=== PATIENT | female | born 1960 | race Caucasian/White ===

== ENCOUNTER 2016-11-17 15:39 | Inpatient (IN) | payer OTHER ==
[~2016-11-17] VITALS: Ht 152.4 cm; Wt 108.3 kg
[~2016-11-17 15:39] MED LIST: AMLO-114 PO; ASPEC81 PO; ATOR-24 PO; ATRIN INH; CARV25TA PO; CLON0.2T PO; CLOP1TAB15 PO; CMBIN INH; EFFSR375 PO; FLV1 PO; HYG/25 PO; LISI40TA PO; MGNO400 PO; NORT50CA PO; POTA20TA13 PO; PRV100 PO; PYR50 PO; VTMB12 PO; XNX25 PO
[2016-11-17 17:12] LABS: BASO % 0.3 %; BASO ABS # 0.03 K/uL (0-0.2); COMPLETE YES; EOS % 0.7 %; HEMATOCRIT 43.4 % (37-47); IG% 0.4 %; LYMPH % 19.7 %; LYMPH ABS # 2.19 K/uL (1.2-3.4); MEAN CELL VOLUME 98.9 fL (80-100); MEAN CORPUSCULAR HEMOGLOBIN 29.4 pg (25-34); MEAN CORPUSCULAR HGB CONC 29.7 g/dl (32-36); MEAN PLATELET VOLUME 11.1 fL (7.4-10.4); MONO % 5.9 %; PLATELET COUNT 243 K/uL (130-400); RED BLOOD COUNT 4.39 M/uL (4.2-5.4); WHITE BLOOD COUNT 11.12 K/uL (4.8-10.8)
[2016-11-17 17:20] LABS: ALT/SGPT 32 U/L (12-78); AST/SGOT 27 U/L (15-37); BLOOD UREA NITROGEN 7 mg/dl (7-18); BUN/CREATININE RATIO 10.3 (10-20); CALCIUM 8.9 mg/dl (8.5-10.1); CHLORIDE 95 mmol/L (98-107); CREATININE 0.64 mg/dl (0.60-1.20); GLUCOSE 88 mg/dl (70-99); POTASSIUM 2.9 mmol/L (3.5-5.1); SODIUM 143 mmol/L (136-145)
[2016-11-17 17:24] LABS: ALB/GLOB RATIO 0.8 (0.9-2); ALKALINE PHOSPHATASE 102 U/L (45-117)
[2016-11-17] MEDS ORDERED: LISI-725 PO (17:32)
[2016-11-17] MEDS ORDERED: MAGN400T6 PO (17:32)
[2016-11-17] MEDS ORDERED: AMLO10TA2 PO (17:32)
[2016-11-17] MEDS ORDERED: ASPI81TA28 PO (17:32)
[2016-11-17] MEDS ORDERED: ALPR0.25 PO (17:32)
[2016-11-17] MEDS ORDERED: CTP/1 PO (17:32)
[2016-11-17] MEDS ORDERED: FOLI1TAB7 PO (17:32)
[2016-11-17] MEDS ORDERED: CARV12.52 PO (17:32)
[2016-11-17] MEDS ORDERED: VENL150T33 PO (17:32)
[2016-11-17] MEDS ORDERED: IPRA1AER2 INH (17:32)
[2016-11-17] MEDS ORDERED: CYAN100020 PO (17:32)
[2016-11-17] MEDS ORDERED: VENL-271 PO (17:32)
--- NOTE | 2016-11-17 17:38 | DIAGNOSTIC IMAGING REPORT ---
CHEST 2 VIEWS ROUTINE CLINICAL HISTORY: Respiratory distress. Dyspnea. COMPARISON STUDY: Chest radiograph June 26, 2016. FINDINGS: There is no pneumothorax. Small left and tlzzx-up-jejamlop right pleural effusions are present. There is associated bibasilar opacities. There is pulmonary vascular congestion. Cardiomegaly is unchanged. IMPRESSION: 1. Small to moderate right and small left pleural effusions with associated bibasilar opacities which favor atelectasis. 2. Pulmonary vascular congestion with suspected mild pulmonary edema. 3. Stable cardiomegaly. Electronically signed by: Wesley Love M.D. 11/17/2016 5:37 PM Dictated Date/Time: 11/17/2016 5:35 PM
[2016-11-17 17:53] LABS: CARBON DIOXIDE 47 mmol/L (21-32)
[2016-11-17] MEDS ORDERED: POTASSIUM CHLORIDE 10 MEQ TABCR PO STA (18:52)
[2016-11-17 19:05] LABS: VEN BLD GAS O2 SATURATION 86.1 %; VEN BLOOD GAS BASE EXCESS 18.2 mmol/L
[2016-11-17] MEDS ORDERED: ONDANSETRON INJ 2 MG/ML 2 ML VIAL IV PRN (20:00)
[2016-11-17] MEDS ORDERED: ACETAMINOPHEN 325 MG TAB PO PRN (20:00)
[2016-11-17] MEDS ORDERED: ALPRAZOLAM 0.25 MG TAB PO PRN (20:00)
[2016-11-17] MEDS ORDERED: NITROGLYCERIN 0.4 MG SL PER TAB CHARGE SL PRN (20:00)
[2016-11-17] MEDS ORDERED: MODA100T17 PO (20:06)
[2016-11-17 20:15] VITALS: PULSE 77; O2SAT 94
[2016-11-17] MEDS ORDERED: ALBUTEROL 0.083% NEBU SOLN 3 ML VIAL INH PRN (20:15)
--- NOTE | 2016-11-17 20:23 | History and Physical ---
History & Physical Date & Time of Service: Nov 17, 2016 at 20:14 Chief Complaint: Retaining Fluid, Trouble Breathing Primary Care Physician: No Doctor, Assigned History of Present Illness Source: patient Patient is a 56 yr old female with PMH of CKD II, Diastolic CHF, Tobacco use disorder, Sleep apnea, COPD, HTN, H/O CVA and other comorbidities presents with history of worsening SOB with exertion since 2 weeks. Also reports chest congestion since 2 days. Chest discomfort is retrosternal in location, dull, radiates to back, increases with exertion and deep breathing, associated with nausea, vomiting, diaphoresis and dizziness. States gaining 30 pounds and worsening bilateral leg swelling. Admits to missing her home medications intermittently. Patient is on 4lNC at baseline and denies any excess requirement. Also reports dry cough and chills but denies wheezing, fever. Also denies orthopnea, PND, abd pain, diarrhea, urinary symptoms, palpitations, headache, blurry vision bt states having generalized weakness. Past Medical/Surgical History Medical Problems: (1) CVA (cerebral vascular accident) Status: Chronic (2) Depression with anxiety Status: Chronic (3) Dyslipidemia Status: Chronic (4) HTN (hypertension) Status: Chronic (5) Hypokalemia Status: Chronic (6) MTHFR mutation Status: Chronic Surgical Problems: (1) History of hysterectomy Status: Chronic (2) Hx of cholecystectomy Status: Chronic (3) Hx of tubal ligation Status: Chronic Family History FH: CHF (congestive heart failure) BROTHER FH: brain aneurysm MOTHER ( in her 40s) FH: diabetes mellitus FATHER ( in his 70s) FH: multiple sclerosis BROTHER Social History Smoking Status: Former Smoker Alcohol Use: none Drug Use: none Housing status: lives alone Immunizations History of Influenza Vaccine: Yes Influenza Vaccine Date: Apr 06, 2015 History of Tetanus Vaccine?: Yes Tetanus Immunization Date: December 19, 2007 History of Pneumococcal: Yes Pneumococcal Date: Jan 24, 2007 Multi-Drug Resistant Organisms History of MDRO: No Allergies Coded Allergies: Penicillins (Verified Allergy, Unknown, 06/21/16) Home Medications Scheduled Amlodipine Besylate (Norvasc), 10 MG PO DAILY Aspirin (Aspirin Ec), 81 MG PO DAILY Atorvastatin (Lipitor), 40 MG PO DAILY Carvedilol (Coreg), 12.5 MG PO BID Chlorthalidone (Hygroton), 25 MG PO QAM Clonidine Hcl (Catapres), 0.1 MG PO BID Clopidogrel (Plavix), 75 MG PO DAILY Cyanocobalamin (Vitamin B12), 500 MCG PO DAILY Folic Acid (Folvite), 1 MG PO DAILY Ipratropium-Albuterol (Combivent Respimat), 1 PUFF INH QID Lisinopril (Zestril), 20 MG PO DAILY Magnesium Oxide (Mag-Ox), 400 MG PO DAILY Modafinil (Provigil), 100 MG PO DAILY Nortriptyline (Pamelor), 50 MG PO HS Potassium Chloride Microencaps (Potassium Chloride Er), 20 MEQ PO DAILY Venlafaxine Hcl (Venlafaxine Hcl Er), 37.5 MG PO DAILY Venlafaxine Hcl (Venlafaxine Hcl Er), 150 MG PO DAILY Scheduled PRN Alprazolam (Xanax), 0.25 MG PO TID PRN for Anxiety Review of Systems See HPI for pertinent positives & negatives. A total of 10 systems reviewed and were otherwise negative. Physical Exam Vital Signs Date Time Temp Pulse Resp B/P Pulse Ox O2 Delivery O2 Flow Rate FiO2 11/17/16 18:24 76 19 147/95 94 Nasal Cannula 3.0 11/17/16 17:28 74 22 150/98 97 Nasal Cannula 3.0 11/17/16 17:05 99 Nasal Cannula 3.0 11/17/16 16:40 96 Nasal Cannula 3.0 11/17/16 16:37 73 11/17/16 16:26 81 20 167/89 99 Nasal Cannula 3.0 11/17/16 15:44 36.8 70 24 142/84 97 Room Air General Appearance: WD/WN, no apparent distress, + obese Head: normocephalic, atraumatic Eyes: normal inspection, PERRL, EOMI, sclerae normal ENT: normal ENT inspection, hearing grossly normal Neck: supple, no JVD, trachea midline Respiratory/Chest: lungs clear, no respiratory distress, no accessory muscle use, + decreased breath sounds, + pertinent finding (Positive chest tenderness) Cardiovascular: regular rate, rhythm, no murmur, + pertinent finding (B/L LE edema) Abdomen/GI: normal bowel sounds, non tender, soft, + pertinent finding (Obese) Back: normal inspection, normal range of motion Extremities/Musculoskelatal: normal inspection, + swelling (B/L LE) 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, no motor/sensory deficits, alert, normal mood/affect, oriented x 3 Skin: normal color, warm/dry, no rash Diagnostics Laboratory Results Results Past 24 Hours Test 11/17/16 16:40 11/17/16 18:50 11/17/16 19:54 11/17/16 20:11 Range/Units White Blood Count 11.12 4.8-10.8 K/uL Red Blood Count 4.39 4.2-5.4 M/uL Hemoglobin 12.9 12.0-16.0 g/dL Hematocrit 43.4 37-47 % Mean Corpuscular Volume 98.9 80-100 fL Mean Corpuscular Hemoglobin 29.4 25-34 pg Mean Corpuscular Hemoglobin Concent 29.7 32-36 g/dl Platelet Count 243 130-400 K/uL Mean Platelet Volume 11.1 7.4-10.4 fL Neutrophils (%) (Auto) 73.0 % Lymphocytes (%) (Auto) 19.7 % Monocytes (%) (Auto) 5.9 % Eosinophils (%) (Auto) 0.7 % Basophils (%) (Auto) 0.3 % Neutrophils # (Auto) 8.11 1.4-6.5 K/uL Lymphocytes # (Auto) 2.19 1.2-3.4 K/uL Monocytes # (Auto) 0.66 0.11-0.59 K/uL Eosinophils # (Auto) 0.08 0-0.5 K/uL Basophils # (Auto) 0.03 0-0.2 K/uL RDW Standard Deviation 49.0 36.4-46.3 fL RDW Coefficient of Variation 13.6 11.5-14.5 % Immature Granulocyte % (Auto) 0.4 % Immature Granulocyte # (Auto) 0.05 0.00-0.02 K/uL Sodium Level 143 136-145 mmol/L Potassium Level 2.9 3.5-5.1 mmol/L Chloride Level 95 98-107 mmol/L Carbon Dioxide Level 47 21-32 mmol/L Anion Gap 1.0 3-11 mmol/L Blood Urea Nitrogen 7 7-18 mg/dl Creatinine 0.64 0.60-1.20 mg/dl Est Creatinine Clear Calc Drug Dose 115.6 ml/min Estimated GFR () 116.4 Estimated GFR (Non- 100.5 BUN/Creatinine Ratio 10.3 10-20 Random Glucose 88 70-99 mg/dl Calcium Level 8.9 8.5-10.1 mg/dl Total Bilirubin 0.9 0.2-1 mg/dl Aspartate Amino Transf (AST/SGOT) 27 15-37 U/L Alanine Aminotransferase (ALT/SGPT) 32 12-78 U/L Alkaline Phosphatase 102 45-117 U/L Troponin I < 0.015 0-0.045 ng/ml Pro-B-Type Natriuretic Peptide 3729 0-900 pg/ml Total Protein 8.0 6.4-8.2 gm/dl Albumin 3.5 3.4-5.0 gm/dl Globulin 4.5 2.5-4.0 gm/dl Albumin/Globulin Ratio 0.8 0.9-2 Venous Blood pH 7.36 7.36-7.41 Venous Blood Partial Pressure CO2 87 38.0-50.0 mmHg Venous Blood Partial Pressure O2 52 mmHg Venous Blood HCO3 48 mmol/L Venous Blood Oxygen Saturation 86.1 % Venous Blood Base Excess 18.2 mmol/L Diagnostic Radiology CXR: 1. Small to moderate right and small left pleural effusions with associated bibasilar opacities which favor atelectasis. 2. Pulmonary vascular congestion with suspected mild pulmonary edema. 3. Stable cardiomegaly. EKG EKG:pending Impression Assessment and Plan ACUTE ON CHRONIC DIASTOLIC HEART FAILURE HYPOXIC/HYPERCAPNIC RESPIRATORY FAILURE AND OXYGEN DEPENDENCY Admit to tele Presents with worsening SOB on exertion and chest congestion, dry cough, weight gain and leg swelling CXR: Pulm vascular congestion with pleural effusions Has underlying COPD, Former smoker, sleep apnea. ? suspect obesity hypoventilation syndrome Last ECHO: May 2016: Preserved EF, grade I diastolic Admits to medication non compliance Start IV lasix 40mg BID Daily weight, I/Os, Fluid and salt restriction Oxygen support Update ECHO CHEST PAIN Less likely: As pleuritic type, reproducible R/O ACS Check serial cardiac enzymes, EKG Initial Troponin: normal Check resting echo for wall motion abnormalities Consider stress test if needed HYPOKALEMIA Likely to secondary to home diuretics:chlorthalidone Will replace potassium Check Mag levels Monitor while on IV diuretics HTN Slightly elevated continue carvedilol, amlodipine, lisinopril, and clonidine chlorthalidone on hold while on Lasix HX CVA, MTHFR MUTATION continue statin, ASA, and Plavix DEPRESSION, ANXIETY continue Effexor, Nortriptyline COPD: No signs of exacerbation Continue inhalers CKD II: Stable Monitor renal function Obesity: BMI:49.9 DVT PX SQ Heparin CODE STATUS: Full code DISPOSITION: Monitor in Tele VTE Prophylaxis VTE Risk Assessment Done? Y/N: Yes Risk Level: Low
[2016-11-17 20:48] LABS: INR 1.1 (0.9-1.1); PROTHROMBIN TIME (PATIENT) 11.4 SECONDS (9.0-12.0)
[2016-11-17] MEDS ORDERED: NORTRIPTYLINE HCL 25 MG CAP PO SCH (21:00)
[2016-11-17 21:05] VITALS: PULSE 90; O2SAT 94
[2016-11-17 21:37] VITALS: BP 146/85; PULSE 76; TEMP 36.7; O2SAT 94; Ht 152.4 cm; Wt 108.3 kg
[2016-11-17 22:47] VITALS: BP 146/92; PULSE 76
[2016-11-17] MEDS: POTASSIUM CHLR 10 MEQ / WTR 10 MEQ in PREMIXED WATER 100 ML IV SCH (22:48)
[2016-11-17] MEDS: FUROSEMIDE INJ 40 MG in SYRINGE 0 ML IV SCH (22:48)
[2016-11-17] MEDS: CLONIDINE HCL 0.1 MG TAB PO SCH (22:55)
[2016-11-17] MEDS: NORTRIPTYLINE HCL 25 MG CAP PO SCH (22:55)
[2016-11-17] MEDS: CARVEDILOL 12.5 MG TAB PO SCH (22:56)
[2016-11-17] MEDS: IPRATROPIUM BROMIDE/ALBUTEROL respimat INH INH SCH (22:57)
[2016-11-17] MEDS: HEPARIN SOD 5000 UNIT/0.5 ML CARP SQ SCH (23:01)
[2016-11-17 23:07] VITALS: PULSE 76; O2SAT 95
--- NOTE | 2016-11-17 23:31 | EMERGENCY ROOM VISIT NOTE ---
History Report prepared by Abdulaziz: Nina Munoz Under the Supervision of: Dr. Elliot Nixon D.O. 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 The patient states that she normally wears 4 L of oxygen all the time but has still been experiencing worsening shortness of breath. She states that over the last month she also has some chest tightness and congestion as well as a cough. The patient states that she saw her PCP today and they referred her to come into the ED. The patient states that along with her SOB she has had a weight gain of about 30 lbs in the last month. She states that she does not weight herself daily even though her PCP told her to due to her history of CHF. The patient states that she takes a diuretic daily but states she has missed a dose once in a while. The patient states that she also has some increased swelling in her legs. The patient states that she has a history of COPD but no history of using blood thinners or any history of atrial fibrillation or blood clots. The patient states that she normal is able to ambulate by herself but the last few days she has felt too weak and worsening shortness of breath with exertion to ambulate on her own. The patient states that she has had a hard time sleeping recently but states she sleeps lying flat with only one pillow and has not had to increase the amount of pillow she uses to sit up more straight when she sleeps. 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 increased swelling in legs, 30 lbs weight gain over last month, unable to ambulate, difficulty sleeping. Review of Systems See above for pertinent positives & negatives. A total of 10 systems reviewed and were otherwise negative. Past Medical & Surgical Medical Problems: (1) CVA (cerebral vascular accident) (2) Depression with anxiety (3) Dyslipidemia (4) HTN (hypertension) (5) Hypokalemia (6) MTHFR mutation (7) SOB (shortness of breath) Surgical Problems: (1) History of hysterectomy (2) Hx of cholecystectomy (3) Hx of tubal ligation Family History FH: CHF (congestive heart failure) BROTHER FH: brain aneurysm MOTHER ( in her 40s) FH: diabetes mellitus FATHER ( in his 70s) FH: multiple sclerosis BROTHER Social History Smoking Status: Former Smoker Marital Status: single Occupation Status: disabled Current/Historical Medications Scheduled Amlodipine Besylate (Norvasc), 10 MG PO DAILY Aspirin (Aspirin Ec), 81 MG PO DAILY Atorvastatin (Lipitor), 40 MG PO DAILY Carvedilol (Coreg), 12.5 MG PO BID Chlorthalidone (Hygroton), 25 MG PO QAM Clonidine Hcl (Catapres), 0.1 MG PO BID Clopidogrel (Plavix), 75 MG PO DAILY Cyanocobalamin (Vitamin B12), 500 MCG PO DAILY Folic Acid (Folvite), 1 MG PO DAILY Ipratropium-Albuterol (Combivent Respimat), 1 PUFF INH QID Lisinopril (Zestril), 20 MG PO DAILY Magnesium Oxide (Mag-Ox), 400 MG PO DAILY Modafinil (Provigil), 100 MG PO DAILY Nortriptyline (Pamelor), 50 MG PO HS Potassium Chloride Microencaps (Potassium Chloride Er), 20 MEQ PO DAILY Venlafaxine Hcl (Venlafaxine Hcl Er), 37.5 MG PO DAILY Venlafaxine Hcl (Venlafaxine Hcl Er), 150 MG PO DAILY Scheduled PRN Alprazolam (Xanax), 0.25 MG PO TID PRN for Anxiety Allergies Coded Allergies: Penicillins (Verified Allergy, Unknown, 06/21/16) Physical Exam Vital Signs Date Time Temp Pulse Resp B/P Pulse Ox O2 Delivery O2 Flow Rate FiO2 11/17/16 18:24 76 19 147/95 94 Nasal Cannula 3.0 11/17/16 17:28 74 22 150/98 97 Nasal Cannula 3.0 11/17/16 17:05 99 Nasal Cannula 3.0 11/17/16 16:40 96 Nasal Cannula 3.0 11/17/16 16:37 73 11/17/16 16:26 81 20 167/89 99 Nasal Cannula 3.0 11/17/16 15:44 36.8 70 24 142/84 97 Room Air Physical Exam GENERAL: Morbidly obese, sitting up in bed on nasal cannula, disheveled. EYE EXAM: normal conjunctiva OROPHARYNX: no exudate, no erythema, lips, buccal mucosa, and tongue normal and mucous membranes are moist NECK: supple, no nuchal rigidity, no adenopathy, non-tender LUNGS: Diminished and course bilaterally. Normal chest wall mechanics HEART: distant, no murmurs, S1 normal and S2 normal ABDOMEN: abdomen soft, non-tender, normo-active bowel sounds, no masses, no rebound or guarding. BACK: Back is symmetrical on inspection and there is no deformity, no midline tenderness, no CVA tenderness. SKIN: no rashes and no bruising UPPER EXTREMITIES: upper extremities are grossly normal. LOWER EXTREMITIES: faint pitting edema. NEURO EXAM: Normal sensorium, cranial nerves II-XII intact, normal speech, no weakness of arms, no weakness of legs. Gross sensation intact Medical Decision & Procedures ER Provider Diagnostic Interpretation: Radiology results as stated below per my review and the radiologist's interpretation: CHEST 2 VIEWS ROUTINE CLINICAL HISTORY: Respiratory distress. Dyspnea. COMPARISON STUDY: Chest radiograph June 26, 2016. FINDINGS: There is no pneumothorax. Small left and hqwiu-am-prchakal right pleural effusions are present. There is associated bibasilar opacities. There is pulmonary vascular congestion. Cardiomegaly is unchanged. IMPRESSION: 1. Small to moderate right and small left pleural effusions with associated bibasilar opacities which favor atelectasis. 2. Pulmonary vascular congestion with suspected mild pulmonary edema. 3. Stable cardiomegaly. Electronically signed by: Wesley Love M.D. 11/17/2016 5:37 PM Dictated Date/Time: 11/17/2016 5:35 PM Laboratory Results 11/17/16 16:40 Red Blood Count 4.39, Mean Corpuscular Volume 98.9, Mean Corpuscular Hemoglobin 29.4, Mean Corpuscular Hemoglobin Concent 29.7, Mean Platelet Volume 11.1, Neutrophils (%) (Auto) 73.0, Lymphocytes (%) (Auto) 19.7, Monocytes (%) (Auto) 5.9, Eosinophils (%) (Auto) 0.7, Basophils (%) (Auto) 0.3, Neutrophils # (Auto) 8.11, Lymphocytes # (Auto) 2.19, Monocytes # (Auto) 0.66, Eosinophils # (Auto) 0.08, Basophils # (Auto) 0.03 11/17/16 16:40 Test 11/17/16 16:40 11/17/16 18:50 White Blood Count 11.12 K/uL (4.8-10.8) Red Blood Count 4.39 M/uL (4.2-5.4) Hemoglobin 12.9 g/dL (12.0-16.0) Hematocrit 43.4 % (37-47) Mean Corpuscular Volume 98.9 fL (80-100) Mean Corpuscular Hemoglobin 29.4 pg (25-34) Mean Corpuscular Hemoglobin Concent 29.7 g/dl (32-36) Platelet Count 243 K/uL (130-400) Mean Platelet Volume 11.1 fL (7.4-10.4) Neutrophils (%) (Auto) 73.0 % Lymphocytes (%) (Auto) 19.7 % Monocytes (%) (Auto) 5.9 % Eosinophils (%) (Auto) 0.7 % Basophils (%) (Auto) 0.3 % Neutrophils # (Auto) 8.11 K/uL (1.4-6.5) Lymphocytes # (Auto) 2.19 K/uL (1.2-3.4) Monocytes # (Auto) 0.66 K/uL (0.11-0.59) Eosinophils # (Auto) 0.08 K/uL (0-0.5) Basophils # (Auto) 0.03 K/uL (0-0.2) RDW Standard Deviation 49.0 fL (36.4-46.3) RDW Coefficient of Variation 13.6 % (11.5-14.5) Immature Granulocyte % (Auto) 0.4 % Immature Granulocyte # (Auto) 0.05 K/uL (0.00-0.02) Anion Gap 1.0 mmol/L (3-11) Est Creatinine Clear Calc Drug Dose 115.6 ml/min Estimated GFR () 116.4 Estimated GFR (Non- 100.5 BUN/Creatinine Ratio 10.3 (10-20) Calcium Level 8.9 mg/dl (8.5-10.1) Total Bilirubin 0.9 mg/dl (0.2-1) Aspartate Amino Transf (AST/SGOT) 27 U/L (15-37) Alanine Aminotransferase (ALT/SGPT) 32 U/L (12-78) Alkaline Phosphatase 102 U/L (45-117) Pro-B-Type Natriuretic Peptide 3729 pg/ml (0-900) Total Protein 8.0 gm/dl (6.4-8.2) Albumin 3.5 gm/dl (3.4-5.0) Globulin 4.5 gm/dl (2.5-4.0) Albumin/Globulin Ratio 0.8 (0.9-2) Venous Blood pH 7.36 (7.36-7.41) Venous Blood Partial Pressure CO2 87 mmHg (38.0-50.0) Venous Blood Partial Pressure O2 52 mmHg Venous Blood HCO3 48 mmol/L Venous Blood Oxygen Saturation 86.1 % Venous Blood Base Excess 18.2 mmol/L Laboratory results per my review. Medications Administered Medications (Trade) Dose Ordered Sig/Serjio Route Start Time Stop Time Status Last Admin Dose Admin Potassium Chloride (Klor-Con M10) 40 meq NOW STAT PO 11/17/16 18:52 11/17/16 18:53 DC 11/17/16 19:10 40 MEQ ECG Indication: SOB/dyspnea Rate (beats per minute): 67 Rhythm: sinus rhythm Findings: other (Normal intervals, Normal axis, poor baseline in inferior leads. ) ED Course ED COURSE: Vital signs were reviewed and showed Normal vitals The patients medical record was reviewed The above diagnostic studies were performed and reviewed. ED treatments and interventions as stated above. 1644: The patient was evaluated in room A11. A complete history and physical examination was performed. 1851: Ordered Potassium Chloride 40 meq PO. 1856: I revaluated the patient and she was hemodynamically stable. .I discussed my findings with the patient and she understands and agrees with being admitted to the hospital for further management and care of her symptoms.Based on the patients age, coexisting illnesses, exam and lab findings the decision to treat as an inpatient was made. 1917: I discussed the case with Dr. Emmanuelle Stacy Hospitalist. He agreed to evaluate the patient for further management and care. Medical Decision Differential diagnoses includes but is not limited to pneumonia, bronchitis, COPD/Asthma exacerbation, pneumothorax, pulmonary embolism, congestive heart failure, acute coronary syndrome Patient is a 56-year-old female who presents the ER for shortness of breath which has been worsening over the past month associated with a dry cough. She notes that she has gained 30 pounds in the past 3 weeks. She also admits to chest pain and congestion for the past several weeks as well. She chronically wears 4 L nasal cannula. Labs show no significant leukocytosis, BMP shows hypokalemia at 2.9 which was repleted along with an elevated CO2 of 47. BMP was elevated at 4000. VBG shows a CO2 of 87. Patient remained on nasal cannula and was placed on BiPAP for her hypercarbic respiratory failure. I do believe that there is component of CHF with her chest x-ray supports a bilateral pleural effusions and pulmonary edema which I believe is slightly worse than her previous. EKG was unchanged. Patient was updated bedside and discussed with internal medicine for admission. Consults Time Called: 1914 Consulting Physician: Dr. Emmanuelle Stacy [facility]. Returned Call: 1917 I discussed the case with Dr. Emmanuelle Stacy Hospitalist. He agreed to evaluate the patient for further management and care. Impression Primary Impression: Acute respiratory failure with hypoxia and hypercarbia Additional Impressions: Pleural effusion SOB (shortness of breath) Scribe Attestation The scribe's documentation has been prepared under my direction and personally reviewed by me in its entirety. I confirm that the note above accurately reflects all work, treatment, procedures, and medical decision making performed by me. Departure Information Dispostion Being Evaluated By Hospitalist Referrals Toan Dozier M.D. (PCP) Patient Instructions My [facility] Problem Qualifiers
[2016-11-18] VITALS (13 sets, daily range): BP systolic 98–153; BP diastolic 65–93; PULSE 63–72; TEMP 36.4–37.1; O2SAT 91–96
[2016-11-18] MEDS: POTASSIUM CHLR 10 MEQ / WTR 10 MEQ in PREMIXED WATER 100 ML IV SCH ×3 (00:11→02:36)
[2016-11-18] MEDS: HEPARIN SOD 5000 UNIT/0.5 ML CARP SQ SCH ×3 (05:55→20:44)
[2016-11-18 06:29] LABS: URINE APPEARANCE CLEAR (CLEAR); URINE BILIRUBIN NEG (NEG); URINE COLOR YELLOW; URINE NITRITE NEG (NEG); URINE PH 6.5 (4.5-7.5); URINE SPECIFIC GRAVITY 1.012 (1.000-1.030); UROBILINOGEN NEG (NEG)
[2016-11-18 06:33] LABS: MANUAL MICROSCOPIC REQUIRED? NO; REVIEW REQ? NO
[2016-11-18 07:55] LABS: BASO % 0.3 %; BASO ABS # 0.03 K/uL (0-0.2); HEMATOCRIT 39.9 % (37-47); IG% 0.1 %; LYMPH % 28.9 %; LYMPH ABS # 2.72 K/uL (1.2-3.4); MEAN CORPUSCULAR HEMOGLOBIN 29.2 pg (25-34); MEAN CORPUSCULAR HGB CONC 29.8 g/dl (32-36); MEAN PLATELET VOLUME 10.8 fL (7.4-10.4); MONO % 6.5 %; NEUT % 62.2 %; PLATELET COUNT 227 K/uL (130-400); RED BLOOD COUNT 4.07 M/uL (4.2-5.4); WHITE BLOOD COUNT 9.41 K/uL (4.8-10.8)
[2016-11-18] MEDS ORDERED: PERFLUTREN LIPID MICROSPHERE (DEFINITY) IV ONE (08:03)
[2016-11-18 08:17] LABS: COMPLETE YES; STOMATOCYTE 2+
[2016-11-18] MEDS: FUROSEMIDE INJ 40 MG in SYRINGE 0 ML IV SCH ×2 (08:23→17:12)
[2016-11-18] MEDS: MAGNESIUM OXIDE 400 MG TAB PO SCH (08:24)
[2016-11-18] MEDS: CLONIDINE HCL 0.1 MG TAB PO SCH ×2 (08:24→20:40)
[2016-11-18] MEDS: ASPIRIN 81 MG ECTAB PO SCH (08:24)
[2016-11-18 08:25] LABS: BUN/CREATININE RATIO 11.1 (10-20); CREATININE 0.63 mg/dl (0.60-1.20); POTASSIUM 2.9 mmol/L (3.5-5.1)
[2016-11-18] MEDS: LISINOPRIL 20 MG TAB PO SCH (08:25)
[2016-11-18] MEDS: VENLAFAXINE HCL XR 150 MG CAPXR PO SCH (08:25)
[2016-11-18] MEDS: CARVEDILOL 12.5 MG TAB PO SCH ×2 (08:25→20:40)
[2016-11-18] MEDS: ATORVASTATIN 40 MG TAB PO SCH (08:26)
[2016-11-18] MEDS: AMLODIPINE BESYLATE 5 MG TAB PO SCH (08:26)
[2016-11-18] MEDS: CLOPIDOGREL BISULFATE 75 MG TAB PO SCH (08:26)
[2016-11-18] MEDS: POTASSIUM CHLORIDE 20 MEQ TABCR PO SCH (08:27)
[2016-11-18] MEDS: IPRATROPIUM BROMIDE/ALBUTEROL respimat INH INH SCH (08:31)
[2016-11-18] MEDS: MODAFINIL 100 MG TAB PO SCH (08:31)
[2016-11-18 08:49] LABS: CALCIUM 8.6 mg/dl (8.5-10.1)
--- NOTE | 2016-11-18 10:58 | Progress Note ---
Medicine Progress Note Date & Time of Visit: Nov 18, 2016 at 10:43. Subjective patient seen resting in bed, comfortable on nasal cannula states her breathing has improved compared to yesterday cough is less, no sputum no chest pain denies other symptoms Objective Last 8 Hrs Date Time Temp Pulse Resp B/P Pulse Ox O2 Delivery O2 Flow Rate FiO2 11/18/16 07:35 36.4 68 20 153/93 94 BiPAP 11/18/16 05:53 68 94 40 11/18/16 04:18 36.8 72 18 119/67 93 CPAP 11/18/16 04:00 BiPAP Physical Exam: General-oriented x 3, not in distress, speaks in sentences with no effort Head- atraumatic Eyes- EOMI, anicteric ENT- oropharynx clear Neck- supple, no JVD, no adenopathy, no thyromegaly; no bruits appreciated Lungs- mild rales at the right base, no wheezing Heart- regular rhythm; no murmur, normal rate Abdomen- normal bowel sounds, soft, nontender Extremities- no pretibial edema, no calf tenderness; peripheral pulses intact Neuro- alert, oriented x 3;no gross focal deficits Skin- warm & dry Laboratory Results: Last 24 Hours Test 11/17/16 16:40 11/17/16 18:50 11/17/16 20:31 11/18/16 02:22 White Blood Count 11.12 K/uL Red Blood Count 4.39 M/uL Hemoglobin 12.9 g/dL Hematocrit 43.4 % Mean Corpuscular Volume 98.9 fL Mean Corpuscular Hemoglobin 29.4 pg Mean Corpuscular Hemoglobin Concent 29.7 g/dl Platelet Count 243 K/uL Mean Platelet Volume 11.1 fL Neutrophils (%) (Auto) 73.0 % Lymphocytes (%) (Auto) 19.7 % Monocytes (%) (Auto) 5.9 % Eosinophils (%) (Auto) 0.7 % Basophils (%) (Auto) 0.3 % Neutrophils # (Auto) 8.11 K/uL Lymphocytes # (Auto) 2.19 K/uL Monocytes # (Auto) 0.66 K/uL Eosinophils # (Auto) 0.08 K/uL Basophils # (Auto) 0.03 K/uL RDW Standard Deviation 49.0 fL RDW Coefficient of Variation 13.6 % Immature Granulocyte % (Auto) 0.4 % Immature Granulocyte # (Auto) 0.05 K/uL Sodium Level 143 mmol/L Potassium Level 2.9 mmol/L Chloride Level 95 mmol/L Carbon Dioxide Level 47 mmol/L Anion Gap 1.0 mmol/L Blood Urea Nitrogen 7 mg/dl Creatinine 0.64 mg/dl Est Creatinine Clear Calc Drug Dose 115.6 ml/min Estimated GFR () 116.4 Estimated GFR (Non- 100.5 BUN/Creatinine Ratio 10.3 Random Glucose 88 mg/dl Calcium Level 8.9 mg/dl Total Bilirubin 0.9 mg/dl Aspartate Amino Transf (AST/SGOT) 27 U/L Alanine Aminotransferase (ALT/SGPT) 32 U/L Alkaline Phosphatase 102 U/L Troponin I < 0.015 ng/ml < 0.015 ng/ml < 0.015 ng/ml Pro-B-Type Natriuretic Peptide 3729 pg/ml Total Protein 8.0 gm/dl Albumin 3.5 gm/dl Globulin 4.5 gm/dl Albumin/Globulin Ratio 0.8 Venous Blood pH 7.36 Venous Blood Partial Pressure CO2 87 mmHg Venous Blood Partial Pressure O2 52 mmHg Venous Blood HCO3 48 mmol/L Venous Blood Oxygen Saturation 86.1 % Venous Blood Base Excess 18.2 mmol/L Prothrombin Time 11.4 SECONDS Prothromb Time International Ratio 1.1 Hepatitis C Antibody Screen NEG Test 11/18/16 06:09 11/18/16 07:35 11/18/16 10:25 Urine Color YELLOW Urine Appearance CLEAR Urine pH 6.5 Urine Specific [place] 1.012 Urine Protein NEG Urine Glucose (UA) NEG Urine Ketones 2+ Urine Occult Blood NEG Urine Nitrite NEG Urine Bilirubin NEG Urine Urobilinogen NEG Urine Leukocyte Esterase NEG White Blood Count 9.41 K/uL Red Blood Count 4.07 M/uL Hemoglobin 11.9 g/dL Hematocrit 39.9 % Mean Corpuscular Volume 98.0 fL Mean Corpuscular Hemoglobin 29.2 pg Mean Corpuscular Hemoglobin Concent 29.8 g/dl Platelet Count 227 K/uL Mean Platelet Volume 10.8 fL Neutrophils (%) (Auto) 62.2 % Lymphocytes (%) (Auto) 28.9 % Monocytes (%) (Auto) 6.5 % Eosinophils (%) (Auto) 2.0 % Basophils (%) (Auto) 0.3 % Neutrophils # (Auto) 5.85 K/uL Lymphocytes # (Auto) 2.72 K/uL Monocytes # (Auto) 0.61 K/uL Eosinophils # (Auto) 0.19 K/uL Basophils # (Auto) 0.03 K/uL RDW Standard Deviation 48.1 fL RDW Coefficient of Variation 13.4 % Immature Granulocyte % (Auto) 0.1 % Immature Granulocyte # (Auto) 0.01 K/uL Stomatocytes 2+ Sodium Level 145 mmol/L Potassium Level 2.9 mmol/L Chloride Level 91 mmol/L Carbon Dioxide Level 54 mmol/L Anion Gap 0.0 mmol/L Blood Urea Nitrogen 7 mg/dl Creatinine 0.63 mg/dl Est Creatinine Clear Calc Drug Dose 116.1 ml/min Estimated GFR () 117.0 Estimated GFR (Non- 101.0 BUN/Creatinine Ratio 11.1 Random Glucose 70 mg/dl Calcium Level 8.6 mg/dl Troponin I 0.016 ng/ml Pro-B-Type Natriuretic Peptide 3045 pg/ml Assessment & Plan ACUTE ON CHRONIC DIASTOLIC HEART FAILURE CHRONIC HYPOXIC/HYPERCAPNIC RESPIRATORY FAILURE Presents with worsening SOB on exertion and chest congestion, dry cough, weight gain and leg swelling CXR: Pulm vascular congestion with pleural effusions Has underlying COPD, Former smoker, sleep apnea. ? suspect obesity hypoventilation syndrome Last ECHO: May 2016: Preserved EF, grade I diastolic -- from non adherence to medications, diet -- continue Lasix 40mg BID monitor i&o ff up echo CHEST PAIN R/O ACS cardiac markers negative ekg: no signs of ischemia continue Aspirin, Plavix, Statin, Carvedilol, Lisinopril will consult Cardiology HYPOKALEMIA Likely to secondary to home diuretics:chlorthalidone - oral K ordered check Mg HTN continue carvedilol, amlodipine, lisinopril, and clonidine chlorthalidone on hold while on Lasix HX CVA, MTHFR MUTATION continue statin, ASA, and Plavix DEPRESSION, ANXIETY stable continue Effexor, Nortriptyline COPD stable change Combivent to scheduled Nebs CKD II: Stable Monitor renal function Obesity: BMI:49.9 DVT PX SQ Heparin CODE STATUS: Full code DISPOSITION: Monitor in Tele Current Inpatient Medications: Current Inpatient Medications Medications (Trade) Dose Ordered Sig/Serjio Route Start Time Stop Time Status Last Admin Dose Admin Heparin Sodium (Porcine) (Heparin Sq 5000 Unit/0.5ml) 5,000 unit Q8 SQ 11/17/16 22:00 12/17/16 21:59 11/18/16 05:55 5,000 UNIT Acetaminophen (Tylenol Tab) 650 mg Q4H PRN PO 11/17/16 20:00 12/17/16 19:59 Ondansetron HCl (Zofran Inj) 4 mg Q6H PRN IV 11/17/16 20:00 12/17/16 19:59 Nitroglycerin 0.4 mg 0.4 mg UD PRN SL 11/17/16 20:00 12/17/16 19:59 Furosemide/Syringe (Lasix Inj/ Syringe) 4 ml @ 4 mls/min BID17 IV 11/17/16 21:00 12/17/16 20:59 11/18/16 08:23 4 MLS/MIN Alprazolam (Xanax Tab) 0.25 mg TID PRN PO 11/17/16 20:00 12/17/16 19:59 Amlodipine Besylate (Norvasc Tab) 10 mg DAILY PO 11/18/16 09:00 12/18/16 08:59 11/18/16 08:26 10 MG Aspirin (Ecotrin Tab) 81 mg DAILY PO 11/18/16 09:00 12/18/16 08:59 11/18/16 08:24 81 MG Atorvastatin Calcium (Lipitor Tab) 40 mg DAILY PO 11/18/16 09:00 12/18/16 08:59 11/18/16 08:26 40 MG Carvedilol (Coreg Tab) 12.5 mg BID PO 11/17/16 21:00 12/17/16 20:59 11/18/16 08:25 12.5 MG Clonidine HCl (Catapres Tab) 0.1 mg BID PO 11/17/16 21:00 12/17/16 20:59 11/18/16 08:24 0.1 MG Clopidogrel Bisulfate (plAVix TAB) 75 mg DAILY PO 11/18/16 09:00 12/18/16 08:59 11/18/16 08:26 75 MG Folic Acid (Folvite Tab) 1 mg DAILY PO 11/18/16 09:00 12/18/16 08:59 11/18/16 08:24 1 MG Albuterol/ Ipratropium (Combivent Respimat Inh) 1 puffs QID INH 11/17/16 21:00 12/17/16 20:59 11/18/16 08:31 1 PUFFS Lisinopril (Zestril Tab) 20 mg DAILY PO 11/18/16 09:00 12/18/16 08:59 11/18/16 08:25 20 MG Magnesium Oxide (Mag-Ox Tab) 400 mg DAILY PO 11/18/16 09:00 12/18/16 08:59 11/18/16 08:24 400 MG Nortriptyline HCl (Pamelor Cap) 50 mg HS PO 11/17/16 21:00 12/17/16 20:59 11/17/16 22:55 50 MG Potassium Chloride (Klor-Con Tab) 20 meq DAILY PO 11/18/16 09:00 12/18/16 08:59 11/18/16 08:27 20 MEQ Venlafaxine HCl (effeXOR EXTENDED REL CAP) 150 mg DAILY PO 11/18/16 09:00 12/18/16 08:59 11/18/16 08:25 150 MG Modafinil (proVIGIL TAB) 100 mg DAILY PO 11/18/16 09:00 12/18/16 08:59 11/18/16 08:31 100 MG Albuterol Sulfate (Ventolin 0.083% 2.5MG/3ML Neb) 2.5 mg Q6R PRN INH 11/17/16 20:15 12/17/16 20:14 Potassium Chloride (Klor-Con Tab) 40 meq ONE PO 11/18/16 10:30 12/18/16 10:29 UNV
[2016-11-18] MEDS ORDERED: POTASSIUM CHLORIDE 20 MEQ TABCR PO ONE ×2 (11:45→18:45)
--- NOTE | 2016-11-18 13:48 | CARDIOLOGY CONSULTATION ---
DATE OF CONSULTATION: 11/18/2016 REFERRING PHYSICIAN: Regis schaefer. REASON FOR CONSULTATION: Shortness of breath. HISTORY OF PRESENT ILLNESS: This is a 56-year-old female who is morbidly obese and continues to smoke cigarettes. She was admitted at the end of May last year with hypoxic and hypercapnic respiratory failure. She had a prolonged hospital stay. She is also treated for depression and anxiety. The patient was eventually able to be discharged home. The patient has had no cardiology followup after her hospital admission. When asked who her primary care physician, she states she does not have any. When asked who provides her with medications, she says Dr. Randolph from [facility]. During her last hospital admission, she had an echocardiogram that showed preserved LV function with normal ejection fraction and no significant valvular pathology. There was some evidence of diastolic dysfunction. She presented with complaints of having progressive shortness of breath over the past 2 weeks and chest congestion for past 2 days. ALLERGIES: PENICILLIN. PAST MEDICAL HISTORY: As outlined above, the patient has a history of morbid obesity, cigarette smoking with COPD, sleep apnea, diastolic heart failure and major depression. She is also treated for sleep apnea. SOCIAL HISTORY: She continues to smoke cigarettes. FAMILY MEDICAL HISTORY: Significant for diabetes. REVIEW OF SYSTEMS: A 10-point review of systems is negative except for a history of chief complaint. PHYSICAL EXAMINATION: GENERAL: She is alert. VITAL SIGNS: Blood pressure is 140/80, pulse is regular at 80, and respirations are 16. GENERAL APPEARANCE: The patient is morbidly obese. HEENT: Normocephalic. Pupils are equal, round to light. NECK: Neck veins are flat. Carotids have good upstrokes bilaterally without bruits. RESPIRATORY: Breath sounds equal bilaterally and clear to auscultation. CARDIOVASCULAR: Heart has a regular rhythm. Normal S1 and S2. No S3 or S4. No cardiac rubs or murmurs. GASTROINTESTINAL: Abdomen is soft and nontender without organomegaly. EXTREMITIES: Free of edema, digit clubbing, or cyanosis. NEUROLOGIC: Grossly intact. SKIN: Warm to touch. LYMPH NODES: Negative to palpation. LABORATORY DATA: Hemoglobin is 12.9 and WBC count is 11.12. Creatinine is 0.64, BUN is 7, and potassium is 2.9 and it is being supplemented. EKG shows a sinus rhythm without acute changes. IMPRESSION: 1. Chronic obstructive pulmonary disease. 2. Cigarette smoking. 3. Morbid obesity. 4. Sleep apnea. 5. Obesity hypoventilation syndrome. 6. Chronic diastolic heart failure. RECOMMENDATIONS: I encouraged the patient to stop smoking as this would probably gain the most benefit for her. Her potassium is being supplemented. I do not believe her chest pain is related to cardiac origin. Her chest x-ray that was completed is very much underpenetrated. I would continue the IV Lasix. I will review the echocardiogram when it is completed.
--- NOTE | 2016-11-18 14:06 | ECHOCARDIOGRAM REPORT ---
*NOTICE TO RECEIVING DEMOCRAT AGENCY This information is strictly Confidential and protected under [place] law. [place] law prohibits you from making any further disclosure of this information unless further disclosure is expressly permitted by the written consent of the person to whom it pertains or is authorized by law. A general authorization for the release of medical or other information is not sufficient for this purpose. Hospital accepts no responsibility if the information is made available to any other person, INCLUDING THE PATIENT. Interpretation Summary * Name: WOLFGANG BENTON Study Date: 11/18/2016 07:36 AM BP: 119/67 mmHg * Patient Location: [facility]\S\N283\S\1 HR: 68 * : 1960 (M/d/yyyy) Gender: Female Height: 60 in * Age: 56 yrs Ethnicity: [place] Weight: 255 lb * Ordering Physician: Loco Handley * Performed By: Terri Martin * * Reason For Study: CHF * BSA: 2.1 m2 * -- Conclusions -- * There is moderate concentric left ventricular hypertrophy. * Left ventricular systolic function is normal. * Ejection Fraction = 65-70%. * There is moderate right ventricular hypertrophy. * The right ventricular systolic function is normal. * Diastolic dysfunction, Grade II, consistent with elevated left atrial pressure. Procedure Details * A complete two-dimensional transthoracic echocardiogram was performed (2D, M-mode, Doppler and color flow Doppler). * The study was technically difficult. * There were technical limitations due to patient'sbody habitus * A contrast injection of Definity was performed to improve assessment of LV function. * Contrast was injected into an intravenous site in the left arm. * One vial of Definity ultrasound contrast was diluted in normal saline to a total volume of 10 ml. A total of '2' ml of solution was administered during imaging. * Lot # [id number] of Definity utilized for procedure. * Expiration date 11/07. * The attending nurse who injected the contrast agent was IZZY YU RN. Left Ventricle * The left ventricle is normal in size. * There is moderate concentric left ventricular hypertrophy. * Ejection Fraction = 65-70%. * Left ventricular systolic function is normal. * The left ventricular wall motion is normal. Right Ventricle * The right ventricle is grossly normal size. * There is moderate right ventricular hypertrophy. * The right ventricular systolic function is normal. Atria * The left atrium is moderately dilated. * The right atrium is moderately dilated. Mitral Valve * The mitral valve is not well visualized. * Significant mitral regurgitation is absent. Tricuspid Valve * The tricuspid valve is not well visualized. * Significant tricuspid regurgitation is absent. Aortic Valve * The aortic valve is tricuspid. The leaflet thickness if normal. There is no aortic stenosis, and no significant insufficiency. * No hemodynamically significant valvular aortic stenosis. * There is no significant aortic regurgitation. Left Ventricular Diastolic Function * Diastolic dysfunction, Grade II, consistent with elevated left atrial pressure. MMode 2D Measurements and Calculations IVSd 1.5 cm IVSs 2.0 cm LVIDd 4.7 cm LVIDs 2.9 cm LVPWd 1.6 cm LVPWs 2.6 cm IVS/LVPW 0.91 FS 39.3 % EDV(Teich) 102.4 ml ESV(Teich) 31.0 ml EF(Teich) 69.7 % EDV(cubed) 103.9 ml ESV(cubed) 23.3 ml EF(cubed) 77.6 % % IVS thick 36.5 % % LVPW thick 63.7 % LV mass(C)d 303.2 grams LV mass(C)dI 146.5 grams/m\S\2 LV mass(C)s 328.0 grams LV mass(C)sI 158.5 grams/m\S\2 SV(Teich) 71.4 ml SI(Teich) 34.5 ml/m\S\2 SV(cubed) 80.6 ml SI(cubed) 39.0 ml/m\S\2 ACS 1.6 cm LA dimension 4.3 cm asc Aorta Diam 3.1 cm LVOT diam 1.5 cm LVOT area 1.9 cm\S\2 LVAd ap4 31.7 cm\S\2 LVLd ap4 8.6 cm EDV(MOD-sp4) 95.7 ml EDV(sp4-el) 98.8 ml LVAs ap4 14.9 cm\S\2 LVLs ap4 6.5 cm ESV(MOD-sp4) 28.1 ml ESV(sp4-el) 29.3 ml EF(MOD-sp4) 70.6 % EF(sp4-el) 70.4 % LVAd ap2 31.8 cm\S\2 LVLd ap2 8.6 cm EDV(MOD-sp2) 97.0 ml EDV(sp2-el) 100.1 ml LVAs ap2 14.7 cm\S\2 LVLs ap2 6.4 cm ESV(MOD-sp2) 29.1 ml ESV(sp2-el) 28.7 ml EF(MOD-sp2) 70.0 % EF(sp2-el) 71.3 % LVLd %diff -0.87 % EDV(MOD-bp) 96.9 ml LVLs %diff -0.83 % ESV(MOD-bp) 28.2 ml EF(MOD-bp) 71.0 % SV(MOD-sp4) 67.6 ml SI(MOD-sp4) 32.7 ml/m\S\2 SV(MOD-sp2) 67.9 ml SI(MOD-sp2) 32.8 ml/m\S\2 SV(MOD-bp) 68.8 ml SI(MOD-bp) 33.2 ml/m\S\2 SV(sp4-el) 69.5 ml SI(sp4-el) 33.6 ml/m\S\2 SV(sp2-el) 71.4 ml SI(sp2-el) 34.5 ml/m\S\2 Doppler Measurements and Calculations MV E max holden 139.6 cm/sec MV A max holden 126.1 cm/sec MV E/A 1.1 MV dec time 0.19 sec Ao V2 max 153.0 cm/sec Ao max PG 9.4 mmHg Ao max PG (full) 3.4 mmHg JAKOB(V,A) 1.5 cm\S\2 JAKOB(V,D) 1.5 cm\S\2 AI max holden 351.3 cm/sec AI max PG 49.5 mmHg AI dec slope 296.2 cm/sec\S\2 AI P1/2t 347.5 msec LV V1 max PG 6.0 mmHg LV V1 max 122.0 cm/sec TR max holden 287.2 cm/sec
--- NOTE | 2016-11-18 14:12 | DIAGNOSTIC IMAGING REPORT ---
CHEST ONE VIEW PORTABLE HISTORY: Short of breath. COMPARISON: Chest 11/17/2016. FINDINGS: The heart remains mildly enlarged. Mild interstitial pulmonary edema and small bilateral pleural effusions. Bibasilar densities are also unchanged. No pneumothorax. IMPRESSION: No change in the mild interstitial pulmonary edema and small bilateral pleural effusions. Bibasilar densities favor atelectasis from the pleural effusions. Electronically signed by: Joe Bowie M.D. 11/18/2016 2:10 PM Dictated Date/Time: 11/18/2016 2:06 PM
[2016-11-18] MEDS ORDERED: LEVALBUTEROL/IPRATROPIUM NEB INH SCH (15:00)
[2016-11-18] MEDS: LEVALBUTEROL 1.25MG/0.5ML NEB INH SCH (19:11)
[2016-11-18] MEDS: IPRATROPIUM BROMIDE NEB SOLN 0.02% 2.5 ML VIAL INH SCH (19:11)
[2016-11-18] MEDS: NORTRIPTYLINE HCL 25 MG CAP PO SCH (20:40)
[2016-11-19] VITALS (15 sets, daily range): BP systolic 96–130; BP diastolic 59–82; PULSE 60–96; TEMP 36.4–37; O2SAT 62–97
[2016-11-19] MEDS: HEPARIN SOD 5000 UNIT/0.5 ML CARP SQ SCH ×3 (06:37→21:17)
[2016-11-19 06:56] LABS: BASO % 0.1 %; BASO ABS # 0.01 K/uL (0-0.2); COMPLETE YES; EOS % 2.5 %; IG% 0.2 %; LYMPH ABS # 2.26 K/uL (1.2-3.4); MEAN CELL VOLUME 96.7 fL (80-100); MEAN CORPUSCULAR HEMOGLOBIN 29.5 pg (25-34); MEAN CORPUSCULAR HGB CONC 30.5 g/dl (32-36); MEAN PLATELET VOLUME 10.9 fL (7.4-10.4); NEUT % 64.2 %; PLATELET COUNT 228 K/uL (130-400); RED BLOOD COUNT 4.24 M/uL (4.2-5.4); WHITE BLOOD COUNT 8.68 K/uL (4.8-10.8)
[2016-11-19] MEDS: LEVALBUTEROL 1.25MG/0.5ML NEB INH SCH ×3 (07:13→19:09)
[2016-11-19] MEDS: IPRATROPIUM BROMIDE NEB SOLN 0.02% 2.5 ML VIAL INH SCH ×3 (07:13→19:09)
[2016-11-19 07:29] LABS: BUN/CREATININE RATIO 15.2 (10-20); CALCIUM 8.7 mg/dl (8.5-10.1); CREATININE 0.72 mg/dl (0.60-1.20); MAGNESIUM 2.1 mg/dl (1.8-2.4); POTASSIUM 3.3 mmol/L (3.5-5.1)
[2016-11-19] MEDS: POTASSIUM CHLORIDE 20 MEQ TABCR PO SCH (08:08)
[2016-11-19] MEDS: CARVEDILOL 12.5 MG TAB PO SCH ×2 (08:08→21:17)
[2016-11-19] MEDS: LISINOPRIL 20 MG TAB PO SCH (08:09)
[2016-11-19] MEDS: ATORVASTATIN 40 MG TAB PO SCH (08:09)
[2016-11-19] MEDS: CLONIDINE HCL 0.1 MG TAB PO SCH ×2 (08:09→21:17)
[2016-11-19] MEDS: ASPIRIN 81 MG ECTAB PO SCH (08:09)
[2016-11-19] MEDS: AMLODIPINE BESYLATE 5 MG TAB PO SCH (08:09)
[2016-11-19] MEDS: MAGNESIUM OXIDE 400 MG TAB PO SCH (08:09)
[2016-11-19] MEDS: VENLAFAXINE HCL XR 150 MG CAPXR PO SCH (08:09)
[2016-11-19] MEDS: CLOPIDOGREL BISULFATE 75 MG TAB PO SCH (08:09)
[2016-11-19] MEDS: FUROSEMIDE INJ 40 MG in SYRINGE 0 ML IV SCH ×2 (08:10→16:50)
[2016-11-19] MEDS: MODAFINIL 100 MG TAB PO SCH (08:14)
--- NOTE | 2016-11-19 14:25 | Progress Note ---
Medicine Progress Note Date & Time of Visit: Nov 19, 2016 at 14:21. Subjective patient seen resting in bed, comfortable states she feels about the same as yesterday denies shortness of breath, cough, chest pain no other symptoms Objective Last 8 Hrs Date Time Temp Pulse Resp B/P Pulse Ox O2 Delivery O2 Flow Rate FiO2 11/19/16 12:19 Nasal Cannula 3.0 BiPAP 11/19/16 12:14 36.9 96 20 96/59 95 11/19/16 08:00 Nasal Cannula 3.0 BiPAP 11/19/16 07:47 36.5 62 20 130/82 92 BiPAP 11/19/16 07:13 66 95 40 11/19/16 07:13 66 16 95 BiPAP/CPAP 40.0 Physical Exam: General-oriented x 3, not in distress, speaks in sentences with no effort Eyes- anicteric Neck- no JVD, no adenopathy Lungs- distant breath sounds, no rales/wheezes Heart- regular rhythm; no murmur, normal rate Abdomen- normal bowel sounds, soft, nontender Extremities- grade 1-2 lower leg edema, no calf tenderness; peripheral pulses intact Neuro- alert, oriented x 3;no gross focal deficits Skin- warm & dry Laboratory Results: Last 24 Hours Test 11/18/16 15:11 11/19/16 06:25 Potassium Level 3.3 mmol/L 3.3 mmol/L White Blood Count 8.68 K/uL Red Blood Count 4.24 M/uL Hemoglobin 12.5 g/dL Hematocrit 41.0 % Mean Corpuscular Volume 96.7 fL Mean Corpuscular Hemoglobin 29.5 pg Mean Corpuscular Hemoglobin Concent 30.5 g/dl Platelet Count 228 K/uL Mean Platelet Volume 10.9 fL Neutrophils (%) (Auto) 64.2 % Lymphocytes (%) (Auto) 26.0 % Monocytes (%) (Auto) 7.0 % Eosinophils (%) (Auto) 2.5 % Basophils (%) (Auto) 0.1 % Neutrophils # (Auto) 5.56 K/uL Lymphocytes # (Auto) 2.26 K/uL Monocytes # (Auto) 0.61 K/uL Eosinophils # (Auto) 0.22 K/uL Basophils # (Auto) 0.01 K/uL RDW Standard Deviation 47.9 fL RDW Coefficient of Variation 13.5 % Immature Granulocyte % (Auto) 0.2 % Immature Granulocyte # (Auto) 0.02 K/uL Sodium Level 142 mmol/L Chloride Level 90 mmol/L Carbon Dioxide Level 51 mmol/L Anion Gap 1.0 mmol/L Blood Urea Nitrogen 11 mg/dl Creatinine 0.72 mg/dl Est Creatinine Clear Calc Drug Dose 100.5 ml/min Estimated GFR () 109.3 Estimated GFR (Non- 94.3 BUN/Creatinine Ratio 15.2 Random Glucose 76 mg/dl Calcium Level 8.7 mg/dl Magnesium Level 2.1 mg/dl Assessment & Plan ACUTE ON CHRONIC DIASTOLIC HEART FAILURE CHRONIC HYPOXIC/HYPERCAPNIC RESPIRATORY FAILURE Presents with worsening SOB on exertion and chest congestion, dry cough, weight gain and leg swelling CXR: Pulm vascular congestion with pleural effusions Has underlying COPD, Former smoker, sleep apnea. ? suspect obesity hypoventilation syndrome - echo: * There is moderate concentric left ventricular hypertrophy. * Left ventricular systolic function is normal. * Ejection Fraction = 65-70%. * There is moderate right ventricular hypertrophy. * The right ventricular systolic function is normal. * Diastolic dysfunction, Grade II, consistent with elevated left atrial pressure. -- from non adherence to medications, diet -- diuresing, -1L fluid balance, weight down by 4kg -- continue Lasix 40mg BID monitor i&o CHEST PAIN ACS ruled out cardiac markers negative ekg: no signs of ischemia continue Aspirin, Plavix, Statin, Carvedilol, Lisinopril appreciate Cardiology consult HYPOKALEMIA likely from diuresis - oral K ordered HTN continue carvedilol, amlodipine, lisinopril, and clonidine chlorthalidone on hold while on Lasix HX CVA, MTHFR MUTATION continue statin, ASA, and Plavix DEPRESSION, ANXIETY stable continue Effexor, Nortriptyline COPD stable change Combivent to scheduled Nebs CKD II: Stable Obesity: BMI:49.9 DVT PX SQ Heparin CODE STATUS: Full code DISPOSITION: Monitor in Tele Current Inpatient Medications: Current Inpatient Medications Medications (Trade) Dose Ordered Sig/Serjio Route Start Time Stop Time Status Last Admin Dose Admin Heparin Sodium (Porcine) (Heparin Sq 5000 Unit/0.5ml) 5,000 unit Q8 SQ 11/17/16 22:00 12/17/16 21:59 11/19/16 14:12 5,000 UNIT Acetaminophen (Tylenol Tab) 650 mg Q4H PRN PO 11/17/16 20:00 12/17/16 19:59 Ondansetron HCl (Zofran Inj) 4 mg Q6H PRN IV 11/17/16 20:00 12/17/16 19:59 Nitroglycerin 0.4 mg 0.4 mg UD PRN SL 11/17/16 20:00 12/17/16 19:59 Furosemide/Syringe (Lasix Inj/ Syringe) 4 ml @ 4 mls/min BID17 IV 11/17/16 21:00 12/17/16 20:59 11/19/16 08:10 4 MLS/MIN Alprazolam (Xanax Tab) 0.25 mg TID PRN PO 11/17/16 20:00 12/17/16 19:59 Amlodipine Besylate (Norvasc Tab) 10 mg DAILY PO 11/18/16 09:00 12/18/16 08:59 11/19/16 08:09 10 MG Aspirin (Ecotrin Tab) 81 mg DAILY PO 11/18/16 09:00 12/18/16 08:59 11/19/16 08:09 81 MG Atorvastatin Calcium (Lipitor Tab) 40 mg DAILY PO 11/18/16 09:00 12/18/16 08:59 11/19/16 08:09 40 MG Carvedilol (Coreg Tab) 12.5 mg BID PO 11/17/16 21:00 12/17/16 20:59 11/19/16 08:08 12.5 MG Clonidine HCl (Catapres Tab) 0.1 mg BID PO 11/17/16 21:00 12/17/16 20:59 11/19/16 08:09 0.1 MG Clopidogrel Bisulfate (plAVix TAB) 75 mg DAILY PO 11/18/16 09:00 12/18/16 08:59 11/19/16 08:09 75 MG Folic Acid (Folvite Tab) 1 mg DAILY PO 11/18/16 09:00 12/18/16 08:59 11/19/16 08:08 1 MG Lisinopril (Zestril Tab) 20 mg DAILY PO 11/18/16 09:00 12/18/16 08:59 11/19/16 08:09 20 MG Magnesium Oxide (Mag-Ox Tab) 400 mg DAILY PO 11/18/16 09:00 12/18/16 08:59 11/19/16 08:09 400 MG Nortriptyline HCl (Pamelor Cap) 50 mg HS PO 11/17/16 21:00 12/17/16 20:59 11/18/16 20:40 50 MG Potassium Chloride (Klor-Con Tab) 20 meq DAILY PO 11/18/16 09:00 12/18/16 08:59 11/19/16 08:08 20 MEQ Venlafaxine HCl (effeXOR EXTENDED REL CAP) 150 mg DAILY PO 11/18/16 09:00 12/18/16 08:59 11/19/16 08:09 150 MG Modafinil (proVIGIL TAB) 100 mg DAILY PO 11/18/16 09:00 12/18/16 08:59 11/19/16 08:14 100 MG Albuterol Sulfate (Ventolin 0.083% 2.5MG/3ML Neb) 2.5 mg Q6R PRN INH 11/17/16 20:15 12/17/16 20:14 Ipratropium [place] (Atrovent 0.02% 0.5MG/2.5ML Neb) 0.5 mg Q6RWA INH 11/18/16 15:00 12/18/16 14:59 11/19/16 07:13 0.5 MG Levalbuterol (Xopenex 1.25MG/ 0.5ML Neb) 1.25 mg Q6RWA INH 11/18/16 15:00 12/18/16 14:59 11/19/16 07:13 1.25 MG Potassium Chloride (Klor-Con Tab) 40 meq ONE PO 11/19/16 14:15 12/19/16 14:14 UNV
[2016-11-19] MEDS ORDERED: POTASSIUM CHLORIDE 20 MEQ TABCR PO ONE (15:00)
--- NOTE | 2016-11-19 15:37 | PROGRESS NOTE ---
DATE: 11/19/2016 FOLLOWUP VISIT SUBJECTIVE: The patient is a morbidly obese female with pickwickian syndrome and hypoventilation syndrome due to obesity. The patient is more alert today. She has taken off several kilograms of fluid and is doing better. OBJECTIVE: VITAL SIGNS: Blood pressure is 100/60, pulse is regular at 96 beats per minute. She is afebrile. HEENT: She is normocephalic. Pupils are equal and reactive to light. Mucous membranes are moist. NECK: The neck is supple and nontender. There is no JVD. RESPIRATORY: Breath sounds are equal bilaterally. CARDIOVASCULAR: Heart has a regular rhythm. Normal S1, S2. No S3, S4. No cardiac rubs or murmurs. GASTROINTESTINAL: Abdomen is soft, nontender without organomegaly. EXTREMITIES: Lower extremities have edema. NEUROLOGIC: Grossly intact. SKIN: Warm to touch. LYMPH NODES: Negative to palpation. LABORATORY DATA: Hemoglobin is 12.5, potassium is 3.3, creatinine 0.72, carbon dioxide level was 51. IMPRESSION: 1. Morbid obesity. 2. Obesity hypoventilation syndrome. 3. Pickwickian. RECOMMENDATIONS: The patient is doing better now that she is back on her diuretics and also utilizing CPAP for sleep. From a cardiac standpoint, she is stable, and I recommend no additional cardiac testing.
[2016-11-19] MEDS: NORTRIPTYLINE HCL 25 MG CAP PO SCH (21:17)
[2016-11-20] VITALS (14 sets, daily range): BP systolic 95–118; BP diastolic 60–71; PULSE 56–78; TEMP 36.5–37; O2SAT 90–93
[2016-11-20] MEDS: HEPARIN SOD 5000 UNIT/0.5 ML CARP SQ SCH ×3 (05:37→21:06)
[2016-11-20 05:46] LABS: BASO % 0.2 %; BASO ABS # 0.02 K/uL (0-0.2); COMPLETE YES; EOS % 3.2 %; HEMATOCRIT 41.6 % (37-47); IG% 0.2 %; LYMPH % 34.5 %; LYMPH ABS # 3.05 K/uL (1.2-3.4); MEAN CELL VOLUME 96.5 fL (80-100); MEAN CORPUSCULAR HEMOGLOBIN 29.5 pg (25-34); MEAN CORPUSCULAR HGB CONC 30.5 g/dl (32-36); NEUT % 54.9 %; PLATELET COUNT 222 K/uL (130-400); RED BLOOD COUNT 4.31 M/uL (4.2-5.4); WHITE BLOOD COUNT 8.84 K/uL (4.8-10.8)
[2016-11-20 06:18] LABS: BUN/CREATININE RATIO 17.5 (10-20); CREATININE 0.91 mg/dl (0.60-1.20); MAGNESIUM 2.1 mg/dl (1.8-2.4); POTASSIUM 3.8 mmol/L (3.5-5.1)
[2016-11-20] MEDS: LEVALBUTEROL 1.25MG/0.5ML NEB INH SCH ×3 (07:45→20:20)
[2016-11-20] MEDS: IPRATROPIUM BROMIDE NEB SOLN 0.02% 2.5 ML VIAL INH SCH ×3 (07:45→20:20)
[2016-11-20] MEDS: CLONIDINE HCL 0.1 MG TAB PO SCH (08:01)
[2016-11-20] MEDS: FUROSEMIDE INJ 40 MG in SYRINGE 0 ML IV SCH ×2 (08:01→17:00)
[2016-11-20] MEDS: CARVEDILOL 12.5 MG TAB PO SCH ×2 (08:01→20:56)
[2016-11-20] MEDS: AMLODIPINE BESYLATE 5 MG TAB PO SCH (08:02)
[2016-11-20] MEDS: MAGNESIUM OXIDE 400 MG TAB PO SCH (08:02)
[2016-11-20] MEDS: ATORVASTATIN 40 MG TAB PO SCH (08:02)
[2016-11-20] MEDS: VENLAFAXINE HCL XR 150 MG CAPXR PO SCH (08:02)
[2016-11-20] MEDS: ASPIRIN 81 MG ECTAB PO SCH (08:02)
[2016-11-20] MEDS: LISINOPRIL 20 MG TAB PO SCH (08:02)
[2016-11-20] MEDS: CLOPIDOGREL BISULFATE 75 MG TAB PO SCH (08:02)
[2016-11-20] MEDS: POTASSIUM CHLORIDE 20 MEQ TABCR PO SCH (08:02)
[2016-11-20] MEDS: MODAFINIL 100 MG TAB PO SCH (08:06)
--- NOTE | 2016-11-20 08:44 | Clinical Documentation Query ---
CLINICAL DOCUMENTATION QUERY Dr. RODRIGUEZ, Please clarify the discrepancy in the clinical record. In your clinical opinion is this patient being managed for: ( ) Acute and chronic respiratory failure with hypoxia and hypercapnea ( X ) Chronic respiratory failure with hypoxia and hypercapnea ( ) Other explanation of clinical findings (Please Explain) ( ) Unable to determine (Please Define) ( ) Need to Discuss ( ) Not Agree The medical record reflects the following clinical findings, treatment, and risk factors. Clinical Indicators: H/P indicates pt with hypoxic/hypercapnic respiratory failure and oxygen dependence (THIS WILL CODE TO ACUTE RESPIRATORY FAILURE). Further progress notes indicate chronic hypoxic/hypercapnic respiratory failure. Treatment: BIPAP, tele, IV lasix bid, daily wts and I/O Risk Factors: morbid obesity, acute diastolic CHF, OHS Please clarify and document your clinical opinion in the progress notes and discharge summary. Terms such as "probable", "suspected", "likely", "questionable", "possible", or "still to be ruled out" are acceptable. IF IN AGREEMENT, YOU MUST DOCUMENT ABOVE DIAGNOSTIC STATEMENT IN DAILY PROGRESS NOTES AND DISCHARGE SUMMARY. This document is not part of the patient's record. Thank You, Ruth Sigala, RN [phone]
--- NOTE | 2016-11-20 18:08 | Progress Note ---
Medicine Progress Note Date & Time of Visit: November 20, 2016 at 18:04. Subjective patient sitting on bedside chair, having dinner feels somewhat weak today denies dyspnea, cough no fever/chills no dizziness, chest pain, palpitations Objective Last 8 Hrs Date Time Temp Pulse Resp B/P Pulse Ox O2 Delivery O2 Flow Rate FiO2 11/20/16 15:31 36.8 61 16 95/62 91 4.0 11/20/16 13:53 78 16 93 Nasal Cannula 5.0 11/20/16 12:00 Nasal Cannula 4.0 11/20/16 11:41 37.0 65 22 103/71 92 4.0 Physical Exam: General-oriented x 3, not in distress, speaks in sentences with no effort Neck- no JVD Lungs- distant breath sounds, good air entry, no rales/wheezes Heart- regular rhythm; no murmur, normal rate Abdomen- normal bowel sounds, soft, nontender Extremities- mild lower leg edema, no calf tenderness; peripheral pulses intact Neuro- alert, oriented x 3;no gross focal deficits Skin- warm & dry Laboratory Results: Last 24 Hours Test 11/20/16 05:15 White Blood Count 8.84 K/uL Red Blood Count 4.31 M/uL Hemoglobin 12.7 g/dL Hematocrit 41.6 % Mean Corpuscular Volume 96.5 fL Mean Corpuscular Hemoglobin 29.5 pg Mean Corpuscular Hemoglobin Concent 30.5 g/dl Platelet Count 222 K/uL Mean Platelet Volume 11.0 fL Neutrophils (%) (Auto) 54.9 % Lymphocytes (%) (Auto) 34.5 % Monocytes (%) (Auto) 7.0 % Eosinophils (%) (Auto) 3.2 % Basophils (%) (Auto) 0.2 % Neutrophils # (Auto) 4.85 K/uL Lymphocytes # (Auto) 3.05 K/uL Monocytes # (Auto) 0.62 K/uL Eosinophils # (Auto) 0.28 K/uL Basophils # (Auto) 0.02 K/uL RDW Standard Deviation 48.3 fL RDW Coefficient of Variation 13.6 % Immature Granulocyte % (Auto) 0.2 % Immature Granulocyte # (Auto) 0.02 K/uL Sodium Level 142 mmol/L Potassium Level 3.8 mmol/L Chloride Level 92 mmol/L Carbon Dioxide Level 53 mmol/L Anion Gap -3.0 mmol/L Blood Urea Nitrogen 16 mg/dl Creatinine 0.91 mg/dl Est Creatinine Clear Calc Drug Dose 79.5 ml/min Estimated GFR () 82.3 Estimated GFR (Non- 71.0 BUN/Creatinine Ratio 17.5 Random Glucose 82 mg/dl Calcium Level 9.0 mg/dl Magnesium Level 2.1 mg/dl Assessment & Plan ACUTE ON CHRONIC DIASTOLIC HEART FAILURE CHRONIC HYPOXIC/HYPERCAPNIC RESPIRATORY FAILURE Presents with worsening SOB on exertion and chest congestion, dry cough, weight gain and leg swelling CXR: Pulm vascular congestion with pleural effusions Has underlying COPD, Former smoker, sleep apnea. ? suspect obesity hypoventilation syndrome - echo: * There is moderate concentric left ventricular hypertrophy. * Left ventricular systolic function is normal. * Ejection Fraction = 65-70%. * There is moderate right ventricular hypertrophy. * The right ventricular systolic function is normal. * Diastolic dysfunction, Grade II, consistent with elevated left atrial pressure. -- from non adherence to medications, diet -- diuresing, -1L fluid balance, weight down by 4kg -- significantly improved leg edema HOLD lasix now usually on Chlorthalidone PO CHEST PAIN ACS ruled out cardiac markers negative ekg: no signs of ischemia continue Aspirin, Plavix, Statin, Carvedilol, Lisinopril appreciate Cardiology consult HTN BP on the low side today Hold amlodipine, lisinopril, and clonidine continue Carvedilol with holding parameters chlorthalidone on hold while on Lasix HX CVA, MTHFR MUTATION continue statin, ASA, and Plavix DEPRESSION, ANXIETY stable continue Effexor, Nortriptyline COPD stable changed Combivent to scheduled Nebs CKD II: Stable Obesity: BMI:49.9 DVT PX SQ Heparin CODE STATUS: Full code DISPOSITION: Monitor in Tele needs PT eval patient agreeable to go to Rehab if necessary Current Inpatient Medications: Current Inpatient Medications Medications (Trade) Dose Ordered Sig/Serjio Route Start Time Stop Time Status Last Admin Dose Admin Heparin Sodium (Porcine) (Heparin Sq 5000 Unit/0.5ml) 5,000 unit Q8 SQ 11/17/16 22:00 12/17/16 21:59 11/20/16 14:07 5,000 UNIT Acetaminophen (Tylenol Tab) 650 mg Q4H PRN PO 11/17/16 20:00 12/17/16 19:59 Ondansetron HCl (Zofran Inj) 4 mg Q6H PRN IV 11/17/16 20:00 12/17/16 19:59 Nitroglycerin 0.4 mg 0.4 mg UD PRN SL 11/17/16 20:00 12/17/16 19:59 Furosemide/Syringe (Lasix Inj/ Syringe) 4 ml @ 4 mls/min BID17 IV 11/17/16 21:00 12/17/16 20:59 11/20/16 08:01 4 MLS/MIN Alprazolam (Xanax Tab) 0.25 mg TID PRN PO 11/17/16 20:00 12/17/16 19:59 Amlodipine Besylate (Norvasc Tab) 10 mg DAILY PO 11/18/16 09:00 12/18/16 08:59 11/20/16 08:02 10 MG Aspirin (Ecotrin Tab) 81 mg DAILY PO 11/18/16 09:00 12/18/16 08:59 11/20/16 08:02 81 MG Atorvastatin Calcium (Lipitor Tab) 40 mg DAILY PO 11/18/16 09:00 12/18/16 08:59 11/20/16 08:02 40 MG Carvedilol (Coreg Tab) 12.5 mg BID PO 11/17/16 21:00 12/17/16 20:59 11/20/16 08:01 12.5 MG Clonidine HCl (Catapres Tab) 0.1 mg BID PO 11/17/16 21:00 12/17/16 20:59 11/20/16 08:01 0.1 MG Clopidogrel Bisulfate (plAVix TAB) 75 mg DAILY PO 11/18/16 09:00 12/18/16 08:59 11/20/16 08:02 75 MG Folic Acid (Folvite Tab) 1 mg DAILY PO 11/18/16 09:00 12/18/16 08:59 11/20/16 08:02 1 MG Lisinopril (Zestril Tab) 20 mg DAILY PO 11/18/16 09:00 12/18/16 08:59 11/20/16 08:02 20 MG Magnesium Oxide (Mag-Ox Tab) 400 mg DAILY PO 11/18/16 09:00 12/18/16 08:59 11/20/16 08:02 400 MG Nortriptyline HCl (Pamelor Cap) 50 mg HS PO 11/17/16 21:00 12/17/16 20:59 11/19/16 21:17 50 MG Potassium Chloride (Klor-Con Tab) 20 meq DAILY PO 11/18/16 09:00 12/18/16 08:59 11/20/16 08:02 20 MEQ Venlafaxine HCl (effeXOR EXTENDED REL CAP) 150 mg DAILY PO 11/18/16 09:00 12/18/16 08:59 11/20/16 08:02 150 MG Modafinil (proVIGIL TAB) 100 mg DAILY PO 11/18/16 09:00 12/18/16 08:59 11/20/16 08:06 100 MG Albuterol Sulfate (Ventolin 0.083% 2.5MG/3ML Neb) 2.5 mg Q6R PRN INH 11/17/16 20:15 12/17/16 20:14 Ipratropium [place] (Atrovent 0.02% 0.5MG/2.5ML Neb) 0.5 mg Q6RWA INH 11/18/16 15:00 12/18/16 14:59 11/20/16 13:53 0.5 MG Levalbuterol (Xopenex 1.25MG/ 0.5ML Neb) 1.25 mg Q6RWA INH 11/18/16 15:00 12/18/16 14:59 11/20/16 13:53 1.25 MG
[2016-11-20] MEDS: NORTRIPTYLINE HCL 25 MG CAP PO SCH (20:58)
[2016-11-21] VITALS (12 sets, daily range): BP systolic 86–109; BP diastolic 55–74; PULSE 58–109; TEMP 36.3–36.9; O2SAT 90–99
[2016-11-21 00:55] LABS: URINE APPEARANCE CLOUDY (CLEAR); URINE COLOR DK YELLOW; URINE EPITHELIAL CELL AUTO 20-30 /lpf (0-5); URINE NITRITE POS (NEG); URINE SPECIFIC GRAVITY 1.022 (1.000-1.030); UROBILINOGEN NEG (NEG)
[2016-11-21 01:31] LABS: MANUAL MICROSCOPIC REQUIRED? NO; REVIEW REQ? YES; URINE BILIRUBIN NEG (NEG)
[2016-11-21] MEDS ORDERED: NURSING VERBAL MED ORDER ONE (01:45)
[2016-11-21] MEDS ORDERED: SODIUM CHLORIDE 0.9% 500ML 250 ML IV STA (02:10)
[2016-11-21] MEDS: CEFTRIAXONE SOD INJ 1 GM in DEXTROSE 5% ADD-VANTAGE 50ML 50 ML IV SCH (02:28)
[2016-11-21 07:00] LABS: BUN/CREATININE RATIO 24.3 (10-20); CREATININE 1.1 mg/dl (0.60-1.20); MAGNESIUM 2.3 mg/dl (1.8-2.4); POTASSIUM 3.7 mmol/L (3.5-5.1)
[2016-11-21] MEDS: IPRATROPIUM BROMIDE NEB SOLN 0.02% 2.5 ML VIAL INH SCH ×3 (07:08→19:09)
[2016-11-21] MEDS: LEVALBUTEROL 1.25MG/0.5ML NEB INH SCH ×3 (07:08→19:09)
[2016-11-21] MEDS: VENLAFAXINE HCL XR 150 MG CAPXR PO SCH (07:50)
[2016-11-21] MEDS: MAGNESIUM OXIDE 400 MG TAB PO SCH (07:50)
[2016-11-21] MEDS: POTASSIUM CHLORIDE 20 MEQ TABCR PO SCH (07:50)
[2016-11-21] MEDS: ASPIRIN 81 MG ECTAB PO SCH (07:50)
[2016-11-21] MEDS: ATORVASTATIN 40 MG TAB PO SCH (07:50)
[2016-11-21] MEDS: CARVEDILOL 12.5 MG TAB PO SCH ×2 (07:50→21:00)
[2016-11-21] MEDS: MODAFINIL 100 MG TAB PO SCH (07:51)
[2016-11-21] MEDS: CLOPIDOGREL BISULFATE 75 MG TAB PO SCH (07:51)
--- NOTE | 2016-11-21 10:46 | CARDIOLOGY PROGRESS NOTE ---
DATE: 11/21/2016 SUBJECTIVE: The patient is seen and examined at the bedside. She is currently participating in occupational therapy. Denies chest pain or unusual shortness of breath. She received intravenous fluid last night due to transient hypotension. Her Lasix has been discontinued. The patient admits to noncompliance with chlorthalidone prior to admission. She received intravenous Lasix with significant diuresis and improvement of edema during hospitalization. Currently, utilizes supplemental oxygen; however, denies use of CPAP or BIPAP at home. She offers no other complaints at this time. REVIEW OF SYSTEMS: The pertinent positives noted above and a 4-system review including cardiovascular, gastroenterologic, neurologic, and pulmonary is otherwise negative. MEDICATIONS: Reviewed via EMR. Please see list for details. Echocardiogram reveals moderate concentric left ventricular and right ventricular hypertrophy with grade 2 diastolic dysfunction and normal left ventricular systolic function. LABORATORY DATA: Sodium is 140, potassium 3.7, chloride 92, CO2 is 50, BUN is 27, and creatinine is 1.10. PHYSICAL EXAMINATION: VITAL SIGNS: Temperature is 36.3 degrees centigrade, pulse 68 beats per minute and regular, respiratory rate is 22 breaths per minute, blood pressure 107/73 and SaO2 is 91% on 4 liters nasal cannula. GENERAL: NAD, morbid obesity, awake, alert and oriented. HEENT: Her mucous membranes are moist. No scleral icterus. Conjunctivae are pink. NECK: Supple. No carotid bruit. HEART: Regular with a normal S1 and S2. There is no murmur, rub, or gallop. PULMONARY EXAM: Demonstrates scant crackles at the bases bilaterally. No rhonchi or wheeze. Effort is poor. ABDOMEN: Obese and nontender. No rebound or guarding. Normal bowel sounds. EXTREMITIES: Warm and dry with trace bilateral pedal edema and stasis changes. NEUROLOGIC EXAM: Demonstrates no focal deficit. FINAL IMPRESSION: 1. Acute on chronic hypoxic and hypercapnic respiratory failure secondary to obesity hypoventilation syndrome and acute on chronic diastolic heart failure related to noncompliance with diuretic therapy. The patient's volume status has markedly improved and appears mildly intravascularly depleted at this time. Her intravenous Lasix has been held and she has received gentle IV hydration last evening. 2. Atypical chest pain -- resolved. 3. Hypotension -- resolved with borderline hypotension after intravenous diuretic therapy. 4. Chronic obstructive pulmonary disease. 5. Morbid obesity. PLAN AND RECOMMENDATIONS: Intravenous diuretic therapy will remain on hold. We will restart chlorthalidone possibly tomorrow pending review of a.m. labs. Recommend sleep/pulmonary medicine evaluation to consider CPAP and/or BiPAP therapy. Continue supplemental oxygen for the time being. Antibiotics per internal medicine service. No further cardiac testing at this time.
--- NOTE | 2016-11-21 19:04 | Progress Note ---
Internal Med Progress Note Date of Service: November 21, 2016. Provider Documentation: SUBJECTIVE: mentions that SOB has improved no orthopnea on 4 L 02 chronically , ordered for CPAP at night ( does not have CPAP at home ) does not recall having sleep study done in past had low urine output last night , improved after IV fluid bolus ~250 ml ordered to D/C rizzo pt denies of any urinary symptom no fever or chills no orthopnea OBJECTIVE: Vital Signs-as noted below Exam: General-morbid obesity , no apparent sign of distress Eyes-sclera non icteric ENT-NAD Lungs-diminished , scattered wheeze Heart-regular S1/S2 Abdomen-soft, non tender Extremities-+1-2 bilat lower ext edema Neuro-AAO x3, no focal deficit Lab data as noted below. ASSESSMENT & PLAN: ACUTE ON CHRONIC DIASTOLIC HEART FAILURE CHRONIC HYPOXIC/HYPERCAPNIC RESPIRATORY FAILURE Presents with worsening SOB on exertion and chest congestion, dry cough, weight gain and leg swelling CXR: Pulm vascular congestion with pleural effusions Has underlying COPD, Former smoker, sleep apnea. ? suspect obesity hypoventilation syndrome - echo: * There is moderate concentric left ventricular hypertrophy. * Left ventricular systolic function is normal. * Ejection Fraction = 65-70%. * There is moderate right ventricular hypertrophy. * The right ventricular systolic function is normal. * Diastolic dysfunction, Grade II, consistent with elevated left atrial pressure. -- from non adherence to medications, diet -- diuresing, -1L fluid balance, weight down by 4kg -- significantly improved leg edema Lasix on hold for low urine out put /possible intravascular vol depletion urine out put improved after IV fluid bolus appreciate input form Cardiology resume Chlorthalidone PO tomorrow ordered for nocturnal pulse oximetry pulmonology eval requested will need to have out pt sleep medicine followup and sleep study eval POSSIBLE UTI : UA grossly positive with associated hematuria started on Rocephin urine culture ordered D/C Rizzo sub q heparin D/jamaal for hematuria CHEST PAIN no symptom now, possibly due to above ACS ruled out cardiac markers negative ekg: no signs of ischemia continue Aspirin, Plavix, Statin, Carvedilol, Lisinopril appreciate Cardiology consult HTN BP on the low side today Hold amlodipine, lisinopril, and clonidine continue Carvedilol with holding parameters chlorthalidone on hold while on Lasix HX CVA, MTHFR MUTATION continue statin, ASA, and Plavix DEPRESSION, ANXIETY stable continue Effexor, Nortriptyline COPD stable cont PRN neb tx CKD II: Stable Obesity: BMI:49.9 DVT PX high risk for morbid obesity limited mobility SQ Heparin on hold for hematuria PT/OT eval requested pt is encouraged to be OOB as much as possible CODE STATUS: Full code DISPOSITION: PT eval ordered patient agreeable to go to Rehab if necessary Vital Signs: Date Time Temp Pulse Resp B/P Pulse Ox O2 Delivery O2 Flow Rate FiO2 11/22/16 14:07 70 18 94 Nasal Cannula 4.0 11/22/16 11:55 Nasal Cannula 4.0 11/22/16 11:47 36.7 66 18 115/82 98 4.0 11/22/16 08:00 Nasal Cannula 4.0 11/22/16 07:20 36.2 62 18 103/74 97 Room Air 11/22/16 07:12 71 18 97 Nasal Cannula 4.0 11/22/16 05:24 36.7 67 20 108/72 93 Nasal Cannula 4.0 11/22/16 04:00 Nasal Cannula 4.0 11/22/16 04:00 Nasal Cannula 4.0 11/21/16 23:59 Nasal Cannula 4.0 11/21/16 23:13 36.6 65 16 99/67 93 Nasal Cannula 4.0 11/21/16 20:00 93 Nasal Cannula 4.0 11/21/16 19:51 36.5 62 16 92/55 99 Nasal Cannula 4.0 11/21/16 19:09 76 18 92 Nasal Cannula 3.0 11/21/16 16:42 58 109/74 11/21/16 16:00 93 Nasal Cannula 4.0 11/21/16 15:51 36.5 58 20 86/58 93 Nasal Cannula 3.0 Lab Results: Results Past 24 Hours Test 11/22/16 05:39 Range/Units Sodium Level 141 136-145 mmol/L Potassium Level 4.2 3.5-5.1 mmol/L Chloride Level 94 98-107 mmol/L Carbon Dioxide Level 45 21-32 mmol/L Anion Gap 2.0 3-11 mmol/L Blood Urea Nitrogen 31 7-18 mg/dl Creatinine 1.20 0.60-1.20 mg/dl Est Creatinine Clear Calc Drug Dose 59.7 ml/min Estimated GFR () 58.9 Estimated GFR (Non- 50.8 BUN/Creatinine Ratio 25.7 10-20 Random Glucose 79 70-99 mg/dl Calcium Level 9.2 8.5-10.1 mg/dl Magnesium Level 2.5 1.8-2.4 mg/dl
[2016-11-21] MEDS: NORTRIPTYLINE HCL 25 MG CAP PO SCH (21:20)
[2016-11-22] VITALS (7 sets, daily range): BP systolic 103–129; BP diastolic 72–82; PULSE 62–88; TEMP 36.2–36.7; O2SAT 93–100
[2016-11-22] MEDS: CEFTRIAXONE SOD INJ 1 GM in DEXTROSE 5% ADD-VANTAGE 50ML 50 ML IV SCH (01:31)
[2016-11-22 06:47] LABS: BUN/CREATININE RATIO 25.7 (10-20); CALCIUM 9.2 mg/dl (8.5-10.1); CREATININE 1.2 mg/dl (0.60-1.20); MAGNESIUM 2.5 mg/dl (1.8-2.4); POTASSIUM 4.2 mmol/L (3.5-5.1)
[2016-11-22] MEDS: IPRATROPIUM BROMIDE NEB SOLN 0.02% 2.5 ML VIAL INH SCH ×3 (07:12→20:14)
[2016-11-22] MEDS: LEVALBUTEROL 1.25MG/0.5ML NEB INH SCH ×3 (07:12→20:14)
[2016-11-22] MEDS: MODAFINIL 100 MG TAB PO SCH (07:54)
[2016-11-22] MEDS: ATORVASTATIN 40 MG TAB PO SCH (07:54)
[2016-11-22] MEDS: VENLAFAXINE HCL XR 150 MG CAPXR PO SCH (07:54)
[2016-11-22] MEDS: MAGNESIUM OXIDE 400 MG TAB PO SCH (07:54)
[2016-11-22] MEDS: CARVEDILOL 12.5 MG TAB PO SCH ×2 (07:54→21:19)
[2016-11-22] MEDS: ASPIRIN 81 MG ECTAB PO SCH (07:54)
[2016-11-22] MEDS: CLOPIDOGREL BISULFATE 75 MG TAB PO SCH (07:54)
[2016-11-22] MEDS: POTASSIUM CHLORIDE 20 MEQ TABCR PO SCH (07:54)
--- NOTE | 2016-11-22 08:17 | PULMONARY CONSULTATION ---
DATE OF CONSULTATION: 11/22/2016 The patient is a 56-year-old female with known chronic obstructive lung disease, was admitted to the hospital on 11/17/2016 with shortness of breath, history of sleep apnea, although she does not wear any CPAP at home. She developed worsening shortness of breath over a 2-week period of time, had difficulty with even going to the bathroom. She remains very sedentary at home, states she really cannot go out shopping, and is able to do some of her chores at home without difficulty. She does live alone, apparently has some children who are close by. Associated with this was a significant weight gain with severe swelling in the lower extremities. She has not been using her medications appropriately at home. She is generally on oxygen at 4 liters per minute and presented to the Emergency Room, was seen by Dr. Elliot Nixon with shortness of breath. Dr. Engle has asked us to evaluate the patient from a pulmonary standpoint. She denied cough, significant sputum production, or orthopnea, and remains using tobacco. She states she smokes about 8-10 cigarettes on a daily basis, has a heavy history of tobacco use in the past and quit several times. Her oxygen saturation was 97% on room air at the time of admission at 1544, blood pressure 142/84, respiratory rate was 24. She did have a venous blood gas that showed significant hypercapnia as well. She was placed on BiPAP for the hypercapnia and used that last night and states she feels considerably improved now. She has also had a fairly good diuresis with a weight from 116.7 down to 110 kilograms. Travel history and environmental histories have been unremarkable. PAST MEDICAL HISTORY: Significant for respiratory failure. She was cared for by Dr. Armando Mejia and had intubation last year for respiratory failure and even had a bronchoscopy. I do not see any nodes suggesting any endobronchial lesions, but the cultures were all unremarkable at that time. She never did start BiPAP or CPAP at home. She carries a history of diastolic heart failure, although an echocardiogram in 2005 actually looked fairly good with minimal aortic sclerosis. She carries a history of chronic kidney disease, hyperlipidemia, hypertension, massive obesity, MTHFR mutation. PAST SURGICAL HISTORY: Positive for tubal ligation, cholecystectomy, and hysterectomy. FAMILY HISTORY: Mother at age 44 from what sounds like a stroke and maybe a cerebral aneurysm. Father at 74 from diabetes and coronary artery disease. One brother had multiple sclerosis. One brother had heart failure. SOCIAL HISTORY: She has a [id number] history of cigarette smoking, quit several years ago and then restarted about a year ago. She is not an alcohol user. 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 ALLERGIES: NOTED TO PENICILLIN. SHE IS NOT SURE OF THE REACTION. MEDICATIONS: Noted. She has not been using any inhalers at home that she can remember. She does wear oxygen, states sometimes she will fall asleep without it. She also has significant symptoms of sleep disordered breathing with noted loud snoring by her family members and profound hypersomnolence during the day, never feels well rested, occasionally will have some morning headaches, does not dream, and awakens at least 3-4 times a night for unknown reasons. This is worse when she develops worsening edema. PHYSICAL EXAMINATION: VITAL SIGNS: Blood pressure 108/72, oxygen saturation 93% on 4 liters, and she is afebrile. Her weight is 110 kilograms. When she was here last year in May, her weight was 111.6 kilograms, so she may be back to her standard weight. BiPAP machine is by her bedside, she states she did wear it last night. Damon catheter was removed on 11/21/2016 according to the nurses' notes. HEENT: Reveals a very small posterior pharynx with a low lying soft palate, small uvula, large tongue, normal mandible with slight mandibular recession. TM joints unremarkable. No adenopathy noted. There is no neck vein distention or HJR. Thyroid nonpalpable. Trachea appears to be in the midline. CHEST: Shows good expansion with deep inspiration. She is massively obese. HEART: Regular rate and rhythm. Heart sounds are distant. No murmurs are heard. I thought the second heart sound was normal. LUNGS: Reveal decreased breath sounds bilaterally, but I do not detect any wheezing or crackles. ABDOMEN: Soft, massively obese, nontender. EXTREMITIES: She has no cyanosis, clubbing. She has SCDs in place. There is edema of the lower extremities with +1 edema of her feet. Electrocardiogram revealed normal sinus rhythm with some baseline artifact and low voltage. The chest x-ray revealed some cardiomegaly with basilar densities consistent with some mild atelectasis. There is some blunting of the CP angles consistent with perhaps some small pleural effusions as well. LABORATORY DATA: White count is 8.8, hemoglobin 12.7, hematocrit 42%, platelet count 222,000. Venous blood gas revealed pH 7.36, pCO2 of 87, pO2 of 52. Her CO2 is elevated at 45 and electrolytes show 53 on 11/20/2016 with a BUN of 31, creatinine of 1.2. BNP was 3045. Troponin is unremarkable. Liver function studies were normal. Her BNP was 3729 at the time of admission with CO2 of 47. Urinalysis revealed some red cells and white cells, apparently that was a Damon catheter specimen. Coagulation profile is unremarkable. ASSESSMENT AND PLAN: 1. Respiratory failure secondary to chronic obstructive lung disease from smoking. It is also complicated by chronic hypoventilation and probable significant obstructive sleep apnea related to massive obesity and tobacco use, small posterior pharynx. 2. Chronic obstructive pulmonary disease with exacerbation. 3. Obstructive sleep apnea. 4. Probable pulmonary hypertension. She has right ventricular hypertrophy by echocardiogram done on 11/18/2016 and that is new compared to the one from several years ago. RECOMMENDATIONS: 1. Dietary evaluation for weight reduction. 2. I would place her on BiPAP with inspiratory positive airway pressure of 16, expiratory positive airway pressure of 6, with an S/T rate of 12. Follow her electrolytes, especially the CO2. 3. Decrease the oxygen to 3 liters per minute, keep her saturation at 88-90% in order to prevent worsening shunt and hypercapnia. 4. Continue on the present antimicrobial agents, although I do not think there is an infection here. She did have mild leukocytosis. I would avoid steroids as possible. I would also recommend checking a TSH. She can be continued on the Provigil 100 mg daily and I would use the bronchodilators in the form of Combivent 1 puff 4 times a day or DuoNeb 1 inhalation 4 times a day and q. 4 hours p.r.n. Good DVT prophylaxis would be recommended as well, and she should be continued on anticoagulants and SCDs. Thanks for asking me to evaluate Ms. Cook. She is going to follow up with Dr. Linares as an outpatient and she should be followed very carefully, will probably need a polysomnogram as an outpatient as well.
[2016-11-22] MEDS ORDERED: NURSING VERBAL MED ORDER ONE (10:30)
[2016-11-22] MEDS: POLYETHYLENE (MIRALAX) 17 GM PACK PO SCH ×2 (12:44→21:00)
[2016-11-22] MEDS ORDERED: CHLORTHALIDONE 25 MG TAB PO ONE (15:00)
[2016-11-22] MEDS ORDERED: ALPR0.25 PO (15:04)
--- NOTE | 2016-11-22 15:15 | Discharge Instructions ---
Discharge Instructions Date of Service November 22, 2016. Admission Reason for Admission: SOB Discharge Discharge Diagnosis / Problem: ACUTE ON CHRONIC HYPOXEMIC RESPIRATORY FAILUIRE/ DIASTOLIC CHF /MADONNA /UTI Discharge Goals Goal(s): Decrease discomfort, Increase independence, Improve disease control, Diagnostic testing Activity Recommendations Activity Level: Assistance Required Therapies: Physical Therapy, Occupational Therapy . Additional Information Patient informed of condition: Yes Advance Directives: No DNR: No Level of Care: Skilled Communicable Disease: No Prognosis: Stable Oxygen at (LPM): 3 L VIA NASAL CANULA CONT -KEEP SPO2 BETWEEN 88-90 % Damon Catheter: No Instructions / Follow-Up Instructions / Follow-Up FOLLOW UP WITH FAMILY PHYSICIAN DR FIGUEROA AFTER DISCHARGE FORM SANJANA GARCIA CONTINUE TO USE BIPAP AT NIGHT TIME WILL NEED FOLLOW UP WITH SLEEP MEDICINE AND OUT PATIENT SLEEP STUDY FOR INSURANCE AUTHORIZATION OF CPAP/BIPAP AT HOME Current Hospital Diet Patient's current hospital diet: Low Sodium Diet (2gm Na), AHA Diet (Heart Healthy) Discharge Diet Recommended Diet: AHA Diet (Heart Healthy) Fluid Restriction: 1500 ml (6 cups) Pending Studies Studies pending at discharge: yes List of pending studies: BASIC METABOLIC PANEL EVERY WEEK TO ASSESS CO2 LEVEL Medical Emergencies . Who to Call and When: Medical Emergencies: If at any time you feel your situation is an emergency, please call 911 immediately. . Non-Emergent Contact Non-Emergency issues call your: Primary Care Provider . . "Provider Documentation" section prepared by Shruthi Engle. . Complaint Coordinator Recommendations Complaint Coordinator Recommendations: PULMONOLOGY RECOMMENDATION : 1. pt will need to continue on Bipap at night with positive inspiratory pressure of 16 /expiratory pressure or 6 with S/T rate 12 2. follow electrolytes -CO2 level /basic metabolic panel weekly 3. O2 3 L via nasal canula , with goal saturation 88-90 % 4. Combivent INH 1 puff 4 times daily 5. DuoNeb tx INH 4 times daily 6.Will need out patient sleep study Core Measure Problem Core Measures: None
[2016-11-22] MEDS: HEPARIN SOD 5000 UNIT/0.5 ML CARP SQ SCH ×2 (15:51→21:22)
--- NOTE | 2016-11-22 16:34 | Cardiology Follow-Up ---
Subjective General Date of Service: November 22, 2016. Chief Complaint: follow up shortness of breath Pt evaluation today including: conversation w/ patient, physical exam History of Present Illness The patient is a 56 year old female seen in follow up. She states she feels subjectively improved. Allergies Coded Allergies: Penicillins (Verified Allergy, Unknown, 06/21/16) Social History Smoking Status: Former Smoker Hx Tobacco Use In Past Year?: Yes Hx Alcohol Use - Type And Amou: No Hx Substance Use - Type And Am: No Problem List Medical Problems: (1) Acute respiratory failure with hypoxia and hypercarbia Status: Acute (2) Dyspnea Status: Acute (3) Pleural effusion Status: Acute Physical Exam Vital Signs Last Vital Signs Documentation Date Time Temp Pulse Resp B/P Pulse Ox O2 Delivery O2 Flow Rate FiO2 11/22/16 16:00 Nasal Cannula 3.0 11/22/16 15:53 36.5 88 18 129/81 100 11/20/16 22:36 40 Physical Exam Constitutional: General Apperance: obese Lungs: Auscultation: no wheezing, no rales/crackles Cardiovascular: Heart Auscultation: RRR, no murmurs Extremities: no edema Assessment and Plan Assessment and Plan IMPRESSION: 1. Acute on chronic hypoxic and hypercapnic respiratory failure secondary to obesity hypoventilation syndrome and acute on chronic diastolic heart failure related to noncompliance with diuretic therapy. 2. Atypical chest pain -- resolved. 3. Hypotension -- resolved with borderline hypotension after intravenous diuretic therapy. 4. Chronic obstructive pulmonary disease. 5. Morbid obesity. PLAN: Pulmonary med input noted and appreciated. Continue chlorthalidone. Laboratory Results Last 24 Hours Test 11/22/16 05:39 Sodium Level 141 mmol/L Potassium Level 4.2 mmol/L Chloride Level 94 mmol/L Carbon Dioxide Level 45 mmol/L Anion Gap 2.0 mmol/L Blood Urea Nitrogen 31 mg/dl Creatinine 1.20 mg/dl Est Creatinine Clear Calc Drug Dose 59.7 ml/min Estimated GFR () 58.9 Estimated GFR (Non- 50.8 BUN/Creatinine Ratio 25.7 Random Glucose 79 mg/dl Calcium Level 9.2 mg/dl Magnesium Level 2.5 mg/dl
--- NOTE | 2016-11-22 17:17 | Progress Note ---
Internal Med Progress Note Date of Service: November 22, 2016. Provider Documentation: SUBJECTIVE: sitting up on side of bed feels much better today minimum SOB , no orthopnea no cough or chest pain ,no fever or chills OBJECTIVE: Vital Signs-as noted below Exam: General-morbid obesity , no apparent sign of distress Eyes-sclera non icteric ENT-NAD Lungs-diminished , scattered wheeze Heart-regular S1/S2 Abdomen-soft, non tender Extremities-+1-2 bilat lower ext edema Neuro-AAO x3, no focal deficit Lab data as noted below. ASSESSMENT & PLAN: ACUTE ON CHRONIC DIASTOLIC HEART FAILURE CHRONIC HYPOXIC/HYPERCAPNIC RESPIRATORY FAILURE -improved , vol status to approx baseline Presents with worsening SOB on exertion and chest congestion, dry cough, weight gain and leg swelling CXR: Pulm vascular congestion with pleural effusions Has underlying COPD, Former smoker, sleep apnea. ? suspect obesity hypoventilation syndrome - echo: * There is moderate concentric left ventricular hypertrophy. * Left ventricular systolic function is normal. * Ejection Fraction = 65-70%. * There is moderate right ventricular hypertrophy. * The right ventricular systolic function is normal. * Diastolic dysfunction, Grade II, consistent with elevated left atrial pressure. -- from non adherence to medications, diet -- diuresing, -1L fluid balance, weight down by 4kg -- significantly improved leg edema Lasix on hold for low urine out put /possible intravascular vol depletion urine out put improved after IV fluid bolus appreciate input form Cardiology started on Chlorthalidone 25 mg PO today ordered for nocturnal pulse oximetry pulmonology eval requested appreciate input will need to have out pt sleep medicine followup and sleep study eval UTI : UA grossly positive with associated hematuria started on Rocephin urine culture -E Coli CHEST PAIN no symptom now, possibly due to above ACS ruled out cardiac markers negative ekg: no signs of ischemia continue Aspirin, Plavix, Statin, Carvedilol, Lisinopril appreciate Cardiology consult HTN BP remains stable D/c amlodipine due to lower ext edema continue Carvedilol with holding parameters chlorthalidone resumed HX CVA, MTHFR MUTATION continue statin, ASA, and Plavix DEPRESSION, ANXIETY stable continue Effexor, Nortriptyline COPD stable cont PRN neb tx CKD II: Stable Obesity: BMI:49.9 DVT PX high risk for morbid obesity limited mobility SQ Heparin resumed PT/OT eval requested CODE STATUS: Full code DISPOSITION: PT eval appreciated -recommend rehab patient agreeable to go to Rehab if necessary referral made to [facility] pt will be transferred [facility] tomorrow Vital Signs: Date Time Temp Pulse Resp B/P Pulse Ox O2 Delivery O2 Flow Rate FiO2 11/22/16 16:00 Nasal Cannula 3.0 11/22/16 15:53 36.5 88 18 129/81 100 3.0 11/22/16 14:07 70 18 94 Nasal Cannula 4.0 11/22/16 11:55 Nasal Cannula 4.0 11/22/16 11:47 36.7 66 18 115/82 98 4.0 11/22/16 08:00 Nasal Cannula 4.0 11/22/16 07:20 36.2 62 18 103/74 97 Room Air 11/22/16 07:12 71 18 97 Nasal Cannula 4.0 11/22/16 05:24 36.7 67 20 108/72 93 Nasal Cannula 4.0 11/22/16 04:00 Nasal Cannula 4.0 11/22/16 04:00 Nasal Cannula 4.0 11/21/16 23:59 Nasal Cannula 4.0 11/21/16 23:13 36.6 65 16 99/67 93 Nasal Cannula 4.0 11/21/16 20:00 93 Nasal Cannula 4.0 11/21/16 19:51 36.5 62 16 92/55 99 Nasal Cannula 4.0 11/21/16 19:09 76 18 92 Nasal Cannula 3.0 Lab Results: Results Past 24 Hours Test 11/22/16 05:39 Range/Units Sodium Level 141 136-145 mmol/L Potassium Level 4.2 3.5-5.1 mmol/L Chloride Level 94 98-107 mmol/L Carbon Dioxide Level 45 21-32 mmol/L Anion Gap 2.0 3-11 mmol/L Blood Urea Nitrogen 31 7-18 mg/dl Creatinine 1.20 0.60-1.20 mg/dl Est Creatinine Clear Calc Drug Dose 59.7 ml/min Estimated GFR () 58.9 Estimated GFR (Non- 50.8 BUN/Creatinine Ratio 25.7 10-20 Random Glucose 79 70-99 mg/dl Calcium Level 9.2 8.5-10.1 mg/dl Magnesium Level 2.5 1.8-2.4 mg/dl
[2016-11-22] MEDS: DOCUSATE SODIUM 100 MG CAP PO SCH (21:19)
[2016-11-22] MEDS: NORTRIPTYLINE HCL 25 MG CAP PO SCH (21:20)
[2016-11-23 00:18] VITALS: BP 93/58; PULSE 69; TEMP 36.6; O2SAT 98
[2016-11-23] MEDS: CEFTRIAXONE SOD INJ 1 GM in DEXTROSE 5% ADD-VANTAGE 50ML 50 ML IV SCH (02:11)
[2016-11-23] MEDS: HEPARIN SOD 5000 UNIT/0.5 ML CARP SQ SCH ×2 (05:37→14:00)
[2016-11-23 06:59] VITALS: BP 102/71; PULSE 68; TEMP 36.4; O2SAT 97
[2016-11-23 07:13] VITALS: PULSE 71; O2SAT 95
[2016-11-23] MEDS: LEVALBUTEROL 1.25MG/0.5ML NEB INH SCH ×2 (07:13→14:13)
[2016-11-23] MEDS: IPRATROPIUM BROMIDE NEB SOLN 0.02% 2.5 ML VIAL INH SCH ×2 (07:13→14:13)
--- NOTE | 2016-11-23 07:14 | PROGRESS NOTE ---
DATE: 11/23/2016 The patient is very comfortable this morning. She states she used the CPAP last night and feels well. We discussed smoking cessation at great length. She has been able to stand to get bathed. Today is able to walk around her room without difficulty. She was up and out of bed in the chair, did well. She denies cough or sputum production and has not been orthopneic. PHYSICAL EXAMINATION: VITAL SIGNS: Her blood pressure is a bit low, last night 93/58, oxygen saturation 98% on 4 liters and she is afebrile. I\T\O 680 in and 600 out. Weight 108 kilograms down from 113.9 on the . Nurses' notes and medications reviewed. NECK: There is no evidence of thrush. No neck vein distention or HJR is noted. HEART: Regular rate and rhythm. No murmurs are heard. LUNGS: Clear with decreased breath sounds bilaterally. No crackles or wheezing noted. ABDOMEN: Soft and massively obese. EXTREMITIES: She has no cyanosis, clubbing or edema. LABORATORY DATA: Urinalysis revealed E. coli and alpha strep, which is not an enterococcus. Urinalysis did reveal few inflammatory cells and red blood cells as well. IMPRESSION: 1. Respiratory failure with hypercapnia secondary to chronic obstructive pulmonary disease and hypoventilation syndrome. 2. Obstructive sleep apnea. 3. Chronic obstructive pulmonary disease with exacerbation. RECOMMENDATIONS: 1. Continue on CPAP or BiPAP every time she sleeps. I would prefer BiPAP with a setting of inspiratory pressure of 14, expiratory pressure of [address] rate of 10-12. That will help to improve her hypercapnia and support her at night. 2. Outpatient full nocturnal polysomnogram. 3. Continue with her present medications. I think the IV antibiotics probably could be switched to oral antimicrobial agents now. 4. Avoid tobacco; we discussed this at great length. Overall, she is stable today.
[2016-11-23] MEDS: DOCUSATE SODIUM 100 MG CAP PO SCH (07:32)
[2016-11-23] MEDS: CLOPIDOGREL BISULFATE 75 MG TAB PO SCH (07:33)
[2016-11-23] MEDS: ASPIRIN 81 MG ECTAB PO SCH (07:33)
[2016-11-23] MEDS: MODAFINIL 100 MG TAB PO SCH (07:33)
[2016-11-23] MEDS: VENLAFAXINE HCL XR 150 MG CAPXR PO SCH (07:33)
[2016-11-23] MEDS: ATORVASTATIN 40 MG TAB PO SCH (07:33)
[2016-11-23] MEDS: POTASSIUM CHLORIDE 20 MEQ TABCR PO SCH (07:34)
[2016-11-23] MEDS: POLYETHYLENE (MIRALAX) 17 GM PACK PO SCH (07:35)
[2016-11-23] MEDS: CARVEDILOL 12.5 MG TAB PO SCH (07:35)
[2016-11-23 07:36] LABS: BUN/CREATININE RATIO 28.9 (10-20); CALCIUM 9.6 mg/dl (8.5-10.1); MAGNESIUM 2.6 mg/dl (1.8-2.4); POTASSIUM 4.4 mmol/L (3.5-5.1)
[2016-11-23 07:47] LABS: THYROID STIMULATING HORMONE 3.05 uIu/ml (0.300-4.500)
[2016-11-23] MEDS ORDERED: CHLORTHALIDONE 25 MG TAB PO SCH (09:00)
[2016-11-23] MEDS ORDERED: CPR/500 PO (13:45)
[2016-11-23] MEDS ORDERED: CARV6.252 PO (13:45)
--- NOTE | 2016-11-23 14:04 | Discharge Summary ---
Discharge Summary Date of Service November 23, 2016. Discharge Summary Admission Date: Nov 17, 2016 at 19:54 Discharge Date: November 23, 2016 Discharge Disposition: residential facility ([facility] ) Principal Diagnosis: ACUTE ON CHRONIC HYPOXEMIC RESPIRATORY FAILUIRE/DIASTOLIC CHF /MADONNA Procedures: ECHO 11/18/16 There is moderate concentric left ventricular hypertrophy. Left ventricular systolic function is normal. Ejection Fraction = 65-70%. There is moderate right ventricular hypertrophy. The right ventricular systolic function is normal. Diastolic dysfunction, Grade II, consistent with elevated left atrial pressure. Consultations: CARDIOLOGY [facility] DR RAMIREZ Pending Studies/Follow-Up: FOLLOW UP WITH FAMILY PHYSICIAN DR FIGUEROA AFTER DISCHARGE FORM [facility] CONTINUE TO USE BIPAP AT NIGHT TIME WILL NEED FOLLOW UP WITH SLEEP MEDICINE AND OUT PATIENT SLEEP STUDY FOR INSURANCE AUTHORIZATION OF CPAP/BIPAP AT HOME BASIC METABOLIC PANEL EVERY WEEK TO ASSESS CO2 LEVEL Medication Reconciliation New Medications: Carvedilol (Coreg) 6.25 Mg Tab 1 TAB PO BID for 90 Days, #180 TAB 1 Refill Ciprofloxacin (Ciprofloxacin HCl) 500 Mg Tab 1 TAB PO BID for 4 Days, #14 Continued Medications: Alprazolam (Xanax) 0.25 Mg Tab 0.25 MG PO TID PRN for Anxiety for 7 Days, #21 TAB (This prescription has been renewed) Aspirin (Aspirin Ec) 81 Mg Tab 81 MG PO DAILY Atorvastatin (Lipitor) 40 Mg Tab 40 MG PO DAILY, TAB Chlorthalidone (Hygroton) 25 Mg Tab 25 MG PO QAM, TAB Clopidogrel (Plavix) 75 Mg Tab 75 MG PO DAILY, TAB Cyanocobalamin (Vitamin B12) 1,000 Mcg Tab 500 MCG PO DAILY Folic Acid (Folvite) 1 Mg Tab 1 MG PO DAILY, TAB Ipratropium-Albuterol (Combivent Respimat) 1 Aer Aer 1 PUFF INH QID, INH Lisinopril (Zestril) 20 Mg Tab 20 MG PO DAILY, TAB Modafinil (Provigil) 100 Mg Tab 100 MG PO DAILY, TAB Nortriptyline (Pamelor) 50 Mg Cap 50 MG PO HS, CAP Potassium Chloride Microencaps (Potassium Chloride Er) 20 Meq Tab 20 MEQ PO DAILY, TAB Venlafaxine Hcl (Venlafaxine Hcl Er) 37.5 Mg Tab 37.5 MG PO DAILY TAKE ONE 37.5 MG TABLET ALONG WITH ONE 150 MG TABLET TO EQUAL 187.5 MG DOSE Venlafaxine Hcl (Venlafaxine Hcl Er) 150 Mg Tab 150 MG PO DAILY, TAB TAKE ONE 150 MG TABLET ALONG WITH ONE 37.5 MG TABLET TO EQUAL 187.5 MG DOSE Discontinued Medications: Amlodipine Besylate (Norvasc) 10 Mg Tab 10 MG PO DAILY, TAB Carvedilol (Coreg) 12.5 Mg Tab 12.5 MG PO BID, TAB TAKE THIS MEDICATION WITH FOOD Clonidine Hcl (Catapres) 0.1 Mg Tab 0.1 MG PO BID, TAB Magnesium Oxide (Mag-Ox) 400 Mg Tab 400 MG PO DAILY, TAB Admission Information HPI (per Admitting provider): Patient is a 56 yr old female with PMH of CKD II, Diastolic CHF, Tobacco use disorder, Sleep apnea, COPD, HTN, H/O CVA and other comorbidities presents with history of worsening SOB with exertion since 2 weeks. Also reports chest congestion since 2 days. Chest discomfort is retrosternal in location, dull, radiates to back, increases with exertion and deep breathing, associated with nausea, vomiting, diaphoresis and dizziness. States gaining 30 pounds and worsening bilateral leg swelling. Admits to missing her home medications intermittently. Patient is on 4lNC at baseline and denies any excess requirement. Also reports dry cough and chills but denies wheezing, fever. Also denies orthopnea, PND, abd pain, diarrhea, urinary symptoms, palpitations, headache, blurry vision bt states having generalized weakness. Physical Exam (per Admitting): General Appearance: WD/WN, no apparent distress, + obese Head: normocephalic, atraumatic Eyes: normal inspection, PERRL, EOMI, sclerae normal ENT: normal ENT inspection, hearing grossly normal Neck: supple, no JVD, trachea midline Respiratory/Chest: lungs clear, no respiratory distress, no accessory muscle use, + decreased breath sounds, + pertinent finding (Positive chest tenderness) Cardiovascular: regular rate, rhythm, no murmur, + pertinent finding (B/L LE edema) Abdomen/GI: normal bowel sounds, non tender, soft, + pertinent finding ( Obese) Back: normal inspection, normal range of motion Extremities/Musculoskelatal: normal inspection, + swelling (B/L LE) Neurologic/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 ? suspect obesity hypoventilation syndrome - echo: * There is moderate concentric left ventricular hypertrophy. * Left ventricular systolic function is normal. * Ejection Fraction = 65-70%. * There is moderate right ventricular hypertrophy. * The right ventricular systolic function is normal. * Diastolic dysfunction, Grade II, consistent with elevated left atrial pressure. -- from non adherence to medications, diet -- diuresing, -1L fluid balance, weight down by 4kg -- significantly improved leg edema Lasix on hold for low urine out put /possible intravascular vol depletion urine out put improved after IV fluid bolus appreciate input form Cardiology started on Chlorthalidone 25 mg PO today ordered for nocturnal pulse oximetry pulmonology eval requested appreciate input will need to have out pt sleep medicine followup and sleep study eval UTI : UA grossly positive with associated hematuria started on Rocephin urine culture -E Coli CHEST PAIN no symptom now, possibly due to above ACS ruled out cardiac markers negative ekg: no signs of ischemia continue Aspirin, Plavix, Statin, Carvedilol, Lisinopril appreciate Cardiology consult HTN BP borderline low D/c amlodipine due to lower ext edema Coreg dose reduced to 6.25 mg BID ( was on 12.5 BID ) chlorthalidone resumed HX CVA, MTHFR MUTATION continue statin, ASA, and Plavix DEPRESSION, ANXIETY stable continue Effexor, Nortriptyline COPD stable cont PRN neb tx CKD II: Stable Obesity: BMI:49.9 DVT PX high risk for morbid obesity limited mobility SQ Heparin resumed PT/OT eval requested CODE STATUS: Full code DISPOSITION: PT eval appreciated -recommend rehab patient agreeable to go to Rehab if necessary referral [facility] to [facility] pt is stable to be transferred [facility] today Total time spent on discharge = 35 MINS This includes examination of the patient, discharge planning, medication reconciliation, and communication with other providers. Discharge Instructions Discharge Instructions Date of Service November 22, 2016. Admission Reason for Admission: SOB Discharge Discharge Diagnosis / Problem: ACUTE ON CHRONIC HYPOXEMIC RESPIRATORY FAILUIRE/ DIASTOLIC CHF /MADONNA Discharge Goals Goal(s): Decrease discomfort, Increase independence, Improve disease control, Diagnostic testing Activity Recommendations Activity Level: Assistance Required Therapies: Physical Therapy, Occupational Therapy . Additional Information Patient informed of condition: Yes Advance Directives: No DNR: No Level of Care: Skilled Communicable Disease: No Prognosis: Stable Oxygen at (LPM): 3 L VIA NASAL CANULA CONT -KEEP SPO2 BETWEEN 88-90 % Damon Catheter: No Instructions / Follow-Up Instructions / Follow-Up FOLLOW UP WITH FAMILY PHYSICIAN DR FIGUEROA AFTER DISCHARGE FORM [facility] CONTINUE TO USE BIPAP AT NIGHT TIME WILL NEED FOLLOW UP WITH SLEEP MEDICINE AND OUT PATIENT SLEEP STUDY FOR INSURANCE AUTHORIZATION OF CPAP/BIPAP AT HOME Current Hospital Diet Patient's current hospital diet: Low Sodium Diet (2gm Na), AHA Diet (Heart Healthy) Discharge Diet Recommended Diet: AHA Diet (Heart Healthy)/Low Sodium Diet (2gm Na) FLUID RESTRICTION 1500ML/DAY ( 6 CUPS ) Pending Studies Studies pending at discharge: yes List of pending studies: BASIC METABOLIC PANEL EVERY WEEK TO ASSESS CO2 LEVEL Medical Emergencies . Who to Call and When: Medical Emergencies: If at any time you feel your situation is an emergency, please call 911 immediately. . Non-Emergent Contact Non-Emergency issues call your: Primary Care Provider . . "Provider Documentation" section prepared by Shruthi Engle. . Ditch Digger Recommendations Ditch Digger Recommendations: PULMONOLOGY RECOMMENDATION : 1. pt will need to continue on Bipap at night with positive inspiratory pressure of 16 /expiratory pressure or 6 with S/T rate 12 2. follow electrolytes -CO2 level /basic metabolic panel weekly 3. O2 3 L via nasal canula , with goal saturation 88-90 % 4. Combivent INH 1 puff 4 times daily 5. DuoNeb tx INH 4 times daily 6.Will need out patient sleep study Core Measure Problem Core Measures: None Additional Copies To Toan Dozier M.D. Hale, Richard C. D.O. Pulmonary
[2016-11-23 14:10] VITALS: BP 102/71; PULSE 71; TEMP 36.4; O2SAT 95
[2016-11-23 14:13] VITALS: PULSE 74; O2SAT 97
[2016-11-23 15:20] VITALS: BP 111/77; PULSE 72; TEMP 36.4; O2SAT 97
[2016-11-23] MEDS ORDERED: CARVEDILOL 6.25 MG TAB PO SCH (21:00)
== END 2016-11-23 17:30 | DRG 291 ==
LOC: ENRESERVDT → ENRESERVTM → C.EDB 15:42 → C.MED 19:54 → EDBEDREQ 20:19
PROVIDERS: ADMIT Internal Medicine; ATTEND Hospitalist
DX: I13.0 Hypertensive heart and chronic kidney disease with heart failure and stage 1 through stage 4 chronic kidney disease, or unspecified chronic kidney disease (principal); J96.01 Acute respiratory failure with hypoxia; I50.33 Acute on chronic diastolic (congestive) heart failure; Z68.42 Body mass index [BMI] 45.0-49.9, adult; N39.0 Urinary tract infection, site not specified; E66.2 Morbid (severe) obesity with alveolar hypoventilation; J44.1 Chronic obstructive pulmonary disease with (acute) exacerbation; Z86.73 Personal history of transient ischemic attack (TIA), and cerebral infarction without residual deficits; F32.9 Major depressive disorder, single episode, unspecified; E78.5 Hyperlipidemia, unspecified; N18.2 Chronic kidney disease, stage 2 (mild); F17.200 Nicotine dependence, unspecified, uncomplicated; Z99.81 Dependence on supplemental oxygen; E87.6 Hypokalemia; G47.33 Obstructive sleep apnea (adult) (pediatric); B96.20 Unspecified Escherichia coli [E. coli] as the cause of diseases classified elsewhere; Z88.0 Allergy status to penicillin; I27.2 Other secondary pulmonary hypertension; R07.89 Other chest pain; I95.9 Hypotension, unspecified

== ENCOUNTER → 2017-01-12 | Outpatient (CLI) | payer OTHER ==
[~2017-01-12] MED LIST changes: +ALPR0.25 PO; -AMLO-114 PO; -ASPEC81 PO; +ASPI81TA28 PO; -ATRIN INH; -CARV25TA PO; +CARV6.252 PO; -CLON0.2T PO; -CMBIN INH; +CPR/500 PO; +CYAN100020 PO; -EFFSR375 PO; -FLV1 PO; +FOLI1TAB7 PO; +IPRA1AER2 INH; +LISI-725 PO; -LISI40TA PO; -MGNO400 PO; +MODA100T17 PO; -PRV100 PO; -PYR50 PO; +VENL-271 PO; +VENL150T33 PO; -VTMB12 PO; -XNX25 PO
--- NOTE | 2017-01-13 05:55 | PAP/PSG TECHNICIAN REPORT ---
[facility] Icd 9 Coder Polysomnogram Report Study name: None Report date: 01/13/2017 Study date: 01/12/2017 Referring Physician: Ronit Gil PA-C Name: WOLFGANG COOK Interpreting Physician: Zeferino Stratton M.D. Date of : 1960 Icd 9 Coder: May[facility] Hernandez [facility] Sex: Female Age: 56 StudyType: PSG PAP Weight: 230 lbs Height: 56 years, Height 5' 0" Neck Circum:21inches BMI: 44.91 Medications: Coreg 6.25mg, Prinivil 20mg, Effexor Xr 150mg, Effexor Xr 37.5mg, Potassium Chloride Aruna ER 20MEQ, Hygroton 25mg, Lipitor 40mg, Combivent Respimat 20-100mcg/act, Nortriptyline 50mg, Folic Acid 1mg, Plavix 75mg, Vit B12, Cipro 500mg, Xanax 0.25mg, Aspirin 81mg, Provigil 100mg, Oxygen 3 LPM Patient History Study started on room air with 5cwp cpap in room #6. 56 yr old female here tonight for a new titration study. She was in the hospital and [facility] rehab in June 2016 and in November 2016. In June she was placed on 3lpm oxgen. She stated that she had increased CO2 levels. She has heart failure and acute respiratory failure. She has MADONNA and COPD overlap syndrome, HTN, morbid obesity and kidney disease, chronic, stage III. Her ESS=17/21...she does not drive. Her neck circ=21inches. During academic support director she took her oxygen off and her finger nails and lips were cyanotic. She had edema in her feet and legs. called Dr. Stratton to see if she should be started on oxygen. He said ok to add oxygen because she already qualified for it. Parameters Monitored NPSG: E1-M2, E2-M1, Fp1-M2, Fp2-M1, F3-M2, F4-M2, F4-M1, C3-M2, C4-M2, C4-M1, O1-M2, O2-M2, O2-M1, T3-M2, T4-M1, P3-M2, P4-M1, CHIN1, CHIN2, HR, EKG, Legs, PFLOW, SNOR, FLOW, CFLOW, Tidal Volume, THOR, ABDO, SpO2, PLTH, CPRESS, ETCO2 Wave, ETCO2, pH Sleep Architecture Sleep Stages Time at Lights Off 10:27:44 PM STAGES Time (min.) TST (%) Time at Lights On 5:30:14 AM Wake 130.0 -- Total Recording Time (TRT) 422.50 min. N1 15.5 5 Total Sleep Period (TSP) 352.0 min. N2 143.0 49 Total Sleep Time (TST) 292.5min. N3 108.5 37 Awake Time 130.0 min. REM 25.5 9 Wake after Sleep Onset 59.5 min. Sleep Efficiency (SE) 69 % Sleep Onset Latency (GINA) 70.5 min. Number of Stage 1 Shifts None Awakenings 9 Stage Changes 50 Number of REM periods 2 REM 25.5 9 REM Latency 325.5 min. NREM 267.0 91 Body Position Analysis Supine Right Left Side Prone Vertical Total Sleep Time (min.) 422.5 0.0 0.0 0.00 0.0 0.0 Total Sleep Time (%) 100% 0% 0% 0 0% N/A% Total Sleep Time REM (min.) 25.5 0.0 0.0 None 0.0 0.0 Total Sleep Time NREM (min.) 267.0 0.0 0.0 None 0.0 0.0 Intermittent Wake (min.) 130.0 0.0 0.0 None 0.0 0.0 Total Sleep Period (%) 100% None None None None None Arousals Myoclonus (PLM) * Events Count Index Events Count Index Spontaneous 4 1 Events Awake (PLMW) 116 53.5 Respiratory 14 2.9 Events Asleep w/ Arousal (PLMA) 8 1.6 PLM 8 2 Events Asleep w/o Arousal (PLMS) 200 41.0 Snoring 1 0 Total Asleep 208 42.7 Total 27 6 Total 324 46 Respiratory Analysis * CA OA MA CH H RERA Total Count 0 8 0 0 16 0 24 Index 0.0 1.6 0.0 0 3.3 0 4.9 Mean Duration 0.0 28.5 0.0 0.00 23.4 0.0 25.1 Longest Duration 0.0 64.5 0.0 0.00 0.0 0.0 64.5 Respiratory Event Summary Total Supine ~Supine Right Left Prone REM NREM Apneas Count 8 8 N/A N/A N/A N/A 0 8 Index 1.6 2 N/A N/A N/A N/A 0 2 Hypopneas (4% Desat) Count 16 16 N/A N/A N/A N/A 2 14 Index 3.3 3.3 N/A N/A N/A N/A 4.7 3.1 Apneas & All Hypopneas Count 24 24 N/A N/A N/A N/A 2 22 Index 4.9 5 N/A N/A N/A N/A 4.7 4.9 Respiratory Events (Pick Pulling Machine Operator+All Hyp+RERA) Count 24 24 N/A N/A N/A N/A 2 22 Index 4.9 5 N/A N/A N/A N/A 4.7 4.9 Respiratory Related Arousal Count 14 24 N/A N/A N/A N/A 0 14 Index 2.9 3 N/A N/A N/A N/A 0 3 Snoring Analysis Supine Right Left Prone REM NREM Total Snore duration 7.1 min Snores count 322 N/A N/A N/A 5 317 322 Snore mean duration 1.3 Sec Snores index 66 N/A N/A N/A 11.8 71.2 66.1 TST with snoring (%) 2.4% Desaturation Event Summary: Minimum %SpO2 Event Count Mean/Min/Max Duration(sec.) Desaturation Index % Time In Bed > 90 38 30.4 / 8.3 / 57.8 17.1 32.3 86 - 90 46 29.6 / 6.0 / 60.0 12.7 52.6 81 - 85 17 32.5 / 16.0 / 60.0 17.2 14.4 76 - 80 0 N/A 0.0 0.7 71 - 75 0 N/A 0.0 0.0 66 - 70 0 N/A 0.0 0.0 61 - 65 0 N/A 0.0 0.0 56 - 60 0 N/A 0.0 0.0 51 - 55 0 N/A 0.0 0.0 < 50 0 N/A 0.0 0.0 Total REM NREM Awake <50% 0.0 min. 0.0 min. 0.0 min. 0.0 min. 51 - 60% 0.0 min. 0.0 min. 0.0 min. 0.0 min. 61 - 70% 0.0 min. 0.0 min. 0.0 min. 0.0 min. 71 - 80% 2.9 min. 0.0 min. 2.5 min. 0.4 min. 81 - 90% 275.8 min. 0.5 min. 196.4 min. 78.9 min. 91 - 100% 133.2 min. 25.0 min. 67.7 min. 40.5 min. Average 89 94 88 89 Minimum SpO2 78 89 78 80 Desaturation Event Index 11.4 11.8 11.5 11.1 # Desat. Events below 89% 67 N/A 50 17 Time(%) with Saturation below 89% 42.5 0.0 32.0 10.5 Time(min.) with Saturation below 89% 175.0 0.0 132.0 43.0 Time (mins) REM (mins) NREM (mins) % of TST SpO2 Below 90% 53 2 N51 58.1 SpO2 Below 88% 25 0 0 32 Heart Rate Analysis Min (bpm) Max (bpm) Average (bpm) Awake 62 161 80 NREM 61 90 77 REM 65 79 73 Overall 61 90 77 Supplemental O2 Values Minimum O2 level: None Value Start Time End Time Icd 9 Coder Comments Ms. Cook slept in the supine position with the head and feet slightly elevated. No cardiac arrhythmia noted. PLM's noted. No bruxism noted. CPAP was initiated at +5 CMH2O and up-titrated to a level of +9 CMH2O.At 10:40 pm 1liter of oxygen was added because her oxygen saturations were below 89% for 10.5minutes.Oxygen was again added one liter at a time at 12am with oxygen saturations below 89% for 17.8minutes and then again at 1:56am when oxygen saturations were below 89% for 51.8minutes and finally up to 4 liters at 3:31am when oxygen saturations were below 89% for 76.3minutes. A small Mirage Quattro full face mask by [facility] was used during titration . She awoke to use the restroom 2 times during the night. She stated that she slept well. The final report will be interpreted and signed by a sleep physician. The completed physician report will then be placed in the patient medical record. study had to be ended at 5:30 because her daughter was picking her up at 6am Therapy Event: Therapy (cm H20) 5 7 8 9 Total Time at Pressure (min.) 122.9 20.2 186.6 92.9 TST at Pressure (min.) 51.9 20.2 129.6 90.9 # Periods 1 1 1 1 Sleep Onset (min.) 70.5 0.0 0.0 0.0 REM Onset (min.) N/A N/A N/A 66.4 Sleep Efficiency % 42 100 69 97 Wakefulness (%) 57.8 0.0 30.6 2.2 Wakefulness (min.) 71.0 0.0 57.0 2.0 NREM 1 (%) 1.6 5.0 5.4 2.7 NREM 1 (min.) 2.0 1.0 10.0 2.5 NREM 2 (%) 12.1 52.9 47.7 30.6 NREM 2 (min.) 14.9 10.7 89.1 28.4 NREM 3 (%) 28.5 42.2 16.3 37.1 NREM 3 (min.) 35.0 8.5 30.5 34.5 REM (%) 0.0 0.0 0.0 27.4 REM (min.) 0.0 0.0 0.0 25.5 # Arousals 5 5 10 7 Arousal Index 5.8 14.9 4.6 4.6 # Snore 29 2 121 170 Snore Index 33.5 6.0 56.0 112.2 AHI 8.1 11.9 4.6 2.0 AHI Supine 8.1 11.9 4.6 2.0 AHI Non-Supine N/A N/A N/A N/A NREM AHI 8.1 11.9 4.6 0.9 REM AHI N/A N/A N/A 4.7 RDI 8.1 11.9 4.6 2.0 # Obstructive 4 2 2 0 # Central Ap 0 0 0 0 # Mixed 0 0 0 0 # Hypopneas 3 2 8 3 RERAS 0 0 0 0 Total Respiratory Events 7 4 10 3 Time Below SpO2 89.00% (min.) 43.0 8.9 79.8 0.3 Mean NREM SpO2 (%) 85 88 88 92 Mean REM SpO2 (%) N/A N/A N/A 94 Mean Sleep SpO2 (%) 85 88 88 92 Min NREM SpO2 (%) 79 78 80 87 Min REM SpO2 (%) N/A N/A N/A 89 Position Supine (min.) 51.9 20.2 129.6 90.9 Position Non-supine (min.) 0.0 0.0 0.0 0.0 LM Index Sleep 44.0 89.3 50.5 20.5 LM Index NREM 44.0 89.3 50.5 16.5 LM Index REM N/A N/A N/A 30.6 Mean Heart Rate (bpm) 80 80 78 73 Min Heart Rate (bpm) 69 71 63 61
--- NOTE | 2017-01-19 11:19 | Sleep Study ---
Sleep Study Report Date of Service: 01/12/2017 Sleep Study Report Clinical data: The patient is a 56-year-old female with a BMI of 44.9 referred to the sleep lab for evaluation of COPD/obstructive sleep apnea overlap syndrome. She was recently admitted to the hospital with congestive heart failure and acute respiratory failure. She is currently on oxygen 24 hours a day. Her [place] sleepiness Score is elevated at 17/21. Sleep architecture: Total sleep period was 352 minutes. Total sleep time was 292.5 minutes divided between 267 minutes of non-REM sleep and 25.5 minutes of REM sleep. Sleep onset latency was delayed at 70.5 minutes. REM latency was delayed at 325.5 minutes. Sleep efficiency was reduced at 69%. Wake after sleep onset was elevated at 59.5 minutes. Sleep consisted of stage N1 5%, N2 49 %, N3 37%, and REM 9%. Arousal data: 27 arousals were recorded for an index of 6 per hour. PLM data: 208 limb movements during sleep were noted for an index of 42.7 per hour with an arousal index of 1.6 per hour. Respiratory data: The apnea-hypopnea index was 4.9. There were 8 obstructive apneic episodes. The longest apnea episode was 64.5 seconds. There were 16 hypopneas episodes. The mean duration of hypopnea was 23.4 seconds. Oximetry data: Significant nocturnal hypoxemia was seen. Oxygen diane was 78 percent. Mean saturation was 89 percent. Time below 88 percent was 25 minutes. EKG data: Heart rates ranged from 61 to 90 beats per minute. No arrhythmias were noted. Metal Window Frame Maker's comments and treatment summary: Patient slept supine with the head of her bed and her feet elevated. She was started on CPAP and was titrated up to her final pressure setting of 9 centimeters water pressure. She used a small Mirage Quattro fullface mask by [email or web address]. She did remain hypoxemic in spite of correction with CPAP of her sleep apnea. Oxygen was added 1 liter at time eventually titrating up to 4 liters/minute at 3:31 a.m.. At her final pressure setting the patient slept for 90.9 minutes with an AHI of 2.0. Impression: 56-year-old female with obstructive sleep apnea and COPD corrected with CPAP 9 centimeters water pressure and oxygen 4 liters/minute. Recommendations: The patient will be started on CPAP at the above-noted pressure settings along with oxygen 4 liters/minute at night. She should be seen back in follow-up within 90 days to document efficacy and compliance. Copies To 1: Ronit Gli P.A.
== END ==
LOC: C.NEUR 21:00
PROVIDERS: ATTEND Physician Assistant
DX: G47.33 Obstructive sleep apnea (adult) (pediatric) (principal); J44.9 Chronic obstructive pulmonary disease, unspecified

== ENCOUNTER 2024-08-01 12:35 | Inpatient (IN) ==
--- NOTE | 2024-08-01 13:02 | Emergency Department Note ---
Impression & Plan Acute exacerbation of CHF (congestive heart failure), Pulmonary edema, Acute hypoxemic respiratory failure, Acute dyspnea ED Provider Note HISTORY OF PRESENT ILLNESS: Patient is a 64-year-old female presenting with shortness of breath and chest pressure. Patient wears 4 L nasal cannula at all times. However, in the last week she feels like "I am not getting enough oxygen." She states that she has had progressively worsening shortness of breath and chest pressure. She has had some increasing lower extremity edema. She has been taking extra of her "fluid pill" all week with little improvement in her swelling." Patient denies any abdominal pain, nausea or vomiting. Reports a nonproductive cough and generalized bodyaches and headache. ROS: as above PHYSICAL EXAM: Constitutional: Patient appears in no acute distress. Morbidly obese HENT: Head: Normocephalic and atraumatic. Eyes: EOMI, PERRL Mouth/Throat: Mucous membranes moist. Neck: Trachea midline. Neck supple. Cardiovascular: RRR, No murmurs, rubs or gallops. Intact distal pulses. Pulmonary/Chest: Conversationally dyspneic. Coarse breath sounds bilaterally. Patient hypoxic on 6 L nasal cannula. Abdominal: Abdomen soft, no tenderness, rebound or guarding. Musculoskeletal: No tenderness or deformity noted. +2 pitting edema of bilateral lower extremities Skin: Warm and dry. No rash, erythema, pallor or cyanosis Psychiatric: Appropriate mood and affect for situation. Neurological: Alert and keenly responsive. CN II-XII grossly intact, moving all extremities equally and fully. MDM: - Vitals signs showed hypertension - History obtained via patient. History as above. - Chronic conditions affecting care: HLD; CVA; HTN; COPD - Differential diagnoses include, but are not limited to: Congestive heart failure; acute coronary syndrome; COPD/asthma exacerbation; pulmonary edema; pulmonary embolism; pneumonia; pneumothorax; viral syndrome - Order placed for continuous cardiac monitoring. At this time, monitor showed rate of 70 bpm with normal sinus rhythm, per my interpretation. - External medical records reviewed. Sleep study from 07/11/2019 was reviewed. Patient has a history of COPD - EKG interpreted by myself showed normal sinus rhythm. Rate 69 bpm. QT 408. No acute ischemic changes. - Laboratory workup interpreted by myself showed normal WBC; normal PT/INR; stable electrolytes; elevated bicarb (>45); elevated creatinine (Cr 1.21); elevated troponin (15.6); elevated BNP (748) - Viral respiratory swab negative - VBG showed respiratory acidosis (pH 7.34, pCO2 97 mmHg) - CXR showed moderate pulmonary edema. Radiology notes bilateral pleural effusions with findings concerning for possible overlying airspace opacities. - Patient remained hypoxic on 6 L nasal cannula. Given her hypercarbia and increased work of breathing, she was placed on BiPAP. Saturations improved to 97% and patient appeared more comfortable on the BiPAP. She was given 80 mg IV Lasix for diuresis. - Discussion was had with lining caser about patient's case and need for admission - Hospitalist consulted for admission - [facility]. I have personally spent 62 minutes of critical care time in the direct management of this patient. This includes bedside care, interpretation of diagnostic studies, and testing, discussion with consultants, patient, and family members, and other required patient management activities. This 62 minutes is in excess of all separately billable procedures. ASSESSMENT AND PLAN: Diagnosis: Acute CHF exacerbation; pulmonary edema; acute dyspnea; acute hypoxic respiratory failure Plan: Admit Past Med/Surg History Problem List (Updated 08/01/24 @ 14:53 by Nay Nelson MD) Acute dyspnea (Acute) Acute hypoxemic respiratory failure (Acute) Pulmonary edema (Acute) Acute exacerbation of CHF (congestive heart failure) (Acute) MTHFR mutation (Chronic) Depression with anxiety (Chronic) Dyslipidemia (Chronic) CVA (cerebral vascular accident) (Chronic) Hypokalemia (Chronic) HTN (hypertension) (Chronic) Hx of cholecystectomy (Chronic) Hx of tubal ligation (Chronic) History of hysterectomy (Chronic) Acute respiratory failure with hypoxia and hypercarbia (Acute) Pleural effusion (Acute) SOB (shortness of breath) Social History Feels Safe at Home: Yes Allergies Allergies Allergy/AdvReac Type Severity Reaction Status Date / Time Penicillins Allergy Unknown Verified 06/21/16 11:15 Home Meds Home Medications Medication Instructions Recorded Confirmed ATORVASTATIN (LIPITOR) 40 mg PO DAILY #0 tabs 06/21/16 CHLORTHALIDONE (HYGROTON) 25 mg PO QAM #0 tabs 06/21/16 Clopidogrel (Plavix) 75 mg PO DAILY #0 tabs 06/21/16 Nortriptyline (Pamelor) 50 mg PO HS #0 caps 06/21/16 POTASSIUM CHLORIDE MICROENCAPS 20 meq PO DAILY #0 tabs 06/21/16 (POTASSIUM CHLORIDE ER) ASPIRIN (ASPIRIN EC) 81 mg PO DAILY ##0 11/17/16 CYANOCOBALAMIN (VITAMIN B12) 500 mcg PO DAILY ##0 11/17/16 FOLIC ACID (FOLVITE) 1 mg PO DAILY #0 tabs 11/17/16 IPRATROPIUM-ALBUTEROL (COMBIVENT 1 puff inhalation QID #0 11/17/16 RESPIMAT) inhalations LISINOPRIL (ZESTRIL) 20 mg PO DAILY #0 tabs 11/17/16 Modafinil (Provigil) 100 mg PO DAILY #0 tabs 11/17/16 VENLAFAXINE HCL (VENLAFAXINE HCL 37.5 mg PO DAILY ##0 11/17/16 ER) VENLAFAXINE HCL (VENLAFAXINE HCL 150 mg PO DAILY #0 tabs 11/17/16 ER) Previous Rx's Medication Instructions Recorded ALPRAZOLAM (XANAX) 0.25 mg PO TID PRN Anxiety 7 days 11/22/16 #21 tabs CARVEDILOL (COREG) 1 tab PO BID 90 days #180 tabs 11/23/16 Ciprofloxacin (Ciprofloxacin HCl) 1 tab PO BID 4 days ##14 11/23/16 Results & Data (ED) Vital Signs Vital Signs - 24 hr 08/01/24 12:45 08/01/24 12:54 08/01/24 13:15 Temperature 36.5 C Temperature Source Oral Pulse Rate 64 68 Pulse Rate [Apical] Respiratory Rate 22 Respiratory Effort / Characteristics Respiratory Depth Respiratory Pattern Blood Pressure 153/84 H Blood Pressure [Right Arm] Blood Pressure Mean 107 Blood Pressure Mean [Right Arm] Blood Pressure Position [Right Arm] Pulse Oximetry 89 L Oxygen Delivery Method Nasal Cannula Nasal Cannula Oxygen Flow Rate 6 6 Fraction of Inspired Oxygen Sepsis Recent Fever Within 48 Hours No Sepsis New/Unexplained Change in Mental Status No Sepsis Action Taken by Nursing No Action Required 08/01/24 14:00 08/01/24 14:04 Temperature Temperature Source Pulse Rate 70 Pulse Rate [Apical] 75 Respiratory Rate 18 16 Respiratory Effort / Characteristics Spontaneous Pursed Lip Short of Breath Respiratory Depth Normal Respiratory Pattern Regular Blood Pressure Blood Pressure [Right Arm] 137/71 Blood Pressure Mean Blood Pressure Mean [Right Arm] 93 Blood Pressure Position [Right Arm] Semi-fowlers Pulse Oximetry 94 97 Oxygen Delivery Method BiPAP Oxygen Flow Rate Fraction of Inspired Oxygen 40 Sepsis Recent Fever Within 48 Hours Sepsis New/Unexplained Change in Mental Status Sepsis Action Taken by Nursing Laboratory Data 08/01/24 13:20 08/01/24 13:20 Lab Results 08/01/24 Range/Units 13:20 WBC 10.33 (4.8-10.8) K/ul RBC 4.11 L (4.20-5.40) M/uL Hgb 11.2 L (12.0-16.0) g/dl Hct 38.8 (37.0-47.0) % MCV 94.4 (80.0-100.0) fL MCH 27.3 (25.0-34.0) pg MCHC 28.9 L (32.0-36.0) g/dL RDW Std Deviation 47.7 H (36.4-46.3) fL RDW Coeff of Jojo 13.9 (11.5-14.5) % Plt Count 286 (130-400) K/uL MPV 11.0 (9.4-12.4) fL Immature Gran % (Auto) 0.4 % Neut % (Auto) 74.4 % Lymph % (Auto) 13.5 % Ramsey % (Auto) 7.7 % Eos % (Auto) 3.4 % Baso % (Auto) 0.6 % Neut # (Auto) 7.69 H (1.40-6.50) K/uL Lymph # (Auto) 1.39 (1.20-3.40) K/uL Ramsey # (Auto) 0.80 H (0.11-0.59) K/uL Eos # (Auto) 0.35 (0.00-0.50) K/uL Baso # (Auto) 0.06 (0.00-0.20) K/uL Immature Gran # (Auto) 0.04 (0.01-0.20) K/uL PT 10.9 (9.0-12.0) Seconds INR 1.0 (0.9-1.1) VBG pH 7.34 L (7.36-7.41) VBG pCO2 97 H (38-50) mmHg VBG pO2 35 mmHg VBG HCO3 52 mmol/L VBG O2 Saturation < 60.0 % VBG Base Excess 20.9 mEq/L Sodium 145 (136-145) mmol/L Potassium 4.7 (3.5-5.1) mmol/L Chloride 93 L (98-107) mmol/L Carbon Dioxide > 45 H* (21-32) mmol/L Anion Gap TNP BUN 26 H (6-23) mg/dl Creatinine 1.21 H (0.6-1.2) mg/dl Est Cr Clr Drug Dosing 61.1 ml/min eGFR 50.36 BUN/Creatinine Ratio 21.5 H (10-20) Glucose 138 H (70-99(Fasting)) mg/dl Calcium 9.3 (8.6-10.3) mg/dl Magnesium 1.9 (1.7-2.4) mg/dl Total Bilirubin 0.6 (0.2-1.0) mg/dl AST 25 (13-39) U/L ALT 19 (7-52) U/L Alkaline Phosphatase 87 (34-104) U/L Troponin I High Sens 15.6 H (0-14) pg/ml B-Natriuretic Peptide 748 H (0-100) pg/ml Total Protein 7.9 (6.0-8.3) gm/dl Albumin 3.6 (3.4-5.0) gm/dl Globulin 4.3 H (2.5-4.0) gm/dl Albumin/Globulin Ratio 0.8 L (0.9-2) Adenovirus (PCR) Not Detected (NotDetected) B. pertussis DNA (PCR) Not Detected (NotDetected) B.parapertussis DNA PCR Not Detected (NotDetected) C. pneumoniae DNA (PCR) Not Detected (NotDetected) Coronavirus OC43 (PCR) Not Detected (NotDetected) Coronavirus HKU1 (PCR) Not Detected (NotDetected) Coronavirus 229E (PCR) Not Detected (NotDetected) SARS-CoV-2 (PCR) Not Detected (NotDetected) Coronavirus NL63 (PCR) Not Detected (NotDetected) Human Metapneumovir PCR Not Detected (NotDetected) Influenza Type A (PCR) Not Detected (NotDetected) Influenza Type B (PCR) Not Detected (NotDetected) M. pneumoniae (PCR) Not Detected (NotDetected) Parainfluenza 1 (PCR) Not Detected (NotDetected) Parainfluenza 2 (PCR) Not Detected (NotDetected) Parainfluenza 3 (PCR) Not Detected (NotDetected) Parainfluenza 4 (PCR) Not Detected (NotDetected) RSV (PCR) Not Detected (NotDetected) Entero/Rhino (PCR) Not Detected (NotDetected) Administered Medications Discontinued Medications Furosemide (Furosemide 40 Mg/4 Ml Vial) 80 mg IV ONE ONE Stop: 08/01/24 14:23 Last Admin: 08/01/24 14:35 Dose: 80 mg Documented By: LCD Imaging Data Radiologist's Impression: Chest X-Ray 08/01/24 12:54 XR chest 1V portable CLINICAL HISTORY: Dyspnea TECHNIQUE: Single frontal radiograph of the chest was obtained. Comparison: Comparison is made to chest radiograph 11/18/2016 FINDINGS: Exam is limited by underpenetration. Cardiomegaly is noted. There is prominence and cephalization of the vasculature with Girish B lines seen. Small bilateral pleural effusions are seen with bilateral airspace opacities. IMPRESSION: 1. Cardiomegaly and moderate pulmonary edema. 2. Small bilateral pleural effusions with underlying airspace opacities likely representing atelectasis with or without superimposed aspiration/pneumonia. ACT 112: Negative or not required by law. Electronically signed by: Kiel Quintero M.D. 08/01/2024 1:22 PM Discharge Plan Visit Data Chief Complaint: Shortness of Breath/Dyspnea Stated Complaint: SOB ED Provider: Nay Nelson Discharge Problem: Acute exacerbation of CHF (congestive heart failure), Pulmonary edema, Acute hypoxemic respiratory failure, Acute dyspnea Forms Stand Alone Forms: My [facility] Prescriptions Prescriptions: No Action ATORVASTATIN (LIPITOR) 40 MG tablet 40 mg PO DAILY Qty: 0 CHLORTHALIDONE (HYGROTON) 25 MG tablet 25 mg PO QAM Qty: 0 Clopidogrel (Plavix) 75 MG tablet 75 mg PO DAILY Qty: 0 Nortriptyline (Pamelor) 50 MG capsule 50 mg PO HS Qty: 0 POTASSIUM CHLORIDE MICROENCAPS (POTASSIUM CHLORIDE ER) 20 MEQ tablet 20 meq PO DAILY Qty: 0 ASPIRIN (ASPIRIN EC) 81 MG tablet 81 mg PO DAILY Qty: 0 CYANOCOBALAMIN (VITAMIN B12) 1,000 MCG tablet 500 mcg PO DAILY Qty: 0 FOLIC ACID (FOLVITE) 1 MG tablet 1 mg PO DAILY Qty: 0 IPRATROPIUM-ALBUTEROL (COMBIVENT RESPIMAT) 1 AER AER 1 puff Inhalation QID Qty: 0 LISINOPRIL (ZESTRIL) 20 MG tablet 20 mg PO DAILY Qty: 0 VENLAFAXINE HCL (VENLAFAXINE HCL ER) 37.5 MG tablet 37.5 mg PO DAILY Qty: 0 Patient Comments: TAKE ONE 37.5 MG TABLET ALONG WITH ONE 150 MG TABLET TO EQUAL 187.5 MG DOSE VENLAFAXINE HCL (VENLAFAXINE HCL ER) 150 MG tablet 150 mg PO DAILY Qty: 0 Patient Comments: TAKE ONE 150 MG TABLET ALONG WITH ONE 37.5 MG TABLET TO EQUAL 187.5 MG DOSE Modafinil (Provigil) 100 MG tablet 100 mg PO DAILY Qty: 0 ALPRAZOLAM (XANAX) 0.25 MG tablet 0.25 mg PO TID PRN (Reason: Anxiety) 7 Days Qty: 21 0RF CARVEDILOL (COREG) 6.25 MG tablet 1 tab PO BID 90 Days Qty: 180 1RF Ciprofloxacin (Ciprofloxacin HCl) 500 MG tablet 1 tab PO BID 4 Days Qty: 14 0RF Referrals Referrals: Nury Reyes DO [Primary Care Provider] -
--- NOTE | 2024-08-01 13:23 | XRay Report ---
XR chest 1V portable CLINICAL HISTORY: Dyspnea TECHNIQUE: Single frontal radiograph of the chest was obtained. Comparison: Comparison is made to chest radiograph 11/18/2016 FINDINGS: Exam is limited by underpenetration. Cardiomegaly is noted. There is prominence and cephalization of the vasculature with Girish B lines seen. Small bilateral pleural effusions are seen with bilateral a irspace opacities. IMPRESSION: 1. Cardiomegaly and moderate pulmonary edema. 2. Small bilateral pleural effusions with underlying airspace opacities likely representing atelecta sis with or without superimposed aspiration/pneumonia. ACT 112: Negative or not required by law. Electronically signed by: Kiel Quintero M.D. 08/01/2024 1:22 PM
[2024-08-01 13:47] LABS: Base Excess VBG 20.9 mEq/L; HCO3 VBG 52 mmol/L; Oxygen Saturation VBG < 60.0 %; PCO2 VBG 97 mmHg (38-50); PO2 VBG 35 mmHg; pH VBG 7.34 (7.36-7.41)
[2024-08-01 13:59] LABS: Basophils # (auto) 0.06 K/uL (0.00-0.20); Basophils % (auto) 0.6 %; Eosinophils # (auto) 0.35 K/uL (0.00-0.50); Eosinophils % (auto) 3.4 %; Hematocrit (blood only) 38.8 % (37.0-47.0); Hemoglobin 11.2 g/dl (12.0-16.0); Immature Granulocytes # (auto) 0.04 K/uL (0.01-0.20); Immature Granulocytes % (auto) 0.4 %; Lymphocytes # (auto) 1.39 K/uL (1.20-3.40); Lymphocytes % (auto) 13.5 %; Mean Corpuscular Hemoglobin 27.3 pg (25.0-34.0); Mean Corpuscular Hgb Conc 28.9 g/dL (32.0-36.0); Mean Corpuscular Volume 94.4 fL (80.0-100.0); Monocytes % (auto) 7.7 %; Neutrophils # (auto) 7.69 K/uL (1.40-6.50); Neutrophils % (auto) 74.4 %; Platelet Count 286 K/uL (130-400); RDW Coefficient of Variation 13.9 % (11.5-14.5); RDW Standard Deviation 47.7 fL (36.4-46.3); Red Blood Count 4.11 M/uL (4.20-5.40); White Blood Count 10.33 K/ul (4.8-10.8)
[2024-08-01 14:15] LABS: Alanine Aminotransferase 19 U/L (7-52); Albumin Globulin Ratio 0.8 (0.9-2); Albumin Level 3.6 gm/dl (3.4-5.0); Alkaline Phosphatase 87 U/L (34-104); Aspartate Aminotransferase 25 U/L (13-39); BUN Creatinine Ratio 21.5 (10-20); Bilirubin,Total 0.6 mg/dl (0.2-1.0); Blood Urea Nitrogen 26 mg/dl (6-23); Calcium 9.3 mg/dl (8.6-10.3); Carbon Dioxide > 45 mmol/L (21-32); Chloride 93 mmol/L (98-107); Creatinine Clr Calc Pharmacy 61.1 ml/min; Globulin 4.3 gm/dl (2.5-4.0); Glucose 138 mg/dl (70-99(Fasting)); Magnesium 1.9 mg/dl (1.7-2.4); Potassium 4.7 mmol/L (3.5-5.1); Sodium 145 mmol/L (136-145); Total Protein 7.9 gm/dl (6.0-8.3)
[2024-08-01 14:19] LABS: Troponin I High Sensitivity 15.6 pg/ml (0-14)
[2024-08-01 14:20] LABS: Prothrombin Time 10.9 Seconds (9.0-12.0)
[2024-08-01] MEDS: FUROSEMIDE 40 MG/4 ML VIAL IV ONE (14:35)
[2024-08-01 14:36] LABS: Adenovirus PCR Not Detected (NotDetected); Bordetella parapertussis PCR Not Detected (NotDetected); Bordetella pertussis PCR Not Detected (NotDetected); Chlamydia pneumoniae PCR Not Detected (NotDetected); Coronavirus 229E PCR Not Detected (NotDetected); Coronavirus CoV-2 (COVID19)PCR Not Detected (NotDetected); Coronavirus HKU1 PCR Not Detected (NotDetected); Coronavirus NL63 PCR Not Detected (NotDetected); Coronavirus OC43PCR Not Detected (NotDetected); Human Metapneumovirus PCR Not Detected (NotDetected); Influenza A PCR Not Detected (NotDetected); Influenza B PCR Not Detected (NotDetected); Mycoplasma pneumoniae PCR Not Detected (NotDetected); Parainfluenza Virus 1 PCR Not Detected (NotDetected); Parainfluenza Virus 2 PCR Not Detected (NotDetected); Parainfluenza Virus 3 PCR Not Detected (NotDetected); Parainfluenza Virus 4 PCR Not Detected (NotDetected); Respiratory Syncytial VirusPCR Not Detected (NotDetected); Rhinovirus/Enterovirus PCR Not Detected (NotDetected)
[2024-08-01 15:59] LABS: HCO3 VBG 53 mmol/L; Oxygen Saturation VBG 73.7 %; PCO2 VBG 94 mmHg (38-50); PO2 VBG 46 mmHg; pH VBG 7.36 (7.36-7.41)
--- NOTE | 2024-08-01 16:10 | History & Physical Report ---
Date of Service August 01, 2024 Assessment & Plan (1) Acute exacerbation of CHF (congestive heart failure): (2) Chronic heart failure with preserved ejection fraction (HFpEF): (3) Pulmonary edema: (4) Right heart failure: (5) Obesity hypoventilation syndrome: (6) T2DM (type 2 diabetes mellitus): (7) Acute on chronic respiratory failure with hypoxia and hypercapnia: Plan This is a 64-year-old female who has significant past medical history of chronic respiratory failure with hypoxia and hypercapnia on 4 L of oxygen, obesity hypoventilation syndrome, MADONNA on CPAP, chronic HFpEF, chronic right heart failure, HTN, HLD, methylenetetrahydrofolate reductase mutation, T2DM, morbid obesity, CKD stage III, peripheral neuropathy, depression with anxiety who presents to ED secondary to shortness of breath for a few days. #Acute on Chronic Hypoxic/Hypercapnic respiratory failure #Acute on chronic HFpEF #Right heart failure #obesity hypoventilation syndrome #Elevated troponin #MADONNA on bipap admit to PCU continue bipap, wean to NC as tolerated received 80mg IV lasix in ED place rizzo cath, I and O, daily weight Lasix 40mg IV BID Obtain echo #T2DM last a1c 6.4 9 months ago noncompliant with metformin due to ADR Novolog and accuchecks per protocol #HTN continue lisinopril/coreg #HLD continue statin #Morbid Obesity, BMI 58.1 encourage diet/lifestyle modifications #DVT ppx: SQ Lovenox FULL CODE PCP: Dr. Lauren Dispo: admit to PCU ,PT/OT, daughter expressed wishes for a walker at discharge to switch oxygen companies they currently use due to difficulty obtaining equipment Pt was seen and examined in collaboration with Dr. Meléndez, please see addendum I spent a total of 76 minutes reviewing notes, outpatient records, labs, medication, coordinating, documenting and providing care for this patient excluding time spent in the performance of separately billed services. History of Present Illness Chief Complaint: SOB x few days. Primary Care Provider: Nury Reyes DO This is a 64-year-old female who has significant past medical history of chronic respiratory failure with hypoxia and hypercapnia on 4 L of oxygen, obesity hypoventilation syndrome, MADONNA on CPAP, chronic HFpEF, chronic right heart failure, HTN, HLD, methylenetetrahydrofolate reductase mutation, T2DM, morbid obesity, CKD stage III, peripheral neuropathy, depression with anxiety who presents to ED secondary to shortness of breath for a few days. Her daughter and [id number] are at bedside. They report patient has been more short of breath for the few days. She also reports increased swelling to her lower extremities. She is unsure if she has had weight gain as she does not weigh herself. She also reports that her oxygen was not working at home. She denies any fever, chills, sweats, lightheadedness, dizziness, chest pain, cough, hemoptysis, nausea, vomiting or abdominal pain. She denies any change in her bowel or urinary habits. She did report chest pressure when she was en route, but this has since subsided. She did start taking her torsemide the last few days, she reports, "2 pills," without much improvement in her swelling. In ED patient was hypoxic requiring BiPAP therapy. Her initial VBG revealed a pH of 7.34 and a CO2 of 94. She received 80 mg of IV Lasix. Her BNP was elevated at 748, troponin 15. According to family members at bedside they felt she was more confused this morning, but after being on BiPAP therapy they feel she is back to her baseline. Allergies Allergy/AdvReac Type Severity Reaction Status Date / Time Penicillins Allergy Unknown Verified 08/01/24 15:13 Home Medications Medication Instructions Recorded Confirmed Type atorvastatin 40 mg tablet 40 mg PO DAILY 08/01/24 08/01/24 History carvedilol 6.25 mg tablet 6.25 mg PO BID 08/01/24 08/01/24 History cholecalciferol (vitamin D3) 125 125 mcg PO DAILY 08/01/24 08/01/24 History mcg (5,000 unit) tablet (Vitamin D3) clopidogrel 75 mg tablet 75 mg PO DAILY 08/01/24 08/01/24 History fluticasone fur. 100 mcg-umeclid 1 inh inhalation DAILY 08/01/24 08/01/24 History 62.5 mcg-vilant 25 mcg inhalat.powder (Trelegy Ellipta) lisinopril 20 mg tablet 20 mg PO DAILY 08/01/24 08/01/24 History torsemide 10 mg tablet 20 mg PO DAILY PRN swelling 08/01/24 08/01/24 History Past Med/Surg History Problem List (Updated 08/01/24 @ 16:20 by Stella Delgado PA-C) Acute on chronic respiratory failure with hypoxia and hypercapnia Acute dyspnea (Acute) Acute hypoxemic respiratory failure (Acute) Pulmonary edema (Acute) Acute exacerbation of CHF (congestive heart failure) (Acute) Hypokalemia (Chronic) History of hysterectomy (Chronic) Acute respiratory failure with hypoxia and hypercarbia (Acute) Pleural effusion (Acute) SOB (shortness of breath) Medical History (Updated 08/01/24 @ 16:20 by Stella Delgado PA-C) T2DM (type 2 diabetes mellitus) Right heart failure Chronic heart failure with preserved ejection fraction (HFpEF) Obesity hypoventilation syndrome HTN (hypertension) CVA (cerebral vascular accident) Dyslipidemia Depression with anxiety MTHFR mutation Surgical History (Updated 08/01/24 @ 16:07 by Stella Delgado PA-C) Hx of tubal ligation Hx of cholecystectomy Family History (Updated 08/01/24 @ 16:06 by Stella Delgado PA-C) Other Diabetes Social History (Updated 08/01/24 @ 16:06 by Stella Delgado PA-C) Smoking Status: Former smoker Hx Alcohol Use: No Hx Substance Use: No Preferred Language: Uzbek Communication Ability: Impaired Communication Ability Comment: pt on bipap Feels Safe at Home: Yes Review of Systems Review of Systems: All systems reviewed & are unremarkable except as noted in HPI & below Physical Exam Physical Exam: Constitutional: Morbidly obese F, in bed,on bipap, vitals as above, NAD, sitting up in bed, pleasant, conversing easily Head: Normocephalic, Atraumatic Eyes: PERRL, conjunctivae normal, anicteric sclerae ENMT: external ear and nose normal, erythematous face, oropharynx normal Neck: trachea midline, no thyromegaly normal visual inspection Respiratory: +bipap, normal respiratory effort, lungs clear to auscultation with b/l rhonchi, no w/r. Normal insp/exp effort, no accessory muscle use Cardiovascular: RRR, no murmur, b/l obese ++edema Vessels: no JVD or carotid bruit Chest: normal inspection of chest Abdomen: +obese abd but soft, NT, o hepatosplenomegaly Musculoskeletal: no cyanosis or clubbing, extremities motor strength 5/5 Skin: facial erythema and petechia, poor foot care, warm and dry normal turgor Neurologic: PERRL, EOMI, accommodation nl, no face palsy, no dysarthria CN's II-XI intact bilaterally and moves all extremities Psychiatric: A+Ox3, euthymic affect Lymphatic: no cervical or axillary lymphadenopathy : deferred Results & Data Results & Data Vital Signs (Past 12 Hours) Vital Signs Temp Pulse Pulse Resp BP BP Pulse Ox 08/01/24 14:04 70 16 97 08/01/24 14:00 75 18 137/71 94 08/01/24 13:15 68 08/01/24 12:54 08/01/24 12:45 36.5 C 64 22 153/84 H 89 L O2 Del Method O2 Flow Rate FiO2 08/01/24 14:04 40 08/01/24 14:00 BiPAP 08/01/24 13:15 08/01/24 12:54 Nasal Cannula 6 08/01/24 12:45 Nasal Cannula 6 Laboratory Results I have independently reviewed and interpreted patient's admitting labs including CBC, CMP, procal, trop, bnp, resp biofire Diagnostic Findings Chest X-Ray 08/01/24 12:54 XR chest 1V portable CLINICAL HISTORY: Dyspnea TECHNIQUE: Single frontal radiograph of the chest was obtained. Comparison: Comparison is made to chest radiograph 11/18/2016 FINDINGS: Exam is limited by underpenetration. Cardiomegaly is noted. There is prominence and cephalization of the vasculature with Girish B lines seen. Small bilateral pleural effusions are seen with bilateral airspace opacities. IMPRESSION: 1. Cardiomegaly and moderate pulmonary edema. 2. Small bilateral pleural effusions with underlying airspace opacities likely representing atelectasis with or without superimposed aspiration/pneumonia. ACT 112: Negative or not required by law. Electronically signed by: Kiel Quintero M.D. 08/01/2024 1:22 PM Medications Administered Medication List Discontinued Medications Furosemide (Furosemide 40 Mg/4 Ml Vial) 80 mg IV ONE ONE Stop: 08/01/24 14:23 Last Admin: 08/01/24 14:35 Dose: 80 mg Documented By: MISAEL ECG Additional Comments: I have independently reviewed and interpreted patient's admitting EKG which revealed: 69 NSR, qtc 437ms COVID-19 Results Results COVID-19 Adm Lab Results: RBC 4.11 M/uL (4.20-5.40) L 08/01/24 WBC 10.33 K/ul (4.8-10.8) 08/01/24 Hgb 11.2 g/dl (12.0-16.0) L 08/01/24 Hct 38.8 % (37.0-47.0) 08/01/24 Plt Count 286 K/uL (130-400) 08/01/24 Neutrophils (%) (Auto) 74.4 % 08/01/24 Lymphocytes (%) (Auto) 13.5 % 08/01/24 Monocytes # (Auto) 0.80 K/uL (0.11-0.59) H 08/01/24 Eosinophils # (Auto) 0.35 K/uL (0.00-0.50) 08/01/24 Neutrophils # (Auto) 7.69 K/uL (1.40-6.50) H 08/01/24 Lymphocytes # (Auto) 1.39 K/uL (1.20-3.40) 08/01/24 Monocytes # (Auto) 0.80 K/uL (0.11-0.59) H 08/01/24 Eosinophils # (Auto) 0.35 K/uL (0.00-0.50) 08/01/24 Basophils # (Auto) 0.06 K/uL (0.00-0.20) 08/01/24 Immature Granulocyte # (Auto) 0.04 K/uL (0.01-0.20) 5 Na 145 mmol/L (136-145) 08/01/24 K 4.7 mmol/L (3.5-5.1) 08/01/24 Cl 93 mmol/L (98-107) L 08/01/24 CO2 > 45 mmol/L (21-32) H* 08/01/24 Anion Gap TNP 08/01/24 BUN 26 mg/dl (6-23) H 08/01/24 Creatinine 1.21 mg/dl (0.6-1.2) H 08/01/24 BUN/Creatinine Ratio 21.5 (10-20) H 08/01/24 Glucose Level 138 mg/dl (70-99(Fasting)) H 08/01/24 Ca 9.3 mg/dl (8.6-10.3) 08/01/24 Total Bilirubin 0.6 mg/dl (0.2-1.0) 08/01/24 AST/SGOT 25 U/L (13-39) 08/01/24 ALT/SGPT 19 U/L (7-52) 08/01/24 Alkaline Phosphatase 87 U/L (34-104) 08/01/24 Total Protein 7.9 gm/dl (6.0-8.3) 08/01/24 Albumin 3.6 gm/dl (3.4-5.0) 08/01/24 Globulin 4.3 gm/dl (2.5-4.0) H 08/01/24 Albumin/Globulin Ratio 0.8 (0.9-2) L 08/01/24 Procalcitonin 0.04 ng/ml (0-0.5) 08/01/24 INR 1.0 (0.9-1.1) 08/01/24 Adenovirus (PCR) Not Detected (NotDetected) 08/01/24 B. parapertussis DNA (PCR) Not Detected (NotDetected) 07/23 B. pertussis DNA (PCR) Not Detected (NotDetected) 08/01/24 C. pneumoniae DNA (PCR) Not Detected (NotDetected) 5 Coronavirus Type OC43 (PCR) Not Detected (NotDetected) 05/16 Coronavirus Type HKU1 (PCR) Not Detected (NotDetected) 05/16 Coronavirus Type 229E (PCR) Not Detected (NotDetected) 05/16 COVID-19 PCR Not Detected (NotDetected) 08/01/24 Coronavirus Type NL63 (PCR) Not Detected (NotDetected) 05/16 Human Metapneumovirus (PCR) Not Detected (NotDetected) 05/16 Influenza Virus Type A (PCR) Not Detected (NotDetected) Influenza Virus Type B (PCR) Not Detected (NotDetected) M. pneumoniae (PCR) Not Detected (NotDetected) 08/01/24 Parainfluenza Type 1 (PCR) Not Detected (NotDetected) 07/23 Parainfluenza Type 2 (PCR) Not Detected (NotDetected) 07/23 Parainfluenza Type 3 (PCR) Not Detected (NotDetected) 07/23 Parainfluenza Type 4 (PCR) Not Detected (NotDetected) 07/23 RSV (PCR) Not Detected (NotDetected) 08/01/24 Enterovirus/Rhinovirus (PCR) Not Detected (NotDetected) Chest X-Ray 08/01/24 Code Status & VTE Plan Code Status FULL CODE VTE Prophylaxis Plan VTE Prophylaxis will be ordered: Yes Supervising Physician Co-Signing Physician Notes Attending Addendum: Case reviewed with the advanced practitioner. I have personally performed a history and physical examination on the patient. I have reviewed the advanced practitioner's documentation on the date of service referenced in note, and I agree with, and take responsibility for the plan of care. please refer to her notes for full details patient seen and examined, records reviewed by myself as well on exam, patient seen resting in bed, comfortable on Bipap states breathing is starting to improve no other symptoms VS noted and reviewed oriented x3, not in distress, speaks in sentences with no effort nor accessory muscle use normal rate, regular rhythm, no murmurs mild rales BL non distended, soft, nontender gr 1 lower extremity edema, erythema, warmth no neuro deficits all labs, imaging noted and reviewed ASSESSMENT AND PLAN> ACUTE HYPER CAPNEIC RESPIRATORY FAILURE ACUTE ON CHRONIC CHFpEF EXACERBATION MORBID OBESITY, LIKELY OBESITY HYPOVENTILATION SYNDROME PH 7.3, CO2 97, HCO3 52 seems to be improving since Lasix IV, Bipap started at the ER continue with Lasix 40mg IV BID continue Bipap cardiology consult other diagnoses and plan of care as per advanced practitioner's notes Harley Meléndez MD
[2024-08-01 17:25] LABS: Appearance Urine Clear (Clear); Bacteria Urine Automated None Seen (None Seen); Bilirubin Urine Negative (Negative); Blood Urine 1+ (Negative); Color Urine Yellow; Epithelial Cell Urine Auto 0-2 /hpf (0-2); Glucose Urine UA Negative (Negative); Ketones Urine Negative (Negative); Leukocyte Esterase Urine Negative (Negative); Nitrite Urine Negative (Negative); Protein Urine Negative (Negative); RBC Urine Automated 0-2 /hpf (0-2); Specific Gravity Urine 1.007 (1.000-1.030); Urobilinogen Urine Negative (Negative); WBC Urine Automated 0-5 /hpf (0-5)
--- NOTE | 2024-08-01 17:52 | Electrocardiogram Report ---
Test Reason : Blood Pressure : */* mmHG Vent. Rate : 69 BPM Atrial Rate : 69 BPM P-R Int : 170 ms QRS Dur : 82 ms QT Int : 408 ms P-R-T Axes : 58 29 52 degrees QTcB Int : 437 ms Normal sinus rhythm Low voltage QRS Cannot rule out Anterior infarct , age undetermined Abnormal ECG When compared with ECG of 18-Nov-2016 07:07, No significant change was found Confirmed by Haseeb Griffith ([id number]) on 08/01/2024 5:52:11 PM Referred By: REFERRED SELF Confirmed By: Haseeb Griffith
[2024-08-01] MEDS ORDERED: FAMOTIDINE 20 MG TAB PO PRN (17:55)
[2024-08-01] MEDS ORDERED: GLUCAGON FOR INJ 1 MG VIAL SQ PRN (17:55)
[2024-08-01] MEDS ORDERED: GLUCOSE 10 TAB/TUBE PO PRN (17:55)
[2024-08-01] MEDS ORDERED: POLYETHYLENE (MIRALAX) 17 GM PACK PO PRN (17:55)
[2024-08-01] MEDS ORDERED: CARBOHYDRATES FOR HYPOGLYCEMIA PO PRN (17:55)
[2024-08-01] MEDS ORDERED: ONDANSETRON INJ 2 MG/ML 2 ML VIAL IV PRN (17:55)
[2024-08-01] MEDS ORDERED: GLUCOSE 40% GEL 15 GM TUBE PO PRN (17:55)
[2024-08-01] MEDS ORDERED: DEXTROSE 50% 50 ML SYRINGE IV PRN (17:55)
[2024-08-01] MEDS: INSULIN ASPART PER UNIT CHARGE SC SCH (18:32)
[2024-08-01] MEDS: carvediloL 6.25 MG TAB PO SCH (18:32)
--- OUTSIDE RECORDS SUMMARY | 2024-08-01 20:12 | External Medical Summary | Summary of Care ---
Author Name Unknown Organization [facility] Address [address] [facility] [facility] [place] [address] Phone [phone] Care Team Providers Care [employer] Name Role Phone Rosa Lauren MD Primary Care Provider Encounter Details Date Type Department Care Team (Late st Contact Info) Description 04/09/2024 Telephone Family Practice [facility] [address] [place] [phone] Rosa Lauren MD [address] [facility] [place] [address] Allergies Active Allergy Reactions Criticality Noted Date Comments Penicillins 03/23/1999 documented as of this encounter (statuses as of 04/09/2024) Medications Medication Sig Dispensed Refills Start Date End Date Status DEPEND UNDERWEAR LARGE MISCIndications:Unspe cified urinary incontinence use 3 times a day as needed 1 Box 5 10/12/2010 Active Albuterol Sulfate (ALBUTEROL HFA) 108 (90 BASE) MCG/ACT inhaler Inhale 2 Puffs by mouth every 4 hours as needed for Shortness of Breath or Wheezing. 18 g 11 02/02/2020 Active Respiratory Therapy Supplies (NEBULIZER/TUBING/TAMI THPIECE) KIT Use every 4 hour with nebulizer. 1 Kit 02/02/2020 Active Respiratory Therapy Supplies (NEBULIZER) EDVIN EVERY 4 HOURS NEEDED 1 Each 02/03/2020 Active albuterol sulfate (PROVENTIL) (2.5 MG/3ML) 0.083% nebulizer solution Inhale 1 Vial via nebulizer every 4 hours as needed for Wheezing. , use in place of rescue inhaler. 360 mL 1 02/03/2020 Active Loratadine 10 MG Oral Tablet (Claritin) take 1 tablet by mouth once daily 90 Tab 1 03/29/2021 Active Carvedilol 6.25 MG Oral Tablet (Coreg) Take 1 Tablet by mouth 2 times a day. 180 Tablet 3 08/05/2021 Active Vitamin D (Ergocalciferol) 1.25 MG (16386 UT) Oral CapsuleIndications:Vi tamin D deficiency Take by mouth 1 Capsule once a week . for 4 weeks. Then one capsule a month for 5 months. 9 Capsule 03/09/2022 Active D-Care Glucometer w/Device KitIndications:Type 2 diabetes mellitus without complication, without long-term current use of insulin (HCC) Use as directed . Once daily 1 Kit 03/09/2022 Active LancetsIndications:Ty pe 2 diabetes mellitus without complication, without long-term current use of insulin (HCC) Use as directed. 100 Each 11 03/09/2022 Active Glucose Blood In Vitro StripIndications:Type 2 diabetes mellitus without complication, without long-term current use of insulin (HCC) Use as directed once daily. 100 Strip 11 03/09/2022 Active metFORMIN HCl ER 500 MG Oral Tablet Extended Release 24 Hour (Glucophage XR)Indications:Type 2 diabetes mellitus without complication, without long-term current use of insulin (HCC) take 1 tablet by mouth once daily with a meal 90 Tablet 1 03/22/2022 Active Lisinopril 20 MG Oral Tablet (Prinivil)Indications :Essential hypertension with goal blood pressure less than 140/90 take 1 tablet by mouth once daily 90 Tablet 1 03/29/2022 Active Folic Acid 1 MG Oral Tablet take 1 tablet by mouth once daily 90 Tablet 1 05/06/2022 Active Clopidogrel Bisulfate 75 MG Oral Tablet (pLAVix)Indications:C erebrovascular accident, old take 1 tablet by mouth once daily 90 Tablet 3 09/18/2023 Active Clobetasol Propionate 0.05 % External Ointment (Temovate)Indications :Rash and nonspecific skin eruption Apply topically to affected area 2 times a day. Apply to rash on arms. For up to two weeks. 30 g 10/01/2023 Active oxygen IN GASIndications:COPD, group B, by GOLD 2017 classification ([facility]) Use 3 L/min(Oxygen) as directed daily. 3LPM during the day. 4LPM bled through bipap 1 Each 10/07/2023 Active Atorvastatin Calcium 40 MG Oral Tablet (Lipitor)Indications: Dyslipidemia, goal LDL below 100 Take 1 Tablet by mouth in the morning. 90 Tablet 3 11/02/2023 Active Trelegy Ellipta 100-62.5-25 MCG/ACT Aerosol Powder Breath Activated (Fluticasone-Umeclidi nium-Vilanterol)Indic ations:COPD, group B, by GOLD 2017 classification ([facility]) USE 1 INHALATION BY MOUTH ONCE DAILY 180 Each 3 02/25/2024 Active Torsemide 10 MG Oral Tablet (Demadex)Indications: Heart failure, diastolic, due to HTN ([facility]),Chronic right heart failure ([facility]) TAKE 1 TABLET BY MOUTH ONCE DAILY MAY TAKE ADDITIONAL TABLET DAILY NEEDED FOR SWELLING OR INCREASED SHORTNESS OF BREATH 200 Tablet 2 03/06/2024 Active Hospital, Clinic, or Other Facility Administered Medication Ordered Dose Route Frequency Start Date End Date Status albuterol sulfate (PROVENTIL) (2.5 MG/3ML) 0.083% inhalation solution 2.5 mgIndications:MDAONNA and COPD overlap syndrome ([facility]),Pulmonary emphysema, unspecified emphysema type ([facility]) 2.5 mg NEBULIZER Q4H PRN 10/03/2017 Acti ve albuterol sulfate (PROVENTIL) (2.5 MG/3ML) 0.083% inhalation solution 2.5 mgIndications:KITCHEN (dyspnea on exertion),Former tobacco use,COPD, severity to be determined ([facility]) 2.5 mg NEBULIZER Q4H PRN 09/02/2018 Active documented as of this encounter (statuses as of 04/09/2024) Active Problems Problem Noted Date Diagnosed Date Diabetes mellitus without complication 2 Stage 3a chronic kidney disease 05/31/2020 Overview: Per CKD protocol Body mass index (BMI) of 50.0 to 59.9 in adult 0 11/03/2019 Overview: Per Obesity protocol - Per Obesity protocol - - MADONNA (obstructive sleep apnea) 08/06/2019 Obesity hypoventilation syndrome 08/06/2019 COPD, group B, by GOLD 2017 classification 12/30 Overview: Per COPD GOLD Classification Nonrheumatic aortic valve insufficiency 06/26/20 18 Overview: Mild Chronic respiratory failure with hypercapnia 03/2018 Vitamin B12 deficiency 05/31/2018 Chronic right heart failure 01/29/2018 Heart failure, diastolic, due to HTN 11/29/2016 Morbid obesity due to excess calories 11/29/2016 Hypokalemia 04/25/2013 Overview: K+ 3.0 Cervical disc disorder with myelopathy 2 Overview: right arm went numb seen in [facility] ER Generalized anxiety disorder 05/04/2011 Vitamin D deficiency 09/24/2009 Overview: Vitamin D 7.9 DYSLIPIDEMIA, GOAL LDL BELOW 100 06/29/2009 Overview: Per Lipid Taxonomy. 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 0 to 49.9 in adult 03/03/2019 11/06/2019 Overview: Per Obesity protocol - - Kidney disease, chronic, sta ge III (GFR 30-59 ml/min) 09/30/2018 06/03/2020 Overview: Per CKD protocol #1 Body mass index (BMI) of 40. 0 to 44.9 in adult 09/30/2018 03/06/2019 Overview: Per Obesity protocol #1 - Body mass index (BMI) of 45. 0 to 49.9 in adult 06/03/2018 10/01/2018 Overview: Per Obesity protocol #1 Noncompliance with CPAP treatment 05/31/2018 06/30/2019 COPD exacerbation 05/31/2018 09/29/2019 Respiratory failure requiring intubation 06/29/2016 12/15/2016 Overview: [facility] DM type 2 causing renal disease 07/11/2010 01/01/2012 Obesity, morbid (more than 1 00 lbs over ideal weight or BMI > 40) 10/19/2009 02/05/2012 Overview: Per Obesity Taxonomy ICD-10 update of inactive term HTN, goal below 130/80 08/18/200904/28 Overview: Modified per HTN Taxonomy. HTN, GOAL BELOW 140/90 05/28/200908/18 Overview: Modified per HTN Taxonomy. Type 2 diabetes mellitus wit h hemoglobin A1c goal of less than 7.0% 05/20/2009 01/01/2012 Overview: Per Diabetes Taxonomy. ICD-10 update of inactive term Kidney disease, chronic, sta ge II (GFR 60-89 ml/min) 03/19/2009 10/01/2018 Sequela, post-stroke 01/07/2009 013 Overview: Modified per CVA protocol #8 Kidney disease, chronic, sta ge III (GFR 30-59 ml/min) 09/16/2007 03/19/2009 Overview: 26/1.4, GFR 43 Calculus of gallbladder with out mention of cholecystitis or obstruction 01/28/2007 02/05/2012 Open wound of trunk 04/02/2006 06/05/20 11 CVA 08/30/2005 02/18/2008 ADVANCE DIRECTIVE INFORMATION 07/28/2005 05/31/2018 Overview: No, Advance Directive brochure given to patient. Tobacco use disorder 018 OBESITY, UNSPECIFIED 010 Overview: Per Obesity Taxonomy Type 2 diabetes mellitus wit h hemoglobin A1c goal of less than 7.0% 05/20/2009 Overview: Per Diabetes Taxonomy. ICD-10 update of inactive term HTN, goal below 140/90 05/28 Overview: Modified per HTN Taxonomy. Mixed dyslipidemia Overview: Per Lipid Taxonomy. CHOL 169, HDL 39, LDL 111, TRIG 96 Sequelae, post-stroke 2008 Overview: Modified per CVA protocol #8 Diabetic polyneuropathy 12/21 Overview: ICD-10 update of inactive term BMI 40.0-44.9, adult 013 BMI 45.0-49.9, adult 018 HTN, goal below 140/80 10/23 Respiratory failure 05/31/20 18 Overview: hypercarbic MADONNA and COPD overlap syndrome 06/30/2019 MTHFR mutation 05/31/2018 Hypokalemia 09/28/2023 CHF (congestive heart failure) 05/31/2018 LVH (left ventricular hypertrophy) 09/02/2018 documented as of this encounter (statuses as of 04/09/2024) Immunizations Name Administration Dates Next Due Pneumococcal Conjugate Vacci ne, 20-valent ([id number]) 03/09/2022 Pneumococcal Polysaccharide PPV23 (Pneumovax) 01/24/2007 Seasonal Influenza, Quadriva lent, No Preserve, IM 07/06/2016 Seasonal Influenza, Trivalen t, (IIV3), with Preserv, (Fluzone) 04/06/2015,05/20/2013,05/27/2012,06/05,06/29/2010,04/19/2009 TDAP, Age 7 and older, IM (Adacel) 12/19/2007 documented as of this encounter Social History Tobacco Use Types Packs/Day Years Used Date Smoking Tobacco: Former Cigarettes 1.5 37 0 11/10/1979 - 11/09/2016 Smokeless Tobacco: Never Alcohol Use Standard Drinks/Week Comments No 0 (1 standard drink = 0.6 oz pur e alcohol) PHQ-2 Answer Date Recorded PHQ-2 Score 1 02/16/2020 Sex and Gender Information Value Date Recorded Sex Assigned at Female 02/16/2020 9:06 AM EDT Gender Identity Female 02/16/2020 9:06 AM EDT Sexual Orientation Straight 02/16/2020 9: 06 AM EDT Job Start Date Occupation Industry Not on file Not on file Not on file documented as of this encounter Miscellaneous Notes * Telephone Encounter - Tamiko Thomas LPN - 04/09/2024 4:26 PM EDT Taken care of * Telephone Encounter - Rosa Lauren MD - 04/09/2024 1:20 PM EDT Received letter from insurance regarding portable oxygen concentrator. We do not appear to have documentation of us requesting this for her Please check with patient to see if she is trying to get a portable oxygen concentrator If so the use of 1 is approved but she needs to use an in network provider documented in this encounter Plan of Treatment Upcoming Encounters Date Type Department Care Team (Late st Contact Info) Description 05/01/2024 10:40 AM EDT Office Visit Family [facility] [address] [place] [id number] Rosa Lauren MD [address] [place] [address] Health Maintenance Due Date Last Done Comments HIV Screening 01/23/1976 Alpha-1 Antitrypsin 1979 Colonoscopy 2006 Fecal Occult Blood Test 2006 Sigmoidoscopy 2006 Zoster Vaccines (1 of 2) 2011 Diabetic Foot Exam 06/05/2012 06/05/2011, 1 08/30/2009, 03/18/2009, Additional history exists DTap/Tdap Vaccines (2 - Td or Tdap) 12/18/2017 12/19/2007 Depression Monitoring 02/15/2021 02/16/2020 CKD PHOS USE SMARTSET 70344 03/01/202102/20, 10/01/2017, 06/02/2016, Additional history exists Mammogram 03/01/2021 03/01/2020, 03/23, 04/05/2016, Additional history exists Diabetic Eye Exam 03/09/2023 03/09/2022, (Done elsewhere), 08/24/2011, Additional history exists Albumin/Creatinine Ratio 10/20/2023 023, 06/03/2018, 10/01/2017, Additional history exists COVID-19 Vaccine ( season) 2024 Influenza Vaccine (FLU shot) (#1) 2024 07/06/2016, 04/06/2015, 05/20/2013, Additional history exists GFR 03/30/2024 09/28/2023, 07/23, 03/08/2020, Additional history exists HbA1c 03/30/2024 09/28/2023, 07/23, 03/01/2020, Additional history exists CKD HGB USE SMARTSET 10460 09/27/202409/27, 09/28/2023, 08/05/2021, Additional history exists O2 ASSESSMENT COMPLETED IN PAST YEAR FOR COPD 09/27/2024 09/28/2023 Cologuard 03/25/2025 03/25/2022 Colorectal Cancer Screening 03/25/2025 Lipid Panel 09/27/2028 09/28/2023, 07/23, 04/14/2019, Additional history exists Lung Cancer Screening Completed 09/01/2019, 019 Pneumococcal Vaccine: Pediatrics (0 to 5 Years) and At-Risk Patients (6 to 64 Years) Completed 03/09/2022, 01/24/2007 HPV (Gardasil) Vaccine Aged Out No lo nger eligible based on patient's age to complete this topic Hepatitis B Vaccine Aged Out No longe r eligible based on patient's age to complete this topic MENINGOCOCCAL (MENACTRA/MENVEO) Aged Out No longer eligible based on patient's age to complete this topic documented as of this encounter Medical Devices Not on filedocumented as of this encounter Care Teams [employer] Relationship Specialty Start Date End Date Rosa Lauren MD [address] [place] [phone] PCP - General Internal Medicine 09/28/23 documented as of this encounter
--- OUTSIDE RECORDS SUMMARY | 2024-08-01 20:12 | External Medical Summary | Summary of Care ---
Author Name Unknown Organization [facility] Address [address] [facility] [address] [facility] [address] Phone [phone] Care Team Providers Care Manager Of Procurement Name Role Phone Kaushal Lauren MD Primary Care Provider Reason for Visit * Reason Comments eRx-Medication Refill Encounter Details Date Type Department Care Team (Late st Contact Info) Description 02/23/2024 Refill Family Practice [facility] [address] [place] [address] Kaushal Lauren MD [address] [place] [address] COPD, group B, by GOLD 2017 classification ([facility]) Allergies Active Allergy Reactions Criticality Noted Date Comments Penicillins 03/23/1999 documented as of this encounter (statuses as of 02/25/2024) Medications Medication Sig Dispensed Refills Start Date End Date Status DEPEND UNDERWEAR LARGE MISCIndications:Uns pecified urinary incontinence use 3 times a day as needed 1 Box 5 1 Active Albuterol Sulfate (ALBUTEROL HFA) 108 (90 BASE) MCG/ACT inhaler Inhale 2 Puffs by mouth every 4 hours as needed for Shortness of Breath or Wheezing. 18 g 11 0 Active Respiratory Therapy Supplies (NEBULIZER/TUBING/M OUTHPIECE) KIT Use every 4 hour with nebulizer. 1 Kit 0 Active Respiratory Therapy Supplies (NEBULIZER) EDVIN EVERY 4 HOURS NEEDED 1 Each 0 Active albuterol sulfate (PROVENTIL) (2.5 MG/3ML) 0.083% nebulizer solution Inhale 1 Vial via nebulizer every 4 hours as needed for Wheezing. , use in place of rescue inhaler. 360 mL 1 0 Active Loratadine 10 MG Oral Tablet (Claritin) take 1 tablet by mouth once daily 90 Tab 1 1 Active Carvedilol 6.25 MG Oral Tablet (Coreg) Take 1 Tablet by mouth 2 times a day. 180 Tablet 3 2 Active Vitamin D (Ergocalciferol) 1.25 MG (53241 UT) Oral CapsuleIndications: Vitamin D deficiency Take by mouth 1 Capsule once a week . for 4 weeks. Then one capsule a month for 5 months. 9 Capsule 2 Active D-Care Glucometer w/Device KitIndications:Type 2 diabetes mellitus without complication, without long-term current use of insulin (HCC) Use as directed . Once daily 1 Kit 2 Active LancetsIndications: Type 2 diabetes mellitus without complication, without long-term current use of insulin (HCC) Use as directed. 100 Each 11 2 Active Glucose Blood In Vitro StripIndications:Ty pe 2 diabetes mellitus without complication, without long-term current use of insulin (HCC) Use as directed once daily. 100 Strip 11 2 Active metFORMIN HCl ER 500 MG Oral Tablet Extended Release 24 Hour (Glucophage XR)Indications:Type 2 diabetes mellitus without complication, without long-term current use of insulin (HCC) take 1 tablet by mouth once daily with a meal 90 Tablet 1 2 Active Lisinopril 20 MG Oral Tablet (Prinivil)Indicatio ns:Essential hypertension with goal blood pressure less than 140/90 take 1 tablet by mouth once daily 90 Tablet 1 2 Active Folic Acid 1 MG Oral Tablet take 1 tablet by mouth once daily 90 Tablet 1 2 Active Clopidogrel Bisulfate 75 MG Oral Tablet (pLAVix)Indications :Cerebrovascular accident, old take 1 tablet by mouth once daily 90 Tablet 3 4 Active Torsemide 10 MG Oral Tablet (Demadex)Indication s:Heart failure, diastolic, due to HTN (HCC),Chronic right heart failure (HCC) take 1 tablet by mouth once daily MAY TAKE ADDITIONAL TABLET DAILY NEEDED FOR SWELLING OR INCREASED SHORTNESS OF BREATH 120 Tablet 3 4 Active Clobetasol Propionate 0.05 % External Ointment (Temovate)Indicatio ns:Rash and nonspecific skin eruption Apply topically to affected area 2 times a day. Apply to rash on arms. For up to two weeks. 30 g 4 Active oxygen IN GASIndications:COPD , group B, by GOLD 2017 classification ([facility]) Use 3 L/min(Oxygen) as directed daily. 3LPM during the day. 4LPM bled through bipap 1 Each 4 Active Atorvastatin Calcium 40 MG Oral Tablet (Lipitor)Indication s:Dyslipidemia, goal LDL below 100 Take 1 Tablet by mouth in the morning. 90 Tablet 3 4 Active Trelegy Ellipta 100-62.5-25 MCG/ACT Aerosol Powder Breath Activated (Fluticasone-Umecli dinium-Vilanterol)I ndications:COPD, group B, by GOLD 2017 classification ([facility]) USE 1 INHALATION BY MOUTH ONCE DAILY 180 Each 3 4 Active Trelegy Ellipta 100-62.5-25 MCG/ACT Aerosol Powder Breath Activated (Fluticasone-Umecli dinium-Vilanterol)I ndications:COPD, group B, by GOLD 2017 classification ([facility]) USE 1 INHALATION BY MOUTH ONCE DAILY 90 Each 3 4 02/25/20 24 Discontinued Hospital, Clinic, or Other Facility Administered Medication Ordered Dose Route Frequency Start Date End Date Status albuterol sulfate (PROVENTIL) (2.5 MG/3ML) 0.083% inhalation solution 2.5 mgIndications:MADONNA and COPD overlap syndrome ([facility]),Pulmonary emphysema, unspecified emphysema type ([facility]) 2.5 mg NEBULIZER Q4H PRN 10/03/2017 Acti ve albuterol sulfate (PROVENTIL) (2.5 MG/3ML) 0.083% inhalation solution 2.5 mgIndications:KITCHEN (dyspnea on exertion),Former tobacco use,COPD, severity to be determined ([facility]) 2.5 mg NEBULIZER Q4H PRN 09/02/2018 Active documented as of this encounter (statuses as of 02/25/2024) Active Problems Problem Noted Date Diagnosed Date [...] GOLD Classification Nonrheumatic aortic valve insufficiency 06/26/20 Overview: Mild Chronic respiratory failure with hypercapnia 03/2018 Vitamin B12 deficiency 05/31/2018 Chronic right heart failure 01/29/2018 Heart failure, diastolic, due to HTN 11/29/2016 Morbid obesity due to excess calories 11/29/2016 Hypokalemia 04/25/2013 Overview: K+ 3.0 Cervical disc disorder with myelopathy 2 Overview: right arm went numb seen in [facility] Generalized anxiety disorder 05/04/2011 Vitamin D deficiency [...] as of this encounter (statuses as of 02/25/2024) Resolved Problems Problem Noted Date Diagnosed Date [...] Respiratory failure requiring intubation 06/29/2016 12/15/2016 Overview: [facility] DM type 2 causing renal disease 07/11/2010 [...] Overview: Modified per HTN Taxonomy. Mixed dyslipidemia 9 Overview: Per Lipid Taxonomy. CHOL 169, HDL [...] as of this encounter (statuses as of 02/25/2024) Immunizations Name Administration Dates Next Due Pneumococcal Conjugate Vacci ne, 20-valent ([id number]) 03/09/2022 Pneumococcal Polysaccharide PPV23 (Pneumovax) 01/24/2007 Seasonal Influenza, Quadriva lent, No Preserve, IM 07/06/2016 Seasonal Influenza, Split, I IV3, With Preserve, Inj 04/06/2015,05/20/2013,05/27/2012,06/05,06/29/2010,04/19/2009 TDAP, Age 7 and older, IM [...] encounter Miscellaneous Notes * Telephone Encounter - Williams Vang RPh - 02/25/2024 9:43 AM EDTSigned Prescriptions: Disp Refills Trelegy Ellipta 100-62.5-25 MCG/ACT Aeroso*180 Ea*3 Sig: USE 1 INHALATION BY MOUTH ONCE DAILYAuthorizing Provider: KAUSHAL LAUREN User: WILLIAMS VANG documented in this encounter Plan of Treatment Upcoming Encounters Date Type Department Care Team (Late st Contact Info) Description 03/31/2024 11:00 AM EDT Office Visit Family Practice [facility] [address] [place] [address] Kaushal Lauren MD [address] [place] [address] Health Maintenance Due Date Last Done Comments HIV Screening 01/23/1975 Alpha-1 Antitrypsin 1979 Colonoscopy 2006 Fecal Occult Blood Test 2006 Sigmoidoscopy 2006 Zoster Vaccines (1 of 2) 2011 Diabetic Foot Exam 06/05/2012 06/05/2011, 1 08/30/2009, 03/18/2009, Additional history exists DTaP,Tdap,and Td Vaccines (2 - Td or Tdap) 12/18/2017 12/19/2007 Depression Monitoring 02/15/2021 02/16/2020 CKD PHOS USE SMARTSET 30748 03/01/202102/20, 10/01/2017, 06/02/2016, Additional history exists Mammogram 03/01/2021 03/01/2020, 03/23, 04/05/2016, Additional history exists Diabetic Eye Exam 03/09/2023 03/09/2022, (Done elsewhere), 08/24/2011, Additional history exists COVID-19 Vaccine ( season) 2023 Albumin/Creatinine Ratio 10/20/20232 023, 06/03/2018, 10/01/2017, Additional history exists Influenza Vaccine (FLU shot) (#1) 2024 07/06/2016, 04/06/2015, 05/20/2013, Additional history exists GFR 03/30/2024 09/28/2023, 07/23, 03/08/2020, Additional history exists HbA1c 03/30/2024 09/28/2023, 07/23, 03/01/2020, Additional history exists CKD HGB USE SMARTSET 32865 09/27/202409/27, 09/28/2023, 08/05/2021, Additional history exists O2 [...] Not on filedocumented as of this encounter Visit Diagnoses Diagnosis COPD, group B, by GOLD 2017 classification (HCC) documented in this encounter Care Teams Manager Of Procurement Relationship Specialty Start Date End Date Kaushal Lauren MD [address] [place] [id number] PCP - General Internal Medicine 09/28/23 documented as of this encounter
--- OUTSIDE RECORDS SUMMARY | 2024-08-01 20:12 | External Medical Summary | Summary of Care ---
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 Name Role Phone Rosa Lauren MD Primary Care Provider Reason for Visit * Reason Comments eRx-Medication Refill Encounter Details Date Type Department Care Team (Late st Contact Info) Description 05/15/2024 Refill Cardiology, [facility] [address] [place] [id number] Rea Horn PA-C [address] [place] [id number] Cerebrovascular accident, old Allergies Active Allergy Reactions Criticality Noted Date Comments Penicillins 03/23/1999 documented as of this encounter (statuses as of 05/19/2024) Medications Medication Sig Dispensed Refills Start Date [...] 2 Active Vitamin D (Ergocalciferol) 1.25 MG (18192 UT) Oral CapsuleIndications: Vitamin D deficiency Take by mouth 1 Capsule once a week . for 4 weeks. Then one capsule a month for 5 months. 9 Capsule 2 Active D-Care Glucometer w/Device KitIndications:Type 2 diabetes mellitus without complication, without long-term current use of insulin ([facility]) Use as directed . Once daily 1 Kit 2 Active LancetsIndications: Type 2 diabetes mellitus without complication, without long-term current use of insulin ([facility]) Use as directed. 100 Each 11 2 Active Glucose Blood In Vitro StripIndications:Ty pe 2 diabetes mellitus without complication, without long-term current use of insulin ([facility]) Use as directed once daily. 100 Strip 11 2 Active metFORMIN HCl ER 500 MG Oral Tablet Extended Release 24 Hour (Glucophage XR)Indications:Type 2 diabetes mellitus without complication, without long-term current use of insulin ([facility]) take 1 tablet by mouth once daily with a meal 90 Tablet 1 2 Active Lisinopril 20 MG Oral Tablet (Prinivil)Indicatio ns:Essential hypertension with goal blood pressure less than 140/90 take 1 tablet by mouth once daily 90 Tablet 1 2 Active Folic Acid 1 MG Oral Tablet take 1 tablet by mouth once daily 90 Tablet 1 2 Active Clobetasol Propionate 0.05 % External Ointment (Temovate)Indicatio ns:Rash and nonspecific skin eruption Apply topically to affected area 2 times a day. Apply to rash on arms. For up to two weeks. 30 g 4 Active oxygen IN GASIndications:COPD , group B, by GOLD 2017 classification ([facility]) Use 3 L/min(Oxygen) as directed daily. 3LPM during the day. 4LPM bled through bipap 1 Each 4 Active Atorvastatin Calcium 40 MG Oral Tablet (Lipitor)Indication s:Dyslipidemia, goal LDL below 100 Take 1 Tablet by mouth in the morning. 90 Tablet 3 4 Active Trelegy Ellipta 100-62.5-25 MCG/ACT Aerosol Powder Breath Activated (Fluticasone-Umecli dinium-Vilanterol)I ndications:COPD, group B, by GOLD 2017 classification ([facility]) USE 1 INHALATION BY MOUTH ONCE DAILY 180 Each 3 4 Active Torsemide 10 MG Oral Tablet (Demadex)Indication s:Heart failure, diastolic, due to HTN ([facility]),Chronic right heart failure ([facility]) TAKE 1 TABLET BY MOUTH ONCE DAILY MAY TAKE ADDITIONAL TABLET DAILY NEEDED FOR SWELLING OR INCREASED SHORTNESS OF BREATH 200 Tablet 2 4 Active Clopidogrel Bisulfate 75 MG Oral Tablet (pLAVix)Indications :Cerebrovascular accident, old TAKE 1 TABLET BY MOUTH ONCE DAILY 100 Tablet 2 4 Active Clopidogrel Bisulfate 75 MG Oral Tablet (pLAVix)Indications :Cerebrovascular accident, old take 1 tablet by mouth once daily 90 Tablet 3 4 05/19/20 24 Discontinued Hospital, Clinic, or Other Facility Administered Medication Ordered Dose Route Frequency Start Date End Date Status albuterol sulfate (PROVENTIL) (2.5 MG/3ML) 0.083% inhalation solution 2.5 mgIndications:MADONNA and COPD overlap syndrome ([facility]),Pulmonary emphysema, unspecified emphysema type ([facility]) 2.5 mg NEBULIZER Q4H PRN 10/03/2017 Acti ve albuterol sulfate (PROVENTIL) (2.5 MG/3ML) 0.083% inhalation solution 2.5 mgIndications:KITCHEN (dyspnea on exertion),Former tobacco use,COPD, severity to be determined ([facility]) 2.5 mg NEBULIZER Q4H PRN 09/02/2018 Active documented as of this encounter (statuses as of 05/19/2024) Active Problems Problem Noted Date Diagnosed Date [...] Overview: right arm went numb seen in [facility] ER Generalized anxiety disorder 05/04/2011 Vitamin [...] as of this encounter (statuses as of 05/19/2024) Resolved Problems Problem Noted Date Diagnosed Date [...] Respiratory failure requiring intubation 06/29/2016 12/15/2016 Overview: [facility] DM type 2 causing renal disease [...] as of this encounter (statuses as of 05/19/2024) Immunizations Name Administration Dates Next Due Pneumococcal Conjugate Vacci ne, 20-valent ([id number]) 03/09/2022 Pneumococcal Polysaccharide PPV23 (Pneumovax) 01/24/2007 Seasonal Influenza Vac., MDV , IM, 0.5 mL (Fluzone) 04/06/2015,05/20/2013,05/27/2012,06/05,06/29/2010,04/19/2009 Seasonal Influenza, Quadriva lent, No Preserve, IM 07/06/2016 TDAP, Age 7 and older, IM (Adacel) [...] encounter Miscellaneous Notes * Telephone Encounter - Barrett Og RPh - 05/19/2024 10:28 AM EDT Pending Prescriptions: Disp Refills Clopidogrel Bisulfate 75 MG Oral Tablet 100 Ta*2 Sig: TAKE 1 TABLET BY MOUTH ONCE DAILY * Telephone Encounter - Barrett Og RPh - 05/19/2024 10:27 AM EDT [facility] is currently not authorized to approve refills for the pended medication(s) per refill protocol. Please approve if appropriate. Barrett Og, Pharm.D. Clinical Pharmacist Centralized Clinical Pharmacy Services ([facility]) 05/19/2024, 10:27 AM [phone] documented in this encounter Plan of Treatment Health Maintenance Due Date Last Done Comments HIV Screening 01/23/1976 Alpha-1 Antitrypsin 1979 Colonoscopy 2006 Fecal Occult Blood Test 2006 Sigmoidoscopy 2006 Zoster Vaccines (1 of 2) 2011 Diabetic Foot Exam 06/05/2012 06/05/2011, 1 08/30/2009, 03/18/2009, Additional history exists DTap/Tdap Vaccines (2 - Td or Tdap) 12/18/2017 12/19/2007 Depression Monitoring 02/15/2021 02/16/2020 CKD PHOS USE SMARTSET 58746 03/01/202102/20, 10/01/2017, 06/02/2016, Additional history exists Mammogram [...] Additional history exists CKD HGB USE SMARTSET 69428 09/27/202409/27, 09/28/2023, 08/05/2021, Additional history exists O2 [...] as of this encounter Visit Diagnoses Diagnosis Cerebrovascular accident, old Transient ischemic attack (TIA), and cerebral infarction without residual deficits documented in this encounter Care Teams Envelope Stamping Machine Operator Relationship Specialty Start Date End Date Rosa Lauren MD [address] [facility] [place] [id number] PCP - General Internal Medicine 09/28/23 documented as of this encounter
[2024-08-01] MEDS ORDERED: MELATONIN 3 MG TAB PO PRN (21:00)
[2024-08-01] MEDS: ACETAMINOPHEN 325 MG TAB PO PRN (21:20)
[2024-08-01] MEDS: ENOXAPARIN INJ 40 MG/0.4 ML SYR SQ SCH (21:20)
[2024-08-02 03:55] LABS: Basophils # (auto) 0.04 K/uL (0.00-0.20); Basophils % (auto) 0.4 %; Eosinophils # (auto) 0.28 K/uL (0.00-0.50); Hematocrit (blood only) 35.7 % (37.0-47.0); Hemoglobin 10.4 g/dl (12.0-16.0); Immature Granulocytes # (auto) 0.02 K/uL (0.01-0.20); Immature Granulocytes % (auto) 0.2 %; Lymphocytes # (auto) 2.26 K/uL (1.20-3.40); Lymphocytes % (auto) 24.5 %; Mean Corpuscular Hemoglobin 27.4 pg (25.0-34.0); Mean Corpuscular Hgb Conc 29.1 g/dL (32.0-36.0); Mean Corpuscular Volume 93.9 fL (80.0-100.0); Mean Platelet Volume 10.8 fL (9.4-12.4); Monocytes # (auto) 0.93 K/uL (0.11-0.59); Monocytes % (auto) 10.1 %; Neutrophils # (auto) 5.69 K/uL (1.40-6.50); Neutrophils % (auto) 61.8 %; Platelet Count 283 K/uL (130-400); RDW Coefficient of Variation 13.7 % (11.5-14.5); RDW Standard Deviation 46.5 fL (36.4-46.3); White Blood Count 9.22 K/ul (4.8-10.8)
[2024-08-02 04:00] LABS: Alanine Aminotransferase 16 U/L (7-52); Albumin Globulin Ratio 0.8 (0.9-2); Albumin Level 3.3 gm/dl (3.4-5.0); Alkaline Phosphatase 77 U/L (34-104); Aspartate Aminotransferase 18 U/L (13-39); BUN Creatinine Ratio 20.5 (10-20); Bilirubin,Total 0.4 mg/dl (0.2-1.0); Blood Urea Nitrogen 33 mg/dl (6-23); Calcium 8.9 mg/dl (8.6-10.3); Carbon Dioxide > 45 mmol/L (21-32); Chloride 93 mmol/L (98-107); Glucose 99 mg/dl (70-99(Fasting)); Magnesium 1.9 mg/dl (1.7-2.4); Sodium 146 mmol/L (136-145); Total Protein 7.3 gm/dl (6.0-8.3)
[2024-08-02 05:51] LABS: Base Excess VBG 24.5 mEq/L; HCO3 VBG 56 mmol/L; Oxygen Saturation VBG 80.9 %; PCO2 VBG 94 mmHg (38-50); PO2 VBG 51 mmHg; pH VBG 7.38 (7.36-7.41)
[2024-08-02 07:31] LABS: Estimated Average Glucose 137 mg/dl; Hemoglobin A1C 6.4 % (4.5-5.6)
[2024-08-02] MEDS: CLOPIDOGREL BISULFATE 75 MG TAB PO SCH (07:57)
[2024-08-02] MEDS: ATORVASTATIN 40 MG TAB PO SCH (07:57)
[2024-08-02] MEDS: CHOLECALCIFEROL 125 MCG (5,000 UNITS) TAB PO SCH (07:57)
[2024-08-02] MEDS: UMECLIDINIUM/VILANTEROL 62.5/25MCG 7 PUFFS/INHALER INH SCH (07:58)
[2024-08-02] MEDS: FLUTICASONE FUROATE 100MCG 14 PUFFS/INHALER INH SCH (07:58)
--- NOTE | 2024-08-02 08:44 | Pulmonary Consultation ---
Date of Consultation August 02, 2024 Assessment & Plan (1) Obesity hypoventilation syndrome: (2) Right heart failure: Plan Impression: 64-year-old female with morbid obesity and obesity hypoventilation syndrome. I suspect she has some degree of cor pulmonale although no echo in our system. She does have lower extremity edema. We have no compliance data or recent documentation regarding her sleep evaluation or follow-up as she is through the [facility] system. Recommendations: 1. Obesity hypoventilation syndrome: The patient is well compensated. Her baseline resting CO2 levels are somewhere in the 90s. Her pH is compensated and balanced. Would recommend continuing with BiPAP 20/15 nightly and when sleeping or if increasing encephalopathy. Oxygen bleed should be titrated to keep oxygen saturations at or around 88%. Would not attempt to obtain oxygen saturations hi gher than this given her significant hypercarbia. 2. Cor pulmonale: Suspect related to above. Agree with plans for diuresis. Would avoid contraction alkalosis and may consider Diamox if additional diuretics is needed and the patient is unresponsive to traditional loops. 3. Patient's medical issues are directly attributable to her weight. Without significant weight loss, these medical issues will fail to improve and we will be progressively more problematic. Recommend the patient be referred to a formal weight management system if not already done. She now has evidence of endorgan damage directly attributable to her weight. This will likely result in a decrease in her life expectancy if significant lifestyle changes are not initiated. 4. Management of the patient's other medical issues is deferred to the primary admitting service. Will continue to follow her while an inpatient. She can follow-up with the [facility] sleep physicians at discharge. Feel free to contact us with questions or concerns History of Present Illness Attending Physician: Freddy Vargas, DO History of Present Illness Asked by hospitalist to assist in evaluation management of this patient with chronic hypercarbic and hypoxemic respiratory failure. Most of her records are through the [facility] system so we have limited records to review in the electronic medical system. History is obtained from discussion with the patient. The patient is a 64-year-old super morbidly obese patient who has a history of obesity hypoventilation syndrome and is followed in the [facility] sleep clinic. The only sleep study that we have to review was from 2019 which demonstrated a moderate degree of sleep disordered breathing and AHI of 21 and desaturations into the 70% range. This was responsive to BiPAP with oxygen bleed at 6 L/min. Patient presented to the emergency room yesterday with complaints of shortness of breath. She is also noted significant lower extremity edema and weight gain. She may or may not of been compliant with her oxygen at home. She was hypoxemic and placed on BiPAP. She received diuretics. She apparently had some confusion which resolved with noninvasive positive pressure ventilation. This morning the patient is awake and alert. She is off BiPAP. She reports that she has been compliant with the device in the past but does endorse significant weight gain. She denies cough or sputum production. She is he has noted significant swelling in her legs. Allergies Allergy/AdvReac Type Severity Reaction Status Date / Time Penicillins Allergy Unknown Verified 08/01/24 15:13 Home Medications Medication Instructions Recorded Confirmed Type atorvastatin 40 mg tablet 40 mg PO DAILY 08/01/24 08/01/24 History carvedilol 6.25 mg tablet 6.25 mg PO BID 08/01/24 08/01/24 History cholecalciferol (vitamin D3) 125 125 mcg PO DAILY 08/01/24 08/01/24 History mcg (5,000 unit) tablet (Vitamin D3) clopidogrel 75 mg tablet 75 mg PO DAILY 08/01/24 08/01/24 History fluticasone fur. 100 mcg-umeclid 1 inh inhalation DAILY 08/01/24 08/01/24 History 62.5 mcg-vilant 25 mcg inhalat.powder (Trelegy Ellipta) lisinopril 20 mg tablet 20 mg PO DAILY 08/01/24 08/01/24 History torsemide 10 mg tablet 20 mg PO DAILY PRN swelling 08/01/24 08/01/24 History Patient History Medical History (Updated 08/01/24 @ 16:20 by Stella Delgado PA-C) T2DM (type 2 diabetes mellitus) Right heart failure Chronic heart failure with preserved ejection fraction (HFpEF) Obesity hypoventilation syndrome HTN (hypertension) CVA (cerebral vascular accident) Dyslipidemia Depression with anxiety MTHFR mutation Surgical History (Updated 08/01/24 @ 16:07 by Stella Delgado PA-C) Hx of tubal ligation Hx of cholecystectomy Family History (Updated 08/01/24 @ 16:06 by Stella Delgado PA-C) Other Diabetes Social History (Updated 08/01/24 @ 16:06 by Stella Delgado PA-C) Smoking Status: Former smoker Hx Alcohol Use: No Hx Substance Use: No Preferred Language: Luxembourgish Communication Ability: Impaired 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 No additions or deletions Physical Exam Constitutional: + morbidly obese Morbid obesity limits the sensitivity of exam Neck: Short neck with significant adipose tissue limits examination of any structures Respiratory: no respiratory distress, no labored breathing, no cough and not tachypneic Auscultation limited by body habitus Cardiovascular: Rate/Rhythm: regular rate Heart Sounds: normal S1 and normal S2 Extremities: + edema Gastrointestinal (Abdomen): normal bowel sounds, soft, nontender, no hepatosplenomegaly Musculoskeletal: Extremities: extremities normal to inspection Skin: no rashes, warm and dry Neurologic: Nonfocal exam Lymphatic: no cervical lymphadenopathy Results & Data Results & Data Vital Signs (Past 12 Hours) Vital Signs Temp Pulse Pulse Resp BP Pulse Ox O2 Del Method 08/02/24 07:11 36.5 C 70 28 H 157/77 H 91 CPAP 08/02/24 01:37 78 08/01/24 23:00 36.5 C 74 24 115/64 94 Nasal Cannula 08/01/24 22:57 71 18 98 08/01/24 21:15 Nasal Cannula, BiPAP O2 Flow Rate FiO2 08/02/24 07:11 08/02/24 01:37 08/01/24 23:00 6 08/01/24 22:57 40 08/01/24 21:15 5 Critical Care Results & Data Vital Signs (Past 12 Hours) Vital Signs Temp Pulse Pulse Resp BP Pulse Ox O2 Del Method 08/02/24 07:11 36.5 C 70 28 H 157/77 H 91 CPAP 08/02/24 01:37 78 08/01/24 23:00 36.5 C 74 24 115/64 94 Nasal Cannula 08/01/24 22:57 71 18 98 08/01/24 21:15 Nasal Cannula, BiPAP O2 Flow Rate FiO2 08/02/24 07:11 08/02/24 01:37 08/01/24 23:00 6 08/01/24 22:57 40 08/01/24 21:15 5 Lab & Micro Results (Past 24 Hours) RBC 3.80 M/uL (4.20-5.40) L 08/02/24 WBC 9.22 K/ul (4.8-10.8) 08/02/24 Hgb 10.4 g/dl (12.0-16.0) L 08/02/24 Hct 35.7 % (37.0-47.0) L 08/02/24 MCV 93.9 fL (80.0-100.0) 08/02/24 MCH 27.4 pg (25.0-34.0) 08/02/24 MCHC 29.1 g/dL (32.0-36.0) L 08/02/24 RDW Standard Deviation 46.5 fL (36.4-46.3) H 08/02/24 RDW Coefficient of Variation 13.7 % (11.5-14.5) 08/02/24 Plt Count 283 K/uL (130-400) 08/02/24 MPV 10.8 fL (9.4-12.4) 08/02/24 Neutrophils (%) (Auto) 61.8 % 08/02/24 Lymphocytes (%) (Auto) 24.5 % 08/02/24 Monocytes # (Auto) 0.93 K/uL (0.11-0.59) H 08/02/24 Eosinophils # (Auto) 0.28 K/uL (0.00-0.50) 08/02/24 Immature Granulocyte % (Auto) 0.2 % 08/02/24 Neutrophils # (Auto) 5.69 K/uL (1.40-6.50) 08/02/24 Lymphocytes # (Auto) 2.26 K/uL (1.20-3.40) 08/02/24 Monocytes # (Auto) 0.93 K/uL (0.11-0.59) H 08/02/24 Eosinophils # (Auto) 0.28 K/uL (0.00-0.50) 08/02/24 Basophils # (Auto) 0.04 K/uL (0.00-0.20) 08/02/24 Immature Granulocyte # (Auto) 0.02 K/uL (0.01-0.20) 5 Na 146 mmol/L (136-145) H 08/02/24 K 4.0 mmol/L (3.5-5.1) 08/02/24 Cl 93 mmol/L (98-107) L 08/02/24 CO2 > 45 mmol/L (21-32) H* 08/02/24 Anion Gap TNP 08/02/24 BUN 33 mg/dl (6-23) H 08/02/24 Creatinine 1.61 mg/dl (0.6-1.2) H 08/02/24 BUN/Creatinine Ratio 20.5 (10-20) H 08/02/24 Glu 99 mg/dl (70-99(Fasting)) 08/02/24 Ca 8.9 mg/dl (8.6-10.3) 08/02/24 Total Bilirubin 0.4 mg/dl (0.2-1.0) 08/02/24 AST 18 U/L (13-39) 08/02/24 ALT 16 U/L (7-52) 08/02/24 Alkaline Phosphatase 77 U/L (34-104) 08/02/24 TP 7.3 gm/dl (6.0-8.3) 08/02/24 Albumin 3.3 gm/dl (3.4-5.0) L 08/02/24 Globulin 4.0 gm/dl (2.5-4.0) 08/02/24 Albumin/Globulin Ratio 0.8 (0.9-2) L 08/02/24 Mg 1.9 mg/dl (1.7-2.4) 08/02/24 03:29 Calcium Level 8.9 mg/dl (8.6-10.3) 08/02/24 03:29 Prothromb Time International Ratio 1.0 (0.9-1.1) 08/01/24 13:2 0 Venous Blood pH 7.38 (7.36-7.41) 08/02/24 05:41 Venous Blood Partial Pressure CO2 94 mmHg (38-50) H 08/02/24 05 :41 Venous Blood Partial Pressure O2 51 mmHg 08/02/24 05:41 Venous Blood HCO3 56 mmol/L 08/02/24 05:41 Venous Blood Base Excess 24.5 mEq/L 08/02/24 05:41 Venous Blood Oxygen Saturation 80.9 % 08/02/24 05:41 Diagnostic Findings (Past 24 Hours) Chest X-Ray 08/01/24 12:54 XR chest 1V portable CLINICAL HISTORY: Dyspnea TECHNIQUE: Single frontal radiograph of the chest was obtained. Comparison: Comparison is made to chest radiograph 11/18/2016 FINDINGS: Exam is limited by underpenetration. Cardiomegaly is noted. There is prominence and cephalization of the vasculature with Girish B lines seen. Small bilateral pleural effusions are seen with bilateral airspace opacities. IMPRESSION: 1. Cardiomegaly and moderate pulmonary edema. 2. Small bilateral pleural effusions with underlying airspace opacities likely representing atelectasis with or without superimposed aspiration/pneumonia. ACT 112: Negative or not required by law. Electronically signed by: Kiel Quintero M.D. 08/01/2024 1:22 PM I & O Totals 24 Hours 08/01/24 08/02/24 08/03/24 06:59 06:59 06:59 Output Total 1283 / 1283 Balance -1283 / -1283 Cumulative 08/01/24 12:35 thru 08/02/24 06:30 Output Total 1283 Balance -1283 RT Ventilator Mngmt (Last Documented) Ventilator Ordered Settings Respiratory Rate 28 08/02/24 07:11 Fraction of Inspired Oxygen 40 08/01/24 22:57 Ventilator - PT Measurements Respiratory Rate 28 PG Care Time/CCT Total # of Minutes Spent Total Time Spent with Patient: Total time spent is greater than 50% in coordination of care (as documented) at patient's floor/unit and/or counseling patient: Coding Level of Care Code 59356 INT INP/OBS CARE 2/55MIN Diagnoses Obesity hypoventilation syndrome E66.2 Right heart failure I50.810
[2024-08-02] MEDS ORDERED: FUROSEMIDE 40 MG/4 ML VIAL IV SCH (09:00)
[2024-08-02] MEDS ORDERED: lisinopril 20 MG TAB PO SCH (09:00)
[2024-08-02] MEDS ORDERED: NON-FORMULARY MEDICATION (Fluticasone-Umeclidin-Vilanter [Trelegy Ellipta] 100-62.5-25 mcg INH SCH (09:00)
[2024-08-02] MEDS: FUROSEMIDE 40 MG/4 ML VIAL IV SCH (09:19)
--- NOTE | 2024-08-02 10:26 | Cardiology Consultation ---
<Statement entered by Sona Le, DO - 08/02/24 15:17> I have reviewed the advanced practitioner's documentation and agree with the plan of care. I accept the responsibility for the associated risk. Pt seen in cardiology consultation due to acute on chronic heart failure with preserved EF most likely right sided HF-NYHA Class III Pt has been having progressive LE swelling over the past few weeks; she has not been seen in our office in sometime I would increase the original IV lasix order to 80mg BID continue other cardiac medications monitor I/Os and kidney function daily BiPAP use emphasized I discussed the case and my recommendations with the hospitalist over the phone and he agreed with my plan I spent a total of [45] minutes coordinating, documenting, and providing care for this patient excluding time spent in the performance of separately billed services or time spent by another provider/QHP. Date of Consultation August 02, 2024 Assessment & Plan (1) Acute on chronic respiratory failure with hypoxia and hypercapnia: (2) Acute on chronic heart failure with preserved ejection fraction: Plan Patient admitted with SOB, volume overload. Aggressive diuresis needed. Agree with increasing furosemide to 80 mg IV BID today Monitor I+O's replace electrolytes as needed. Daily weight Echo with preserved LVEF Continue supplemental O2 and BIPAP Continue all other oral home medications. Will need higher dose torsemide upon discharge. Per review of med list, was only taking torsemide 10 mg daily vs PRN. Case discussed with Dr. Le I spent a total of 60 minutes on the date of service in preparation, delivery, and documentation of the care provided to this patient, excluding any time spent in the performance of separately billed services. Rea Horn PA-C Department of Cardiology, [facility] This chart was completed in part utilizing Speech Voice Recognition Software. Grammatical errors, random word insertions, pronoun errors, and incomplete sentences are an occasional consequence of this system due to software limitations, ambient noise, and hardware issues. Any formal questions or concerns about the content, text, or information contained within the body of this dictation should be directly addressed to the provider for clarification. History of Present Illness Reason for Consultation: CHF; Acute on Chronic respiratory failure; Requesting Physician: Dr. Meléndez Attending Physician: Dr. Le History of Present Illness Patient admitted with worsening SOB/hypoxia. Cardiology consulted for acute on chronic HFpEF Known to [facility], but non compliant with follow up. Last visit in 2021. history includes: 1. Chronic compensated right heart failure secondary to pulmonary issues with preserved LV systolic function 2. Severe chronic obstructive lung disease O2 dependent with sleep apnea overlap using BiPAP at night 3. Morbid obesity with past hypercapnic respiratory failure Upon admission patient started on IV furosemide 40 mg BID. Increased to 80 mg IV BID today. She reports ongoing SOB. No chest pain. Remains markedly volume overloaded. No chest pain. Allergies Allergy/AdvReac Type Severity Reaction Status Date / Time Penicillins Allergy Unknown Verified 08/01/24 15:13 Home Medications Medication Instructions Recorded Confirmed Type atorvastatin 40 mg tablet 40 mg PO DAILY 08/01/24 08/01/24 History carvedilol 6.25 mg tablet 6.25 mg PO BID 08/01/24 08/01/24 History cholecalciferol (vitamin D3) 125 125 mcg PO DAILY 08/01/24 08/01/24 History mcg (5,000 unit) tablet (Vitamin D3) clopidogrel 75 mg tablet 75 mg PO DAILY 08/01/24 08/01/24 History fluticasone fur. 100 mcg-umeclid 1 inh inhalation DAILY 08/01/24 08/01/24 History 62.5 mcg-vilant 25 mcg inhalat.powder (Trelegy Ellipta) lisinopril 20 mg tablet 20 mg PO DAILY 08/01/24 08/01/24 History torsemide 10 mg tablet 20 mg PO DAILY PRN swelling 08/01/24 08/01/24 History Patient History Medical History (Updated 08/02/24 @ 10:47 by Freddy Vargas DO) T2DM (type 2 diabetes mellitus) Right heart failure Chronic heart failure with preserved ejection fraction (HFpEF) Obesity hypoventilation syndrome HTN (hypertension) CVA (cerebral vascular accident) Dyslipidemia Depression with anxiety MTHFR mutation Surgical History (Updated 08/01/24 @ 16:07 by Stella Delgado PA-C) Hx of tubal ligation Hx of cholecystectomy Family History (Updated 08/01/24 @ 16:06 by Stella Delgado PA-C) Other Diabetes Social History (Updated 08/01/24 @ 16:06 by Stella Delgado PA-C) Smoking Status: Former smoker Hx Alcohol Use: No Hx Substance Use: No Preferred Language: Tristanian Communication Ability: Impaired Ham Marker Required: No Beliefs That Will Affect Care: None Current Living Situation: Alone Other Information That Helps Us Care for You: No Feels Safe at Home: Yes Safety Concerns: Feels Safe At This Time Assistive Devices: BiPap and Oxygen - Continuous Review of Systems Review of Systems: All systems reviewed & are unremarkable except as noted in HPI & below Physical Exam Constitutional: + morbidly obese Neck: + thick neck Respiratory: + labored breathing (conversational dysp massiel) Auscultation: + diminished lung sounds Cardiovascular: Rate/Rhythm: regular rate and regular rhythm Heart Sounds: no murmur (No audible murmur. distant heart sounds) Extremities: + edema (2+ LE edema b/l ) Gastrointestinal (Abdomen): normal bowel sounds, soft, nontender, no hepatosplenomegaly Neurologic: PERRL, EOMI, accommodation nl, no face palsy, no dysarthria Results & Data Vital Signs (Past 12 Hours) Vital Signs Temp Pulse Pulse Resp BP Pulse Ox O2 Del Method 08/02/24 07:11 36.5 C 70 28 H 157/77 H 91 CPAP 08/02/24 01:37 78 08/01/24 23:00 36.5 C 74 24 115/64 94 Nasal Cannula 08/01/24 22:57 71 18 98 O2 Flow Rate FiO2 08/02/24 07:11 08/02/24 01:37 08/01/24 23:00 6 08/01/24 22:57 40 Laboratory Results Cardiac Enzymes 08/01/24 08/01/24 08/01/24 Range/Units 13:20 15:52 22:34 AST 25 (13-39) U/L Troponin I High Sens 15.6 H 16.5 H 15.8 H (0-14) pg/ml B-Natriuretic Peptide 748 H (0-100) pg/ml 08/02/24 08/02/24 Range/Units 03:26 03:29 AST 18 (13-39) U/L Troponin I High Sens 18.8 H (0-14) pg/ml B-Natriuretic Peptide (0-100) pg/ml Coagulation 08/01/24 Range/Units 13:20 PT 10.9 (9.0-12.0) Seconds B-Natriuretic Peptide 748 H (0-100) pg/ml CBC 08/01/24 08/02/24 Range/Units 13:20 03:30 WBC 10.33 9.22 (4.8-10.8) K/ul RBC 4.11 L 3.80 L (4.20-5.40) M/uL Hgb 11.2 L 10.4 L (12.0-16.0) g/dl Hct 38.8 35.7 L (37.0-47.0) % Plt Count 286 283 (130-400) K/uL Neut # (Auto) 7.69 H 5.69 (1.40-6.50) K/uL Lymph # (Auto) 1.39 2.26 (1.20-3.40) K/uL Stark # (Auto) 0.80 H 0.93 H (0.11-0.59) K/uL Eos # (Auto) 0.35 0.28 (0.00-0.50) K/uL Baso # (Auto) 0.06 0.04 (0.00-0.20) K/uL Comprehensive Metabolic Panel 08/01/24 08/02/24 Range/Units 13:20 03:29 Sodium 145 146 H (136-145) mmol/L Potassium 4.7 4.0 (3.5-5.1) mmol/L Chloride 93 L 93 L (98-107) mmol/L Carbon Dioxide > 45 H* > 45 H* (21-32) mmol/L BUN 26 H 33 H (6-23) mg/dl Creatinine 1.21 H 1.61 H D (0.6-1.2) mg/dl Glucose 138 H 99 (70-99(Fasting)) mg/dl Calcium 9.3 8.9 (8.6-10.3) mg/dl AST 25 18 (13-39) U/L ALT 19 16 (7-52) U/L Alkaline Phosphatase 87 77 (34-104) U/L Total Protein 7.9 7.3 (6.0-8.3) gm/dl Albumin 3.6 3.3 L (3.4-5.0) gm/dl Intake and Output 08/01/24 08/02/24 08/02/24 22:59 06:59 14:59 Output Total 1153 / 1283 130 / 1283 Balance -1153 / -1283 -130 / -1283 Output: Urine 550 / 550 Urine Amount (Catheter) 600 / 730 130 / 730 Damon/Indwelling 600 / 730 130 / 730 # Bowel Movements 3 / 3 Other: Weight 135.4 kg 134.7 kg Weight Measurement Method [facility] Diagnostic Findings Telemetry reviewed: NSR in the 70's. No concerning arrhythmias EKG reviewed: NSR, low voltage QRS. No change from previous Echo report reviewed LVEF 55-60% technically limited study grossly normal valve structures and chambers Chest X-Ray 08/01/24 12:54 XR chest 1V portable CLINICAL HISTORY: Dyspnea TECHNIQUE: Single frontal radiograph of the chest was obtained. Comparison: Comparison is made to chest radiograph 11/18/2016 FINDINGS: Exam is limited by underpenetration. Cardiomegaly is noted. There is prominence and cephalization of the vasculature with Girish B lines seen. Small bilateral pleural effusions are seen with bilateral airspace opacities. IMPRESSION: 1. Cardiomegaly and moderate pulmonary edema. 2. Small bilateral pleural effusions with underlying airspace opacities likely representing atelectasis with or without superimposed aspiration/pneumonia. ACT 112: Negative or not required by law. Electronically signed by: Kiel Quintero M.D. 08/01/2024 1:22 PM Prior outpatient echo dated 01/2020: Normal LVEF at 60-64% LV wall motion is normal Mild AI Medications Administered Current Inpatient Medications Acetaminophen (Acetaminophen 325 Mg Tab) 650 mg PO Q4H PRN PRN Reason: Pain or Fever Stop: 08/31/24 17:54 Last Admin: 08/01/24 21:20 Dose: 650 mg Atorvastatin Calcium (Atorvastatin 40 Mg Tab) 40 mg PO DAILY [facility] Stop: 09/01/24 08:59 Last Admin: 08/02/24 07:57 Dose: 40 mg Carvedilol (Carvedilol 6.25 Mg Tab) 6.25 mg PO BIDM [facility] Stop: 08/31/24 17:59 Last Admin: 08/02/24 07:56 Dose: 6.25 mg Clopidogrel Bisulfate (Clopidogrel Bisulfate 75 Mg Tab) 75 mg PO DAILY [facility] Stop: 09/01/24 08:59 Last Admin: 08/02/24 07:57 Dose: 75 mg Dextrose (Dextrose 50% 50 Ml Syringe) 25 - 50 ml IV UD PRN; Protocol PRN Reason: Hypoglycemia Protocol Stop: 08/31/24 17:54 Enoxaparin Sodium (Enoxaparin Inj 40 Mg/0.4 Ml Syr) 40 mg SQ Q12H [facility] Stop: 08/31/24 21:59 Last Admin: 08/02/24 09:19 Dose: 40 mg Famotidine (Famotidine 20 Mg Tab) 20 mg PO DAILY PRN PRN Reason: Heartburn Stop: 08/31/24 17:54 Fluticasone Furoate (Fluticasone Furoate 100mcg 14 Puffs/Inhaler) 1 puffs INH DAILY [facility] Stop: 09/01/24 08:59 Last Admin: 08/02/24 07:58 Dose: 1 puffs Furosemide (Furosemide 40 Mg/4 Ml Vial) 80 mg IV BID17 [facility] Stop: 09/01/24 08:59 Last Admin: 08/02/24 09:19 Dose: 80 mg Glucagon (Glucagon For Inj 1 Mg Vial) 1 mg SQ UD PRN; Protocol PRN Reason: Hypoglycemia Protocol Stop: 08/31/24 17:54 Glucose (Glucose 40% Gel 15 Gm Tube) 15 - 30 gm PO UD PRN; Protocol PRN Reason: Hypoglycemia Protocol Stop: 08/31/24 17:54 Glucose (Glucose 10 Tab/Tube) 4 - 8 tab PO UD PRN; Protocol PRN Reason: Hypoglycemia Protocol Stop: 08/31/24 17:54 Hydrocortisone (Hydrocortisone 1% Crm 30 Gm Tube) 1 appln EXT BID [facility] Stop: 09/01/24 09:44 Insulin Aspart (Insulin Aspart Per Unit Charge) 0 units SC ACHS [facility] Stop: 08/31/24 17:54 Last Admin: 08/02/24 07:55 Dose: 1 units Lisinopril (Lisinopril 20 Mg Tab) 20 mg PO DAILY [facility] Stop: 09/01/24 08:59 Miscellaneous (Carbohydrates For Hypoglycemia ) 15 - 30 gm PO UD PRN PRN Reason: Hypoglycemia Protocol Stop: 08/31/24 17:54 Ondansetron HCl (Ondansetron Inj 2 Mg/Ml 2 Ml Vial) 4 mg IV Q6H PRN PRN Reason: Nausea Stop: 08/31/24 17:54 Polyethylene Glycol (Polyethylene (Miralax) 17 Gm Pack) 17 gm PO DAILY PRN PRN Reason: Constipation Stop: 08/31/24 17:54 Umeclidinium/Vilanterol (Umeclidinium/Vilanterol 62.5/25mcg 7 Puffs/Inhaler) 1 puffs INH DAILY [facility] Stop: 09/01/24 08:59 Last Admin: 08/02/24 07:58 Dose: 1 puffs Vitamin D (Cholecalciferol 125 Mcg (5,000 Units) Tab) 125 mcg PO DAILY [facility] Stop: 09/01/24 08:59 Last Admin: 08/02/24 07:57 Dose: 125 mcg
--- NOTE | 2024-08-02 10:48 | Hospitalist Progress Note ---
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: (4) Acute renal failure superimposed on stage 3 chronic kidney disease: (5) Compensated respiratory acidosis: (6) Obesity hypoventilation syndrome: (7) T2DM (type 2 diabetes mellitus): (8) Morbid obesity: Plan Patient presents with symptoms associated with decompensated heart failure in the setting of chronic hypoxic and hypercarbic respiratory failure and evidence of volume overload Continue IV diuresis, increase Lasix dose Hold ANDRIA inhibitor with increasing creatinine Suspect acute on chronic renal failure may be due to volume overload will continue to monitor as we have ongoing diuresis Continue to wear BiPAP at night and with naps Monitor laboratory studies Monitor intake and output Echocardiogram pending Therapies Continue to monitor glucose, managed with short acting insulin Admission and Anticipated Discharge Date Admission Date: August 01, 2024 Subjective Patient thinks her breathing is a little bit better. Reports compliance with her BiPAP even at home. Physical Exam Physical Exam: Constitutional: Alert, sitting in chair, and morbidly obese, no acute respiratory distress HEENT: Mucous membranes moist. Lungs: Decreased breath sounds, crackles at bases CV: S1-S2, regular Abdomen: Soft, nontender, nondistended Extremities: Thick edema lower extremities, no significant edema posterior thighs Neuro: No focal deficits, generalized weakness, patient intact Psych: Cooperative, normal mood Results & Data Results & Data Vital Signs (Past 12 Hours) Vital Signs Temp Pulse Pulse Resp BP Pulse Ox O2 Del Method 08/02/24 07:11 36.5 C 70 28 H 157/77 H 91 CPAP 08/02/24 01:37 78 08/01/24 23:00 36.5 C 74 24 115/64 94 Nasal Cannula 08/01/24 22:57 71 18 98 O2 Flow Rate FiO2 08/02/24 07:11 08/02/24 01:37 08/01/24 23:00 6 08/01/24 22:57 40 Diagnostic Findings Reviewed imaging, laboratory and diagnostic studies. Pertinent findings as below. Hemoglobin 10.4 Venous blood gas reviewed, pCO2 94 suspect this may be her baseline, pH 7.38 Sodium 146 Bicarb greater than 45 Creatinine 1.1 Hemoglobin A1c 6.4% Troponins flat
[2024-08-02] MEDS: HYDROCORTISONE 1% CRM 30 GM TUBE EXT SCH (11:58)
[2024-08-02] MEDS: hydrOXYzine HCl 10 MG TAB PO STA (20:37)
[2024-08-02] MEDS: MAGNESIUM SULFATE / D5W 1 GM/100 ML BAG IV ONE (21:57)
[2024-08-02] MEDS: POTASSIUM CHLORIDE CRTAB 20 MEQ TABCR PO STA (21:57)
[2024-08-03 00:27] LABS: BUN Creatinine Ratio 22.4 (10-20); Blood Urea Nitrogen 35 mg/dl (6-23); Calcium 8.8 mg/dl (8.6-10.3); Carbon Dioxide > 45 mmol/L (21-32); Chloride 85 mmol/L (98-107); Creatinine Clr Calc Pharmacy 47.3 ml/min; Glucose 137 mg/dl (70-99(Fasting)); Potassium 3.8 mmol/L (3.5-5.1); Sodium 143 mmol/L (136-145)
--- NOTE | 2024-08-03 03:55 | Communication Note ---
Date of Service: August 03, 2024 Patient with episodic A-fib overnight. Patient without discomfort as per RN. Await cardio input in AM.
[2024-08-03] MEDS: carvediloL 6.25 MG TAB PO ONE (04:53)
[2024-08-03 05:56] LABS: Basophils # (auto) 0.06 K/uL (0.00-0.20); Basophils % (auto) 0.7 %; Eosinophils # (auto) 0.35 K/uL (0.00-0.50); Eosinophils % (auto) 4.1 %; Hematocrit (blood only) 37.6 % (37.0-47.0); Hemoglobin 11.2 g/dl (12.0-16.0); Immature Granulocytes # (auto) 0.02 K/uL (0.01-0.20); Immature Granulocytes % (auto) 0.2 %; Lymphocytes # (auto) 2.05 K/uL (1.20-3.40); Mean Corpuscular Hemoglobin 27.1 pg (25.0-34.0); Mean Corpuscular Hgb Conc 29.8 g/dL (32.0-36.0); Mean Corpuscular Volume 90.8 fL (80.0-100.0); Monocytes # (auto) 1.01 K/uL (0.11-0.59); Monocytes % (auto) 11.8 %; Neutrophils # (auto) 5.04 K/uL (1.40-6.50); Neutrophils % (auto) 59.2 %; Platelet Count 283 K/uL (130-400); RDW Coefficient of Variation 13.4 % (11.5-14.5); RDW Standard Deviation 45.1 fL (36.4-46.3); Red Blood Count 4.14 M/uL (4.20-5.40); White Blood Count 8.53 K/ul (4.8-10.8)
[2024-08-03 06:21] LABS: Partial Thromboplastin Time 28 Seconds (21-31)
[2024-08-03 06:39] LABS: BUN Creatinine Ratio 22.4 (10-20); Blood Urea Nitrogen 32 mg/dl (6-23); Calcium 8.9 mg/dl (8.6-10.3); Carbon Dioxide > 45 mmol/L (21-32); Chloride 87 mmol/L (98-107); Creatinine Clr Calc Pharmacy 51.5 ml/min; Glucose 90 mg/dl (70-99(Fasting)); Sodium 145 mmol/L (136-145); Thyroid Stimulating Hormone 1.491 uIu/ml (0.300-4.500)
--- NOTE | 2024-08-03 08:48 | Pulmonology Progress Note ---
Date of Service August 03, 2024 Assessment & Plan (1) Obesity hypoventilation syndrome: (2) Right heart failure: Plan Impression: 64-year-old female with morbid obesity and obesity hypoventilation syndrome. I suspect she has some degree of cor pulmonale although no echo in our system. She does have lower extremity edema. We have no compliance data or recent documentation regarding her sleep evaluation or follow-up as she is through the [facility] system. Recommendations: 1. Obesity hypoventilation syndrome: The patient is well compensated. Her baseline resting CO2 levels are somewhere in the 90s. Her pH is compensated and balanced. Would recommend continuing with BiPAP 20/15 nightly and when sleeping or if increasing encephalopathy. Oxygen bleed should be titrated to keep oxygen saturations at or around 88%. Would not attempt to obtain oxygen saturations higher than this given her significant hypercarbia. 2. Cor pulmonale: Suspect related to above. Agree with plans for diuresis. Would avoid contraction alkalosis and may consider Diamox if additional diuretics is needed and the patient is unresponsive to traditional loops. 3. Patient's medical issues are directly attributable to her weight. Without significant weight loss, these medical issues will fail to improve and we will be progressively more problematic. Recommend the patient be referred to a formal weight management system if not already done. She now has evidence of endorgan damage directly attributable to her weight. This will likely result in a decrease in her life expectancy if significant lifestyle changes are not initiated. 4. Management of the patient's other medical issues is deferred to the primary admitting service. She appears to have reached her chronic compensated pulmonary state with hypercarbia due to obesity hypoventilation syndrome. Continue BiPAP while in the hospital. Pulmonary will sign off at this point in time. Feel free to contact us with questions or concerns Admission and Anticipated Discharge Date Admission Date: August 01, 2024 Subjective Patient seen and examined. EMR reviewed. Patient is back in bed although she reports she was up to a chair eating breakfast. She states she used her BiPAP here in the hospital overnight the way she uses it at home. This is typically on and off according to her. She had some difficulty with the mask sealing with her lying in a decubitus position. She is working on diuretics. Cardiology consultation obtained and recommended continued diuresis. Review of Systems 2 Review of Systems: All systems reviewed & are unremarkable except as noted in Subjective Physical Exam 2 Constitutional: + morbidly obese Respiratory: no respiratory distress, no labored breathing, no cough and not tachypneic Cardiovascular: Rate/Rhythm: regular rate Heart Sounds: normal S1 and normal S2 Extremities: + edema Gastrointestinal (Abdomen): normal bowel sounds, soft, nontender, no hepatosplenomegaly Musculoskeletal: Extremities: extremities normal to inspection Skin: no rashes, warm and dry Lymphatic: no cervical lymphadenopathy Results & Data Results & Data Vital Signs (Past 12 Hours) Vital Signs Temp Pulse Pulse Pulse Resp BP Pulse Ox 08/03/24 07:15 36.5 C 76 21 133/78 93 08/03/24 04:52 72 147/75 H 08/03/24 03:04 36.8 C 70 20 132/74 96 08/02/24 23:17 36.5 C 70 18 136/78 97 08/02/24 22:00 81 O2 Del Method O2 Flow Rate 08/03/24 07:15 Nasal Cannula 2 08/03/24 04:52 08/03/24 03:04 BiPAP 08/02/24 23:17 Nasal Cannula 08/02/24 22:00 Laboratory Results 08/03/24 05:31 08/03/24 05:31 Diagnostic Findings No new imaging PG Care Time/CCT Total # of Minutes Spent Total Time Spent with Patient: Total time spent is greater than 50% in coordination of care (as documented) at patient's floor/unit and/or counseling patient: Coding Level of Care Code 65387 SUB INP/OBS CARE 2/35MIN Diagnoses Obesity hypoventilation syndrome E66.2 Right heart failure I50.810
[2024-08-03] MEDS: carvediloL 12.5 MG TAB PO SCH (08:59)
[2024-08-03] MEDS: POTASSIUM CHLORIDE CRTAB 20 MEQ TABCR PO SCH (08:59)
[2024-08-03] MEDS: APIXABAN 5 MG TABLET PO SCH (09:00)
--- NOTE | 2024-08-03 11:42 | Hospitalist Progress Note ---
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: (2) Acute on chronic respiratory failure with hypoxia and hypercapnia: (3) Paroxysmal atrial fibrillation with rapid ventricular response: (4) Acute on chronic heart failure with preserved ejection fraction: (5) Acute renal failure superimposed on stage 3 chronic kidney disease: (6) Compensated respiratory acidosis: (7) Obesity hypoventilation syndrome: (8) T2DM (type 2 diabetes mellitus): (9) Morbid obesity: Plan Patient with brief paroxysm of atrial fibrillation with rapid ventricular response in the setting of right ventricular failure and chronic hypoxic and hypercarbic respiratory failure now converted back to sinus rhythm Increase Coreg for rate and rhythm control Start Eliquis for anticoagulation and secondary stroke prevention, patient does carry diagnosis of previous stroke now with documented atrial fibrillation would be recommended anticoagulation Patient has responded quite well to diuresis with over 3 L negative output as per documentation patient still has evidence of volume overload. Continue IV diuresis Continue monitor renal function, has improved with diuresis Monitor electrolytes Continue to monitor glucose and manage with insulin Communication with cardiology updated on 2 events of the night and agreeing with initial plans for increasing Coreg and Eliquis Patient appears to be at her baseline respiratory status with chronic hypercarbia and respiratory acidosis with metabolic compensation. Admission and Anticipated Discharge Date Admission Date: August 01, 2024 Subjective Events of overnight reviewed. Atrial fibrillation with rapid ventricular response now converted to sinus rhythm. This morning patient states she feels better now that she is in sinus rhythm. Quite pleased with how she is diuresed happy to see that she has "feet again." Physical Exam Physical Exam: Constitutional: Alert, morbidly obese, nontoxic HEENT: Mucous membranes moist. Lungs: Decreased breath sounds, Rales at bases CV: S1-S2, regular Abdomen: Soft, nontender, nondistended Extremities: Continues with significant pitting edema and feet, ankles pretibially, decreased from yesterday Neuro: No focal deficits Psych: Cooperative, normal mood Results & Data Results & Data Vital Signs (Past 12 Hours) Vital Signs Temp Pulse Pulse Resp BP Pulse Ox O2 Del Method 08/03/24 11:07 36.4 C L 56 L 22 121/72 93 BiPAP 08/03/24 07:15 36.5 C 76 21 133/78 93 Nasal Cannula 08/03/24 04:52 72 147/75 H 08/03/24 03:04 36.8 C 70 20 132/74 96 BiPAP O2 Flow Rate 08/03/24 11:07 08/03/24 07:15 2 08/03/24 04:52 08/03/24 03:04 Diagnostic Findings Reviewed imaging, laboratory and diagnostic studies. Pertinent findings as below. Hemoglobin 11.2 Basic metabolic profile stable Creatinine 1.43, improved TSH 1.4 Potassium 4.0 Magnesium 2.0 Personally reviewed. EKG From overnight, atrial fibrillation with RVR Echocardiogram shows ejection fraction 55 to 60% otherwise difficult to evaluate due to body habitus
[2024-08-03] MEDS ORDERED: MELATONIN 3 MG TAB PO PRN (12:49)
[2024-08-03] MEDS: busPIRone 5 MG TAB PO SCH (14:09)
--- NOTE | 2024-08-03 14:10 | Cardiology Progress Note ---
<Statement entered by Sona Le, - 08/03/24 20:56> I have reviewed the advanced practitioner's documentation and agree with the plan of care. I accept the responsibility for the associated risk. pt seen in cardiology f/u due to acute on chronic heart failure with preserved EF-NYHA Class III pt has been having brief pAf on telemetry today and overnight recommend eliquis and higher dose of AVN ken would continue IV lasix for she is still volume overloaded I discussed the case and my recommendations with the hospitalist over the phone and he agreed with my plan I spent a total of [30] minutes coordinating, documenting, and providing care for this patient excluding time spent in the performance of separately billed services or time spent by another provider/QHP. Date of Service August 03, 2024 Assessment & Plan (1) Acute on chronic respiratory failure with hypoxia and hypercapnia: (2) Acute on chronic heart failure with preserved ejection fraction: (3) Paroxysmal atrial fibrillation with rapid ventricular response: (4) Morbid obesity: Plan 08/02/24: Patient admitted with SOB, volume overload. Aggressive diuresis needed. Agree with increasing furosemide to 80 mg IV BID today Monitor I+O's replace electrolytes as needed. Daily weight Echo with preserved LVEF Continue supplemental O2 and BIPAP Continue all other oral home medications. Will need higher dose torsemide upon discharge. Per review of med list, was only taking torsemide 10 mg daily vs PRN. 08/03/24: Overnight patient developed episodes of PAF. Short in duration. Discussed with hospitalist and due to history of remote CVA, started on Eliquis 5 mg BID. Carvedilol increased to 12.5 mg BID Continue on telemetry. Ongoing diuresis needed. Renal function improving. Continue furosemide 80 mg IV BID. Negative 4.3 balance since admission. Continue to monitor I+O's. replace potassium to keep 4-5 Replace magnesium to keep > 2.0. BIPAP recommended for chronic respiratory failure with hypoxia/hypercapnia. Case discussed with Dr. Le I spent a total of 30 minutes on the date of service in preparation, delivery, and documentation of the care provided to this patient, excluding any time spent in the performance of separately billed services. Rea Horn PA-C Department of Cardiology, [facility] This chart was completed in part utilizing Speech Voice Recognition Software. Grammatical errors, random word insertions, pronoun errors, and incomplete sentences are an occasional consequence of this system due to software limitations, ambient noise, and hardware issues. Any formal questions or concerns about the content, text, or information contained within the body of this dictation should be directly addressed to the provider for clarification. Admission and Anticipated Discharge Date Admission Date: August 01, 2024 Subjective Patient resting in bed. Ongoing SOB reported. Patient had short bursts of PAF overnight. Developed recurrent afib at time of evaluation. Worsening SOB reported. BIPAP being placed on patient. No chest pain. Diuresing well. Review of Systems Review of Systems: All systems reviewed & are unremarkable except as noted in HPI & below Physical Exam Constitutional: + morbidly obese Neck: + thick neck Respiratory: + labored breathing (conversational dysp massiel) Auscultation: + diminished lung sounds Cardiovascular: Rate/Rhythm: + tachycardic and + irregularly irregular Heart Sounds: no murmur (No audible murmur. distant heart sounds) Extremities: + edema (2+ LE edema b/l ) Gastrointestinal (Abdomen): normal bowel sounds, soft, nontender, no hepatosplenomegaly Neurologic: PERRL, EOMI, accommodation nl, no face palsy, no dysarthria Results & Data Vital Signs (Past 12 Hours) Vital Signs Temp Pulse Pulse Resp BP Pulse Ox O2 Del Method 08/03/24 13:10 87 18 117/77 88 L Nasal Cannula 08/03/24 11:07 36.4 C L 56 L 22 121/72 93 BiPAP 08/03/24 11:02 Nasal Cannula, BiPAP 08/03/24 07:15 36.5 C 76 21 133/78 93 Nasal Cannula 08/03/24 04:52 72 147/75 H 08/03/24 03:04 36.8 C 70 20 132/74 96 BiPAP O2 Flow Rate 08/03/24 13:10 5 08/03/24 11:07 08/03/24 11:02 1 08/03/24 07:15 2 08/03/24 04:52 08/03/24 03:04 Laboratory Results Coagulation 08/03/24 Range/Units 05:31 APTT 28 (21-31) Seconds CBC 08/03/24 Range/Units 05:31 WBC 8.53 (4.8-10.8) K/ul RBC 4.14 L (4.20-5.40) M/uL Hgb 11.2 L (12.0-16.0) g/dl Hct 37.6 (37.0-47.0) % Plt Count 283 (130-400) K/uL Neut # (Auto) 5.04 (1.40-6.50) K/uL Lymph # (Auto) 2.05 (1.20-3.40) K/uL [place] # (Auto) 1.01 H (0.11-0.59) K/uL Eos # (Auto) 0.35 (0.00-0.50) K/uL Baso # (Auto) 0.06 (0.00-0.20) K/uL Comprehensive Metabolic Panel 08/02/24 08/03/24 Range/Units 23:05 05:31 Sodium 143 145 (136-145) mmol/L Potassium 3.8 4.0 (3.5-5.1) mmol/L Chloride 85 L 87 L (98-107) mmol/L Carbon Dioxide > 45 H* > 45 H* (21-32) mmol/L BUN 35 H 32 H (6-23) mg/dl Creatinine 1.56 H 1.43 H (0.6-1.2) mg/dl Glucose 137 H 90 (70-99(Fasting)) mg/dl Calcium 8.8 8.9 (8.6-10.3) mg/dl Intake and Output 08/02/24 08/03/24 08/03/24 22:59 06:59 14:59 Intake Total 370 / 550 Output Total 1500 / 3602 1302 / 3602 Balance -1500 / -3052 -932 / -3052 Intake: IV 100 / 100 Magnesium Sulfate / D5w 1 gm In 100 / 100 100 ml @ 50 mls/hr IV ONE ONE Rx#:[id number] Oral 270 / 450 Output: Urine Amount (Catheter) 1500 / 3600 1300 / 3600 Damon/Indwelling 1500 / 3600 1300 / 3600 # Bowel Movements 2 / 2 Other: Weight 134.2 kg Diagnostic Findings Telemetry reviewed: Brief episodes of PAF on telemetry. Variable HR's. Medications Administered Current Inpatient Medications Acetaminophen (Acetaminophen 325 Mg Tab) 650 mg PO Q4H PRN PRN Reason: Pain or Fever Stop: 08/31/24 17:54 Last Admin: 08/01/24 21:20 Dose: 650 mg Apixaban (Apixaban 5 Mg Tablet) 5 mg PO BID [facility] Stop: 09/02/24 08:59 Last Admin: 08/03/24 09:00 Dose: 5 mg Atorvastatin Calcium (Atorvastatin 40 Mg Tab) 40 mg PO DAILY CAT Stop: 09/01/24 08:59 Last Admin: 08/03/24 08:59 Dose: 40 mg Buspirone HCl (Buspirone 5 Mg Tab) 5 mg PO TID [facility] Stop: 09/02/24 13:59 Carvedilol (Carvedilol 12.5 Mg Tab) 12.5 mg PO BIDM [facility] Stop: 09/02/24 07:59 Last Admin: 08/03/24 08:59 Dose: 12.5 mg Clopidogrel Bisulfate (Clopidogrel Bisulfate 75 Mg Tab) 75 mg PO DAILY [facility] Stop: 09/01/24 08:59 Last Admin: 08/03/24 08:59 Dose: 75 mg Dextrose (Dextrose 50% 50 Ml Syringe) 25 - 50 ml IV UD PRN; Protocol PRN Reason: Hypoglycemia Protocol Stop: 08/31/24 17:54 Famotidine (Famotidine 20 Mg Tab) 20 mg PO DAILY PRN PRN Reason: Heartburn Stop: 08/31/24 17:54 Fluticasone Furoate (Fluticasone Furoate 100mcg 14 Puffs/Inhaler) 1 puffs INH DAILY CAT Stop: 09/01/24 08:59 Last Admin: 08/03/24 08:58 Dose: 1 puffs Furosemide (Furosemide 40 Mg/4 Ml Vial) 80 mg IV BID17 CAT Stop: 09/01/24 08:59 Last Admin: 08/03/24 08:58 Dose: 80 mg Glucagon (Glucagon For Inj 1 Mg Vial) 1 mg SQ UD PRN; Protocol PRN Reason: Hypoglycemia Protocol Stop: 08/31/24 17:54 Glucose (Glucose 40% Gel 15 Gm Tube) 15 - 30 gm PO UD PRN; Protocol PRN Reason: Hypoglycemia Protocol Stop: 08/31/24 17:54 Glucose (Glucose 10 Tab/Tube) 4 - 8 tab PO UD PRN; Protocol PRN Reason: Hypoglycemia Protocol Stop: 08/31/24 17:54 Hydrocortisone (Hydrocortisone 1% Crm 30 Gm Tube) 1 appln EXT BID [facility] Stop: 09/01/24 09:44 Last Admin: 08/03/24 08:58 Dose: 1 appln Insulin Aspart (Insulin Aspart Per Unit Charge) 0 units SC ACHS CAT Stop: 08/31/24 17:54 Last Admin: 08/03/24 11:56 Dose: 2 units Lisinopril (Lisinopril 20 Mg Tab) 20 mg PO DAILY [facility] Stop: 09/01/24 08:59 Melatonin (Melatonin 3 Mg Tab) 9 mg PO HS PRN PRN Reason: Sleep Stop: 09/02/24 12:48 Miscellaneous (Carbohydrates For Hypoglycemia ) 15 - 30 gm PO UD PRN PRN Reason: Hypoglycemia Protocol Stop: 08/31/24 17:54 Ondansetron HCl (Ondansetron Inj 2 Mg/Ml 2 Ml Vial) 4 mg IV Q6H PRN PRN Reason: Nausea Stop: 08/31/24 17:54 Polyethylene Glycol (Polyethylene (Miralax) 17 Gm Pack) 17 gm PO DAILY PRN PRN Reason: Constipation Stop: 08/31/24 17:54 Potassium Chloride (Potassium Chloride Crtab 20 Meq Tabcr) 20 meq PO BID CAT Stop: 09/02/24 08:59 Last Admin: 08/03/24 08:59 Dose: 20 meq Umeclidinium/Vilanterol (Umeclidinium/Vilanterol 62.5/25mcg 7 Puffs/Inhaler) 1 puffs INH DAILY [facility] Stop: 09/01/24 08:59 Last Admin: 08/03/24 08:58 Dose: 1 puffs Vitamin D (Cholecalciferol 125 Mcg (5,000 Units) Tab) 125 mcg PO DAILY CAT Stop: 09/01/24 08:59 Last Admin: 08/03/24 08:59 Dose: 125 mcg
[2024-08-03] MEDS ORDERED: carvediloL 6.25 MG TAB PO SCH (18:00)
[2024-08-04] MEDS ORDERED: NYSTATIN POWDER 15GM BTL EXT PRN (05:38)
[2024-08-04 07:05] LABS: BUN Creatinine Ratio 26.5 (10-20); Blood Urea Nitrogen 45 mg/dl (6-23); Carbon Dioxide > 45 mmol/L (21-32); Chloride 88 mmol/L (98-107); Creatinine Clr Calc Pharmacy 42.9 ml/min; Glucose 93 mg/dl (70-99(Fasting)); Potassium 4.5 mmol/L (3.5-5.1); Sodium 146 mmol/L (136-145)
[2024-08-04 08:23] LABS: HCO3 VBG 62 mmol/L; Oxygen Saturation VBG < 60.0 %; PCO2 VBG 104 mmHg (38-50); PO2 VBG 22 mmHg; pH VBG 7.38 (7.36-7.41)
--- NOTE | 2024-08-04 10:29 | Cardiology Progress Note ---
Date of Service August 04, 2024 Assessment & Plan (1) Acute on chronic respiratory failure with hypoxia and hypercapnia: (2) Acute on chronic heart failure with preserved ejection fraction: (3) Paroxysmal atrial fibrillation with rapid ventricular response: (4) Morbid obesity: Plan 64 year old female admitted on 08/01/2024 with SOB, volume overload, obesity hypoventilation syndrome, Pickwickian physiology. Receiving IV furosemide 80 mg BID I/O's -5,725 mL's overall, weight down 3 kg Limited echo on 08/02/2024 with preserved LVEF, 55-60%. Telemetry with asymptomatic PAF this admission [id number] Score 7 points Recommendations: * Continue supplemental O2 and BIPAP at night and when napping during the day. * Discontinue IV furosemide * Start oral torsemide 40 mg/day in AM of 08/05 * Carvedilol increased to 12.5 BID this admission * Anticoagulation with Eliquis initiated this admission * OK to discontinue clopidogrel from a cardiac standpoint * Continue atorvastatin and lisinopril * Outpatient cardiology follow-up Admission and Anticipated Discharge Date Admission Date: August 01, 2024 Supervising Physician Co-Signing Physician Notes Attending attestation: Case reviewed with the advanced practitioner. I have personally performed a history and physical examination on the patient. I have reviewed the advanced practitioner's documentation on the date of service referenced in note, and I agree with, and take responsibility for the plan of care. I spent a total of 20 minutes coordinating, documenting, and providing care for this patient excluding time spent in the performance of separately billed services or time spent by another provider. Aj Gates, DO Subjective Patient seen and examined. Chart, medications, and telemetry reviewed. Feeling better, with improved dyspnea and lower extremity edema. No chest pain. No palpitations. Telemetry: Sinus with atrial ectopy. PAF last on 08/03/2023 around 7 AM. Review of Systems Review of Systems: Complete Review of Systems is as stated above, negative, or noncontributory. Physical Exam Physical Exam: General: A&Ox3. NAD. Hard of hearing. Skin: + Rash on chest HENT: Normocephalic. Atraumatic. Eyes: PER. Conjunctiva pink, sclera clear. Neck: Thick. Veins not appreciated. Heart: Distant heart sounds. Regular at 60 bpm. Lungs: Decreased. Diminished. No abnormal breath sounds auscultated. Abdomen: Obese. +BS. Soft. Nontender. No masses or organomegaly. Extremities: Thick. Minimal edema. Lymphomatous changes. No cyanosis Limited neurological examination is without focal deficits. Results & Data Vital Signs (Past 12 Hours) Vital Signs Temp Pulse Pulse Resp BP Pulse Ox O2 Del Method 08/04/24 07:23 36.2 C L 70 18 124/64 97 Nasal Cannula 08/04/24 03:15 37.0 C 56 L 18 118/72 97 CPAP 08/04/24 02:34 60 18 97 08/03/24 23:03 66 17 97 08/03/24 22:35 36.7 C 63 18 116/56 L 96 Nasal Cannula O2 Flow Rate FiO2 08/04/24 07:23 3 08/04/24 03:15 08/04/24 02:34 40 08/03/24 23:03 45 08/03/24 22:35 5 Laboratory Results Comprehensive Metabolic Panel 08/04/24 Range/Units 06:12 Sodium 146 H (136-145) mmol/L Potassium 4.5 (3.5-5.1) mmol/L Chloride 88 L (98-107) mmol/L Carbon Dioxide > 45 H* (21-32) mmol/L BUN 45 H (6-23) mg/dl Creatinine 1.70 H (0.6-1.2) mg/dl Glucose 93 (70-99(Fasting)) mg/dl Calcium 9.0 (8.6-10.3) mg/dl Intake and Output 08/03/24 08/04/24 08/04/24 22:59 06:59 14:59 Intake Total 200 / 560 Output Total 1949 150 / 1949 Balance -550 / -1390 50 / -1390 Intake: Oral 200 / 560 Output: Urine Amount (Catheter) 1949 Damon/Indwelling 1949 Other: Weight 132.4 kg Weight Measurement Method Built in [facility]
--- NOTE | 2024-08-04 12:10 | Hospitalist Progress Note ---
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 Creatinine is slightly increased today, suspect patient is now at her compensated state from a heart failure standpoint. Will hold IV diuresis today and start oral diuretics tomorrow Venous pCO2 slightly increased from what we presumed to be her baseline, however pH is still within normal range indicating compensated state. Suspect this may be somewhat due to contraction alkalosis with her diuresis. Will let her compensate on her own by holding diuresis today. Her mentation is clear and and she has as alert as she has been his whole hospitalization Continue to monitor renal function, continue to hold ANDRIA inhibitor due to increased renal dysfunction Monitor other electrolytes Continue therapies Continue her home oxygen and BiPAP Discontinue Damon catheter Communication with cardiology reviewed plan of care Anticipate possible discharge tomorrow Admission and Anticipated Discharge Date Admission Date: August 01, 2024 Subjective Patient is feeling better today. Had a bowel movement. States her breathing is essentially baseline. Pleased with decreased swelling. Physical Exam Physical Exam: Constitutional: Alert, interactive, talkative, nontoxic HEENT: Mucous membranes moist. Lungs: Decreased breath sounds, prolonged expiratory phase, few crackles at bases CV: S1-S2, regular Abdomen: Soft, nontender, nondistended, morbidly obese Extremities: Decreased edema lower extremities, skin is starting to wrinkle a little Neuro: No focal deficits Psych: Cooperative, normal mood Results & Data Results & Data Vital Signs (Past 12 Hours) Vital Signs Temp Pulse Pulse Resp BP Pulse Ox O2 Del Method 08/04/24 11:18 36.2 C L 56 L 18 164/84 H 96 Nasal Cannula 08/04/24 07:23 36.2 C L 70 18 124/64 97 Nasal Cannula 08/04/24 03:15 37.0 C 56 L 18 118/72 97 CPAP 08/04/24 02:34 60 18 97 O2 Flow Rate FiO2 08/04/24 11:18 3 08/04/24 07:23 3 08/04/24 03:15 08/04/24 02:34 40 Diagnostic Findings Reviewed imaging, laboratory and diagnostic studies. Pertinent findings as below. Weight 132.4 kg, decreased Intake and output negative Venous pCO2 104, slightly increased from baseline Sodium 146 Chloride 88 Creatinine 1.7
--- NOTE | 2024-08-05 06:42 | Electrocardiogram Report ---
Test Reason : Blood Pressure : */* mmHG Vent. Rate : 134 BPM Atrial Rate : * BPM P-R Int : * ms QRS Dur : 72 ms QT Int : 282 ms P-R-T Axes : * 26 64 degrees QTcB Int : 421 ms Atrial fibrillation with rapid ventricular response with premature ventricular or aberrantly conducte d complexes Low voltage QRS Abnormal ECG When compared with ECG of 01-Aug-2024 13:10, Atrial fibrillation has replaced Sinus rhythm Vent. rate has increased by 65 bpm Confirmed by Ivan Martin ([id number]) on 08/05/2024 6:42:52 AM Referred By: REFERRED SELF Confirmed By: Ivan Martin
[2024-08-05] MEDS: TORSEMIDE 20 MG TAB PO SCH (08:15)
[2024-08-05 09:04] LABS: BUN Creatinine Ratio 30.2 (10-20); Blood Urea Nitrogen 52 mg/dl (6-23); Calcium 9.6 mg/dl (8.6-10.3); Carbon Dioxide > 45 mmol/L (21-32); Chloride 86 mmol/L (98-107); Creatinine Clr Calc Pharmacy 42.1 ml/min; Glucose 97 mg/dl (70-99(Fasting)); Magnesium 2.2 mg/dl (1.7-2.4); Potassium 4.5 mmol/L (3.5-5.1); Sodium 142 mmol/L (136-145)
--- NOTE | 2024-08-05 09:41 | Discharge Summary ---
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 Noted to be in volume overload. Patient was admitted to the hospital. She was given IV diuresis. She is supported with her oxygen and BiPAP. Pulmonary and cardiology consultations were obtained. Patient essentially had compensated chronic hypercarbic and hypoxic respiratory failure. With diuresis her needs for BiPAP greatly reduced and she could return to her usual BiPAP at night. Patient continued to diurese well. Her electrolytes were replaced as needed. She did have some brief bursts of atrial fibrillation. This is new for her. Echocardiogram showed preserved ejection fraction but confirmed pulmonary hypertension. She was started on Eliquis for anticoagulation and her Coreg dose was increased for rate control in the setting of the paroxysmal atrial fibrillation. This was effective and she tolerated it well. Patient has some chronic renal failure with diuresis creatinine did increase slightly but stabilized. She may be establishing a new baseline creatinine. Her edema decreased. Her energy increased with the decreased weight from diuresis. On the day of discharge her vital signs are stable. She is feeling well on her usual oxygen. Please that she has significantly decreased swelling in her legs and able to move around much better. She is tolerating adjustments in her medications and the resumption of her torsemide dose which was increased. She will be discharged home to follow-up with her outpatient providers. Will continue to hold ANDRIA inhibitor in setting of her renal function and follow-up with her PCP as well Notes For Next Care Provider Follow-up with cardiology Consider BMP in 10 to 14 days Medication Changes From Visit Coreg dose increased Eliquis added Torsemide dose increased Lisinopril held due to renal dysfunction BuSpar started for anxiety Admission HPI Per Admitting Provider This is a 64-year-old female who has significant past medical history of chronic respiratory failure with hypoxia and hypercapnia on 4 L of oxygen, obesity hypoventilation syndrome, MADONNA on CPAP, chronic HFpEF, chronic right heart failure, HTN, HLD, methylenetetrahydrofolate reductase mutation, T2DM, morbid obesity, CKD stage III, peripheral neuropathy, depression with anxiety who presents to ED secondary to shortness of breath for a few days. Her daughter and [id number] are at bedside. They report patient has been more short of breath for the few days. She also reports increased swelling to her lower extremities. She is unsure if she has had weight gain as she does not weigh herself. She also reports that her oxygen was not working at home. She denies any fever, chills, sweats, lightheadedness, dizziness, chest pain, cough, hemoptysis, nausea, vomiting or abdominal pain. She denies any change in her bowel or urinary habits. She did report chest pressure when she was en route, but this has since subsided. She did start taking her torsemide the last few days, she reports, "2 pills," without much improvement in her swelling. In ED patient was hypoxic requiring BiPAP therapy. Her initial VBG revealed a pH of 7.34 and a CO2 of 94. She received 80 mg of IV Lasix. Her BNP was elevated at 748, troponin 15. According to family members at bedside they felt she was more confused this morning, but after being on BiPAP therapy they feel she is back to her baseline. Admission Exam Per Admitting Provider See H&P Discharge Exam Constitutional: Alert, morbidly obese, nontoxic, no acute distress HEENT: Mucous membranes moist. Lungs: Decreased breath sounds, few crackles at bases CV: S1-S2, regular Abdomen: Soft, nontender, nondistended Extremities: Lower extremity edema significantly decreased, skin loose Neuro: No focal deficits Psych: Cooperative, normal mood Updated Medication List Medication Instructions Recorded Confirmed Type atorvastatin 40 mg tablet 40 mg PO DAILY 08/01/24 08/01/24 History carvedilol 6.25 mg tablet 6.25 mg PO BID 08/01/24 08/01/24 History cholecalciferol (vitamin D3) 125 125 mcg PO DAILY 08/01/24 08/01/24 History mcg (5,000 unit) tablet (Vitamin D3) clopidogrel 75 mg tablet 75 mg PO DAILY 08/01/24 08/01/24 History fluticasone fur. 100 mcg-umeclid 1 inh inhalation DAILY 08/01/24 08/01/24 History 62.5 mcg-vilant 25 mcg inhalat.powder (Trelegy Ellipta) lisinopril 20 mg tablet 20 mg PO DAILY 08/01/24 08/01/24 History torsemide 10 mg tablet 20 mg PO DAILY PRN swelling 08/01/24 08/01/24 History apixaban 5 mg tablet (Eliquis) 5 mg PO BID #60 tabs 08/05/24 Rx buspirone 5 mg tablet 5 mg PO TID #90 tabs 08/05/24 Rx carvedilol 12.5 mg tablet 12.5 mg PO BIDM #60 tabs 08/05/24 Rx torsemide 20 mg tablet 40 mg (2 x 20 mg) PO QAM #60 tabs 08/05/24 Rx Hospital Stay Data Consultations 08/01/24 14:41 ED Decision to Admit Stat 08/01/24 17:55 Consult Cardiology Routine 08/02/24 07:00 Consult Pulmonology Routine Diagnostic Imagining Performed Reviewed imaging, laboratory and diagnostic studies. Pertinent findings as below. Potassium 4.5 Bicarb 45 and is her baseline Creatinine 1.72, stabilized Magnesium 2.2 Echocardiogram shows ejection fraction of 55 to 60%. Refer to the full report for details Pending Results Patient Have Any Pending Studies at Discharge: No Discharge Instructions Given to Patient (Per Discharging Provider) Call 911 and go to the Emergency Room if: * You have tightness or pain in your chest that does not go away with rest or Nitroglycerin * You are very short of breath even with rest Call your doctor if any of the following symptoms or problems start or get worse: * Shortness of breath or difficulty breathing * Wake up at night short of breath * Chest pain * Cough * Swelling of your hands, fee, or legs * More fatigued or tired with your normal activity * Palpitations - sudden fast heart beats WEIGHT * Weigh yourself every morning after using the bathroom. * Use the same scale. * Wear the same amount of clothing. * Write your weight down on your chart. * Call your doctor if you gain more than 2-3 pounds in 1-2 days. MEDICATIONS * Use this discharge instruction sheet for instructions. * Take your medications at the time your doctor ordered. * Do not skip a dose of your medicines. * If you miss a dose of medicine, take as soon as possible, but DO NOT DOUBLE A DOSE. * Read your medicine information when you get home. * Know all of the side effects of your medicine. * Call your doctor's office if you have any side effects. * Be sure all of your doctors know what medicine and herbs you take (including cold, flu, and herbal medicine). * Pain Medicine: If you do not get relief from your pain, please call your doctor for help. Take the following with you to your follow-up doctor appointments: * Weight Chart * Medication List * List of questions Do not drink excessive alcohol, beer or wine. Total Time Total Time Spent Total Time Spent (In Minutes): 36
--- NOTE | 2024-08-05 09:45 | Cardiology Progress Note ---
Date of Service August 05, 2024 Assessment & Plan (1) Acute on chronic respiratory failure with hypoxia and hypercapnia: (2) Acute on chronic heart failure with preserved ejection fraction: (3) Paroxysmal atrial fibrillation with rapid ventricular response: (4) Morbid obesity: Plan 64 year old female admitted on 08/01/2024 with SOB, volume overload, obesity hypoventilation syndrome, Pickwickian physiology. Limited echo on 08/02/2024 with preserved LVEF, 55-60%. Received IV furosemide 80 mg BID until last on 08/03 I/O's -5,795 mL's overall, weight down 4.6 kg Telemetry with asymptomatic PAF this admission [id number] Score 7 points Recommendations: * Continue supplemental O2 and BIPAP at night and when napping during the day. * Torsemide 40 mg/day * Carvedilol increased to 12.5 BID this admission * Anticoagulation with Eliquis initiated this admission * OK to discontinue clopidogrel from a cardiac standpoint * Lisinopril hold since 08/02 due to renal dysfunction * Continue atorvastatin * Outpatient cardiology follow-up * Please contact with any cardiac questions/concerns Admission and Anticipated Discharge Date Admission Date: August 01, 2024 Supervising Physician Co-Signing Physician Notes Segments crossed attending attestation: Case reviewed with the advanced practitioner. I have personally performed a history and physical examination on the patient. I have reviewed the advanced practitioner's documentation on the date of service referenced in note, and I agree with, and take responsibility for the plan of care. Aj Gates, DO Subjective Patient seen and examined. Chart, medications, and telemetry reviewed. Feeling better overall. Mild (chronic) back pain only. Breathing has improved. No chest pain. No palpitations. Telemetry: Sinus/mild sinus bradycardia, occasional atrial ectopy. PAF last on 08/03/2023 around 7 AM. Review of Systems Review of Systems: Complete Review of Systems is as stated above, negative, or noncontributory. Physical Exam Physical Exam: General: A&Ox3. NAD. Hard of hearing. Skin: Rash HENT: Normocephalic. Atraumatic. Eyes: PER. Conjunctiva pink, sclera clear. Neck: Thick. Veins not appreciated. Heart: Distant heart sounds. Regular at 60 bpm. Lungs: Decreased. Diminished. No abnormal breath sounds auscultated. Abdomen: Obese. +BS. Soft. Nontender. No masses or organomegaly. Extremities: Thick. Minimal edema. Lymphomatous changes. No cyanosis Limited neurological examination is without focal deficits. Results & Data Vital Signs (Past 12 Hours) Vital Signs Temp Pulse Pulse Resp BP Pulse Ox O2 Del Method 08/05/24 07:15 36.4 C L 60 18 116/71 97 Nasal Cannula 08/05/24 07:10 63 08/05/24 03:53 36.3 C L 58 L 17 108/64 99 Nasal Cannula 08/04/24 22:35 61 17 99 08/04/24 22:26 36.7 C 61 18 97/68 L 97 CPAP O2 Flow Rate FiO2 08/05/24 07:15 3 08/05/24 07:10 08/05/24 03:53 3 08/04/24 22:35 40 08/04/24 22:26 Laboratory Results Comprehensive Metabolic Panel 08/05/24 Range/Units 07:44 Sodium 142 (136-145) mmol/L Potassium 4.5 (3.5-5.1) mmol/L Chloride 86 L (98-107) mmol/L Carbon Dioxide > 45 H* (21-32) mmol/L BUN 52 H (6-23) mg/dl Creatinine 1.72 H (0.6-1.2) mg/dl Glucose 97 (70-99(Fasting)) mg/dl Calcium 9.6 (8.6-10.3) mg/dl Intake and Output 08/04/24 08/05/24 08/05/24 22:59 06:59 14:59 Intake Total 100 / 580 Output Total 250 / 650 Balance 100 / -70 -250 / -70 Intake: Oral 100 / 580 Output: Urine 250 / 250 Other: # Unmeasured Voids 2 Weight 130.8 kg Weight Measurement Method Built in [facility]
--- NOTE | 2024-08-06 09:51 | Discharge Summary ---
Date of Service August 06, 2024 Admission HPI Per Admitting Provider This is a 64-year-old female who has significant past medical history of chronic respiratory failure with hypoxia and hypercapnia on 4 L of oxygen, obesity hypoventilation syndrome, MADONNA on CPAP, chronic HFpEF, chronic right heart failure, HTN, HLD, methylenetetrahydrofolate reductase mutation, T2DM, morbid obesity, CKD stage III, peripheral neuropathy, depression with anxiety who presents to ED secondary to shortness of breath for a few days. Her daughter and [id number] are at bedside. They report patient has been more short of breath for the few days. She also reports increased swelling to her lower extremities. She is unsure if she has had weight gain as she does not weigh herself. She also reports that her oxygen was not working at home. She denies any fever, chills, sweats, lightheadedness, dizziness, chest pain, cough, hemoptysis, nausea, vomiting or abdominal pain. She denies any change in her bowel or urinary habits. She did report chest pressure when she was en route, but this has since subsided. She did start taking her torsemide the last few days, she reports, "2 pills," without much improvement in her swelling. In ED patient was hypoxic requiring BiPAP therapy. Her initial VBG revealed a pH of 7.34 and a CO2 of 94. She received 80 mg of IV Lasix. Her BNP was elevated at 748, troponin 15. According to family members at bedside they felt she was more confused this morning, but after being on BiPAP therapy they feel she is back to her baseline. Admission Exam Per Admitting Provider Constitutional: Morbidly obese F, in bed,on bipap, vitals as above, NAD, sitting up in bed, pleasant, conversing easily Head: Normocephalic, Atraumatic Eyes: PERRL, conjunctivae normal, anicteric sclerae ENMT: external ear and nose normal, erythematous face, oropharynx normal Neck: trachea midline, no thyromegaly normal visual inspection Respiratory: +bipap, normal respiratory effort, lungs clear to auscultation with b/l rhonchi, no w/r. Normal insp/exp effort, no accessory muscle use Cardiovascular: RRR, no murmur, b/l obese ++edema Vessels: no JVD or carotid bruit Chest: normal inspection of chest Abdomen: +obese abd but soft, NT, o hepatosplenomegaly Musculoskeletal: no cyanosis or clubbing, extremities motor strength 5/5 Skin: facial erythema and petechia, poor foot care, warm and dry normal turgor Neurologic: PERRL, EOMI, accommodation nl, no face palsy, no dysarthria CN's II-XI intact bilaterally and moves all extremities Psychiatric: A+Ox3, euthymic affect Lymphatic: no cervical or axillary lymphadenopathy : deferred Principal Diagnosis Acute on chronic respiratory failure with hypoxia Acute on chronic heart failure with preserved ejection fraction Paroxysmal Atrial Fibrillation Discharge Exam Constitutional + morbidly obese; no acute distress Eyes PERRL, conjunctivae normal, anicteric sclerae ENMT external ear and nose normal, oropharynx normal Respiratory On nasal cannula, diminished breath sounds Cardiovascular Rate/Rhythm: regular rate and regular rhythm Gastrointestinal (Abdomen) normal bowel sounds, soft, nontender, no hepatosplenomegaly Musculoskeletal Trace pedal edema Neurologic PERRL, EOMI, accommodation nl, no face palsy, no dysarthria Discharge Data Allergies Allergy/AdvReac Type Severity Reaction Status Date / Time Penicillins Allergy Unknown Verified 08/01/24 15:13 Consultations 08/01/24 14:41 ED Decision to Admit Stat 08/01/24 17:55 Consult Cardiology Routine 08/02/24 07:00 Consult Pulmonology Routine Hospital Course (1) 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 Noted to be in volume overload. Patient was admitted to the hospital. She was given IV diuresis. She is supported with her oxygen and BiPAP. Pulmonary and cardiology consultations were obtained. Patient essentially had compensated chronic hypercarbic and hypoxic respiratory failure. With diuresis her needs for BiPAP greatly reduced and she could return to her usual BiPAP at night. Patient continued to diurese well. Her electrolytes were replaced as needed. She did have some brief bursts of atrial fibrillation which is new. Echocardiogram showed preserved ejection fraction but confirmed pulmonary hypertension. She was started on Eliquis for anticoagulation and her Coreg dose was increased for rate control in the setting of the paroxysmal atrial fibrillation. Patient has some chronic renal failure with diuresis creatinine did increase slightly but stabilized. Her edema decreased. Will continue to hold [place] inhibitor in setting of her renal function and follow- up with her PCP as well Patient has no new complaints today Per Patient and CM, patient does not have portable oxygen but has oxygen concentrator at home. She will like to go home today. Daughter ok with being discharged and they will have her DME fix her portable oxygen CM arranged transport with oxygen. Patient to continue using her concentrator at home Total Time Total Time Spent Total Time Spent (In Minutes): 35 Total Time Includes: Examination of the Patient and Discharge Planning Discharge Plan Discharge Items Patient Disposition: Home - Home Health Services Reason For Visit: ACUTE/CHRONIC CHF, OBESITY HYPOVENTILATION SYNDROM Discharge Diagnosis: Acute on chronic heart failure with preserved ejection fraction Acute on chronic hypoxic and hypercarbic respiratory failure due to CHF Obesity hypoventilatory syndrome New onset paroxysmal atrial fibrillation Activity: Resume your previous activity Non-emergency contact: Primary Care Provider and Men'S Garment Fitter Call non-emergency contact if: you have any medication questions and your symptoms worsen Follow-up/Referrals: Rosa Lauren MD [Outside Practitioners] - (Date & Time 08/14/2024 11:20 AM Provider: Rosa Lauren MD [facility] ) Ok Gross, DO [Men'S Garment Fitter] - Diet: Carb Consistent or DM2 and Low Sodium (2gm) Fluids: 1800ml (7 cups) Addtl Attending Provider Instructions: Call 911 and go to the Emergency Room if: * You have tightness or pain in your chest that does not go away with rest or Nitroglycerin * You are very short of breath even with rest Call your doctor if any of the following symptoms or problems start or get worse: * Shortness of breath or difficulty breathing * Wake up at night short of breath * Chest pain * Cough * Swelling of your hands, fee, or legs * More fatigued or tired with your normal activity * Palpitations - sudden fast heart beats WEIGHT * Weigh yourself every morning after using the bathroom. * Use the same scale. * Wear the same amount of clothing. * Write your weight down on your chart. * Call your doctor if you gain more than 2-3 pounds in 1-2 days. MEDICATIONS * Use this discharge instruction sheet for instructions. * Take your medications at the time your doctor ordered. * Do not skip a dose of your medicines. * If you miss a dose of medicine, take as soon as possible, but DO NOT DOUBLE A DOSE. * Read your medicine information when you get home. * Know all of the side effects of your medicine. * Call your doctor's office if you have any side effects. * Be sure all of your doctors know what medicine and herbs you take (including cold, flu, and herbal medicine). * Pain Medicine: If you do not get relief from your pain, please call your doctor for help. Take the following with you to your follow-up doctor appointments: * Weight Chart * Medication List * List of questions Do not drink excessive alcohol, beer or wine. Addtl Cycle Repairer Provider Instructions: Wear your BiPAP at night and during the day as needed as previous Continue to wear your oxygen as previous Follow-up with your specialists as coordinated Pending Studies at Discharge: No Stand-Alone Forms: My [facility] [employer], Smoking Cessation Medications and DC Order Prescriptions: New carvedilol 12.5 mg Tablet 12.5 mg PO BIDM Qty: 60 0RF buspirone 5 mg Tablet 5 mg PO TID Qty: 90 0RF torsemide 20 mg Tablet 40 mg PO QAM Qty: 60 0RF Eliquis 5 mg Tablet 5 mg PO BID Qty: 60 0RF acetaminophen 500 mg capsule 1,000 mg PO TID Qty: 300 0RF Continued atorvastatin 40 mg Tablet 40 mg PO DAILY clopidogrel 75 mg Tablet 75 mg PO DAILY cholecalciferol (vitamin D3) [Vitamin D3] 125 mcg (5,000 unit) Tablet 125 mcg PO DAILY Trelegy Ellipta 100-62.5-25 mcg Blister With Device 1 inh INHALATION DAILY Discontinued carvedilol 6.25 mg Tablet 6.25 mg PO BID Rx Instructions: must administer with a meal/food lisinopril 20 mg Tablet 20 mg PO DAILY torsemide 10 mg tablet 20 mg PO DAILY PRN (Reason: swelling) Discharge Orders: Discharge Order- CHF (Routine); Ordered 08/06/24 Ordered By: Arelis Steel/Other Patient Handouts: What Is Heart Failure, Heart Failure Flare Up Signs, Heart Failure: Tracking Your Weight, High Blood Sugar (Hyperglycemia), Hypoglycemia (Low Blood Sugar), Managing Type 2 Diabetes, Heart Failure Make Changes Diet Admission Data Admit Date/Time: 08/01/24 14:47 Attending Provider: Arelis Albarado I. Admit Provider: Harley Meléndez Primary Care Provider: Nury Reyes Other Providers: Harley Meléndez; Ok Gross; Frandy Frederick; [facility]; Freddy Vargas Other Interventions: Discharge Summary Assessment (RN) Last Done: 08/06/24 10:09
[2024-08-06 11:54] VITALS: BP 105/68; PULSE 62; RESP 17; TEMP 97.9; O2SAT 95
== END 2024-08-06 15:20 | disposition home health service (06) | DRG 291 ==
LOC: ED 12:35 → 2S 14:47 → SUATTDRO 14:47 → 2S 17:29